=== PATIENT | male | born 1945 | race Caucasian/White ===

== ENCOUNTER 2017-11-25 07:16 | Day surgery (SDC) | payer OTHER ==
[2017-11-22 17:08] VITALS: BMI 18.8
[2017-11-25] MEDS ORDERED: MIDAZOLAM HCL 2 MG/2 ML SINGLE DOSE VIAL ONE ×2 (08:26)
[2017-11-25] MEDS ORDERED: DEXAMETHASONE SOD PHOSPHATE 4 MG/1 ML VIAL ONE (08:43)
[2017-11-25 09:17] VITALS: TEMP 97.8
--- NOTE | 2017-11-25 09:21 | OP ---
Operative Note - Note: Operative Date: 11/25/17 Pre-Operative Diagnosis: Right kidney stone Operation: Right ESWL Findings: 7 mm mid pole kidney stone Post-Operative Diagnosis: Same as Pre-op Surgeon: Lucio Diaz Anesthesia: Fractional Estimated Blood Loss (mls): 0
[2017-11-25 11:07] VITALS: BP 120/72; PULSE 65
--- NOTE | 2017-11-26 07:56 | OP ---
DATE OF OPERATION: 11/25/2017 PREOPERATIVE DIAGNOSIS: Right renal stone. POSTOPERATIVE DIAGNOSIS: Right renal stone. PROCEDURE: Right extracorporeal shock wave lithotripsy. ATTENDING: Ashwin Roper MD ANESTHESIA: Fractional. DESCRIPTION OF OPERATION: The patient was brought in the operating room and placed in supine position on the operating room table. Ultrasonography and fluoroscopy were performed. A 7-mm right mid-pole stone was identified. Anesthesia and preoperative antibiotics were then administered; 3000 impulses at 17 joules of power were administered to the stone. Excellent fragmentation of the stone was noted. No complications were noted. The patient tolerated the procedure very well. ASHWIN ROPER M.D. /[id number]
== END 2017-11-25 11:07 | disposition home or self-care (01) ==
LOC: JASU-SURG 07:16
PROVIDERS: ATTEND Urology
PROC: 0TF3XZZ Fragmentation in Right Kidney Pelvis, External Approach (ICD-10-PCS; principal; 2017-11-25 10:15)
DX: N20.0 Calculus of kidney (principal)

== ENCOUNTER 2019-04-27 06:14 | Day surgery (SDC) | payer OTHER ==
[2019-04-23 14:45] VITALS: BMI 19.4
[2019-04-27] MEDS ORDERED: MIDAZOLAM HCL 2 MG/2 ML SINGLE DOSE VIAL ONE (07:48)
[2019-04-27] MEDS ORDERED: SUCCINYLCHOLINE CHLORIDE 200 MG/10 ML SYRINGE ONE (07:50)
[2019-04-27] MEDS ORDERED: PROPOFOL 20 ML ONE (08:28)
[2019-04-27 09:09] VITALS: TEMP 97.8
--- NOTE | 2019-04-27 09:09 | OP ---
Operative Note - Note: Operative Date: 04/27/19 Pre-Operative Diagnosis: Right renal stone Operation: Right ESWL Findings: 6 mm lower pole Right renal stone Post-Operative Diagnosis: Same as Pre-op Surgeon: Lucio Diaz Anesthesia: Fractional Estimated Blood Loss (mls): 0 Operative Report Dictated: Yes
[2019-04-27 09:59] VITALS: BP 107/67; PULSE 75
--- NOTE | 2019-04-28 09:05 | OP ---
DATE OF OPERATION: 04/27/2019 PREOPERATIVE DIAGNOSIS: Right renal stone. POSTOPERATIVE DIAGNOSIS: Right renal stone. PROCEDURE PERFORMED: Right extracorporeal shock wave lithotripsy. SURGEON: Ashwin Roper MD ANESTHESIA: Fractional. DESCRIPTION OF PROCEDURE: The patient was brought to the operating room and placed in the supine position on the operating room table. Ultrasonography and fluoroscopy were performed. A 6-mm right lower pole renal stone was identified. At this point, anesthesia and preoperative antibiotics were administered. Shock wave lithotripsy was then started. Excellent fragmentation of the 6-mm right lower pole stone was noted. There were no complications were noted. DISPOSITION: The patient was sent to the recovery room. ASHWIN ROPER M.D. [id number]
== END 2019-04-27 09:50 | disposition home or self-care (01) ==
LOC: JASU-SURG 06:14
PROVIDERS: ATTEND Urology
PROC: 0TF3XZZ Fragmentation in Right Kidney Pelvis, External Approach (ICD-10-PCS; principal; 2019-04-27 08:00)
DX: N20.0 Calculus of kidney (principal)

== ENCOUNTER 2021-01-28 19:32 | Inpatient (IN) | payer OTHER ==
[2021-01-28 21:12] LABS: EPI CELLS 36 /uL (0-25.1); HYALINE CASTS 2 /uL (0-3.1); PH,URINE 5.5 (5.0-8.0); URINE APPEARANCE CLOUDY; URINE BACTERIA 14 /uL (0-1359); URINE BILIRUBIN NEGATIVE (NEGATIVE); URINE COLOR YELLOW; URINE GLUCOSE (UA) NEGATIVE (NEGATIVE); URINE KETONE NEGATIVE (NEGATIVE); URINE LEUK ESTERASE 2+ (NEGATIVE); URINE NITRITE NEGATIVE (NEGATIVE); URINE PROTEIN 3+ (NEGATIVE); URINE RBC 182 /uL (0-23.9); URINE WBC 331 /uL (0-25.8)
[2021-01-28 21:16] LABS: BASO % 0.4 % (0-2.0); EOS % 0.6 % (0-4.5); HEMATOCRIT 39.4 % (35.4-49); HEMOGLOBIN 13.2 GM/dL (11.7-16.9); LYMPH % 5.3 % (8-40); MCHC 33.4 g/dl (32.0-35.9); MEAN CELL VOLUME 95.6 fl (80-96); MONO % 7.5 % (3.8-10.2); NEUT % 86.2 % (42.8-82.8); PLATELET COUNT 213 10^3/uL (134-434); RBC 4.12 M/mm3 (4.00-5.60); RDW 15.1 % (11.9-15.9); WHITE BLOOD COUNT 21.1 K/mm3 (4.0-10.0)
[2021-01-28 21:30] LABS: CHLORIDE 104 mmol/L (98-107); SODIUM 137 mmol/L (136-145)
[2021-01-28 21:32] LABS: CALCIUM 8.7 mg/dL (8.5-10.1)
[2021-01-28 21:33] LABS: ALBUMIN 2.6 g/dl (3.4-5.0); ANION GAP 11 MMOL/L (8-16); BLOOD UREA NITROGEN 42.1 mg/dL (7-18); CO2 21 mmol/L (21-32)
[2021-01-28 21:34] LABS: GLUCOSE,RANDOM 88 mg/dL (74-106)
[2021-01-28 21:36] LABS: CREATININE 2.9 mg/dL (0.55-1.3); SGOT/AST 17 U/L (15-37); SGPT/ALT 12 U/L (13-61)
[2021-01-28 21:37] LABS: BILIRUBIN,TOTAL 0.3 mg/dL (0.2-1); TOT PROT 7.5 g/dl (6.4-8.2)
[2021-01-28 21:39] LABS: ALK PHOS 106 U/L (45-117)
[2021-01-28] MEDS ORDERED: PIPERACILLIN/TAZOB 3.375 GM 3.375 GM in DEXTROSE 5%-WATER - 50 ML IVPB ONE (21:49)
[2021-01-28 21:56] LABS: ANISOCYTOSIS 1+; MACROCYTOSIS 0; PLATELET ESTIMATE NORMAL; TARGET CELLS 1+
[2021-01-28] MEDS ORDERED: LACTATED RINGERS SOLUTION 1000 ML INFUS.BAG IV ONE (23:12)
[2021-01-28 23:50] LABS: LACTIC ACID 3.7 mmol/L (0.4-2.0)
[2021-01-29] MEDS ORDERED: LORazepam 1 MG TABLET PO PRN ×2 (01:06→20:01)
[2021-01-29] MEDS ORDERED: ALBUTEROL SO4 HFA INHALER IH PRN (01:15)
[2021-01-29] MEDS ORDERED: THIAMINE HCL 200 MG/2 ML VIAL IVPB ONE (01:47)
[2021-01-29] MEDS: SODIUM CHLORIDE 1,000 ML IV SCH (02:36)
[2021-01-29] MEDS ORDERED: HEPARIN NA (PORCINE) 5,000 UNITS/ML 1ML VIAL ONE ×2 (06:39→14:24)
[2021-01-29] MEDS: HEPARIN NA (PORCINE) 5,000 UNITS/ML 1ML VIAL SQ SCH ×3 (06:45→21:07)
[2021-01-29] MEDS: VANCOMYCIN 250 MG/5 ML ORAL SOLUTION PO SCH ×3 (07:11→21:06)
[2021-01-29 07:31] LABS: HEMATOCRIT 36.9 % (35.4-49); HEMOGLOBIN 12.2 GM/dL (11.7-16.9); MCH 31.7 pg (25.7-33.7); MCHC 32.9 g/dl (32.0-35.9); MEAN CELL VOLUME 96.2 fl (80-96); MEAN PLT VOLUME 8.4 fl (7.5-11.1); PLATELET COUNT 202 10^3/uL (134-434); RBC 3.84 M/mm3 (4.00-5.60); RDW 15.2 % (11.9-15.9); WHITE BLOOD COUNT 18.7 K/mm3 (4.0-10.0)
[2021-01-29 07:50] LABS: MAGNESIUM 1.7 mg/dL (1.8-2.4)
[2021-01-29 07:52] LABS: CREATININE 2.6 mg/dL (0.55-1.3)
[2021-01-29] MEDS ORDERED: TAMSULOSIN HCL 0.4 MG CAP ONE (08:03)
[2021-01-29] MEDS: TAMSULOSIN HCL 0.4 MG CAP PO SCH (08:35)
[2021-01-29] MEDS ORDERED: FOLIC ACID 1 MG TABLET (FP) ONE (09:57)
[2021-01-29] MEDS ORDERED: CEFTRIAXONE 1 GM/50 ML BAG ONE (09:58)
[2021-01-29] MEDS ORDERED: MULTIVITAMINS (DAILY MVI) TABLET (FP) ONE (09:59)
[2021-01-29] MEDS ORDERED: BUDESONIDE/FORMETEROL FUMARATE 160/4.5 mcg INHALER IH SCH (10:00)
[2021-01-29] MEDS ORDERED: THIAMINE HCL 100 MG TABLET (FP) ONE (10:01)
[2021-01-29] MEDS: FOLIC ACID 1 MG TABLET (FP) PO SCH (10:12)
[2021-01-29] MEDS: CEFTRIAXONE 1 GM in DEXTROSE 5%-WATER - 50 ML IVPB SCH (10:12)
[2021-01-29] MEDS: THIAMINE HCL 100 MG TABLET (FP) PO SCH (10:12)
[2021-01-29] MEDS: MULTIVITAMINS (DAILY MVI) TABLET (FP) PO SCH (10:12)
[2021-01-29] MEDS: TIOTROPIUM BROMIDE 2.5 MCG (SPIRIVA) RESPIMAT INHALER IH SCH (10:35)
[2021-01-29] MEDS: HYDROCORTISONE 2.5% TOPICAL CREAM 30 GM TUBE PR SCH (10:35)
[2021-01-29] MEDS: BUDESONIDE/FORMETEROL FUMARATE 160/4.5 mcg INHALER IH SCH ×2 (10:35→21:07)
[2021-01-29] MEDS: BACITRACIN 15 GM TUBE TOPICAL OINTMENT TP SCH (21:06)
[2021-01-29] MEDS: MONTELUKAST NA 10 MG TABLET PO SCH (21:06)
[2021-01-29] MEDS: LORazepam 1 MG TABLET PO SCH (22:44)
[2021-01-30] MEDS: VANCOMYCIN 250 MG/5 ML ORAL SOLUTION PO SCH ×2 (01:00→06:00)
[2021-01-30] MEDS: HEPARIN NA (PORCINE) 5,000 UNITS/ML 1ML VIAL SQ SCH ×3 (06:00→21:37)
[2021-01-30] MEDS: LORazepam 1 MG TABLET PO SCH ×4 (06:01→23:05)
[2021-01-30 09:26] LABS: BASO % 0.8 % (0-2.0); EOS % 0.7 % (0-4.5); HEMOGLOBIN 11.7 GM/dL (11.7-16.9); LYMPH % 5.7 % (8-40); MCH 31.8 pg (25.7-33.7); MCHC 33.3 g/dl (32.0-35.9); MEAN CELL VOLUME 95.5 fl (80-96); MEAN PLT VOLUME 8.5 fl (7.5-11.1); MONO % 7.4 % (3.8-10.2); NEUT % 85.4 % (42.8-82.8); PLATELET COUNT 204 10^3/uL (134-434); RBC 3.66 M/mm3 (4.00-5.60); WHITE BLOOD COUNT 10.3 K/mm3 (4.0-10.0)
[2021-01-30] MEDS ORDERED: cefTRIAXone SODIUM 1 GM VIAL ONE (09:42)
[2021-01-30] MEDS ORDERED: PT OWN MED DRAWER 7, Y5N ONE (09:42)
[2021-01-30] MEDS ORDERED: DEXTROSE 5%-WATER - 50 ML IVPB ONE (09:43)
[2021-01-30] MEDS: CEFTRIAXONE 1 GM in DEXTROSE 5%-WATER - 50 ML IVPB SCH (09:56)
[2021-01-30] MEDS: MULTIVITAMINS (DAILY MVI) TABLET (FP) PO SCH (09:56)
[2021-01-30] MEDS: THIAMINE HCL 100 MG TABLET (FP) PO SCH (09:56)
[2021-01-30] MEDS: TAMSULOSIN HCL 0.4 MG CAP PO SCH (09:57)
[2021-01-30] MEDS: FOLIC ACID 1 MG TABLET (FP) PO SCH (09:57)
[2021-01-30] MEDS: HYDROCORTISONE 2.5% TOPICAL CREAM 30 GM TUBE PR SCH (09:57)
[2021-01-30] MEDS: BACITRACIN 15 GM TUBE TOPICAL OINTMENT TP SCH ×2 (09:57→21:36)
[2021-01-30] MEDS: SODIUM CHLORIDE 1,000 ML IV SCH (09:59)
[2021-01-30] MEDS: BUDESONIDE/FORMETEROL FUMARATE 160/4.5 mcg INHALER IH SCH ×2 (10:05→21:37)
[2021-01-30] MEDS: TIOTROPIUM BROMIDE 2.5 MCG (SPIRIVA) RESPIMAT INHALER IH SCH (10:05)
[2021-01-30 10:06] LABS: BLOOD UREA NITROGEN 31.7 mg/dL (7-18); CALCIUM 8.7 mg/dL (8.5-10.1)
[2021-01-30 10:10] LABS: CREATININE 2.3 mg/dL (0.55-1.3); PHOSPHOROUS 3.1 mg/dL (2.5-4.9)
[2021-01-30 10:11] LABS: BILIRUBIN,TOTAL 0.3 mg/dL (0.2-1)
[2021-01-30 10:13] LABS: ALBUMIN 1.9 g/dl (3.4-5.0)
[2021-01-30 12:01] LABS: MAGNESIUM 1.9 mg/dL (1.8-2.4)
[2021-01-30] MEDS: LACTATED RINGERS SOLUTION 1,000 ML/1,000 ML INFUS.BAG IV SCH (14:46)
[2021-01-30] MEDS: LACTOBACILLUS ACIDOPHILUS 1 TABLET PO SCH (14:46)
[2021-01-30] MEDS: MONTELUKAST NA 10 MG TABLET PO SCH (21:37)
[2021-01-31] MEDS: HEPARIN NA (PORCINE) 5,000 UNITS/ML 1ML VIAL SQ SCH ×3 (06:15→21:24)
[2021-01-31] MEDS: LORazepam 1 MG TABLET PO SCH ×4 (06:16→23:12)
[2021-01-31 09:11] LABS: INR 0.84 (0.83-1.09); PROTHROMBIN TIME (PATIENT) 9.4 SEC (9.7-13.0)
[2021-01-31] MEDS ORDERED: cefTRIAXone SODIUM 1 GM VIAL ONE (10:45)
[2021-01-31] MEDS ORDERED: DEXTROSE 5%-WATER - 50 ML IVPB ONE (10:46)
[2021-01-31] MEDS: TAMSULOSIN HCL 0.4 MG CAP PO SCH (10:57)
[2021-01-31] MEDS: THIAMINE HCL 100 MG TABLET (FP) PO SCH (10:57)
[2021-01-31] MEDS: LACTOBACILLUS ACIDOPHILUS 1 TABLET PO SCH (10:58)
[2021-01-31] MEDS: MULTIVITAMINS (DAILY MVI) TABLET (FP) PO SCH (10:58)
[2021-01-31] MEDS: HYDROCORTISONE 2.5% TOPICAL CREAM 30 GM TUBE PR SCH (10:58)
[2021-01-31] MEDS: FOLIC ACID 1 MG TABLET (FP) PO SCH (10:58)
[2021-01-31] MEDS: CEFTRIAXONE 1 GM in DEXTROSE 5%-WATER - 50 ML IVPB SCH (10:59)
[2021-01-31] MEDS: BACITRACIN 15 GM TUBE TOPICAL OINTMENT TP SCH ×2 (10:59→21:20)
[2021-01-31] MEDS: TIOTROPIUM BROMIDE 2.5 MCG (SPIRIVA) RESPIMAT INHALER IH SCH (11:07)
[2021-01-31] MEDS: BUDESONIDE/FORMETEROL FUMARATE 160/4.5 mcg INHALER IH SCH ×2 (11:07→21:24)
[2021-01-31 11:48] LABS: ALBUMIN 2.1 g/dl (3.4-5.0); BLOOD UREA NITROGEN 21.8 mg/dL (7-18)
[2021-01-31 11:51] LABS: CREATININE 2.2 mg/dL (0.55-1.3)
[2021-01-31 11:52] LABS: HEMATOCRIT 36.7 % (35.4-49); HEMOGLOBIN 12.6 GM/dL (11.7-16.9); MCHC 34.2 g/dl (32.0-35.9); MEAN CELL VOLUME 93.6 fl (80-96); PLATELET COUNT 223 10^3/uL (134-434); RBC 3.92 M/mm3 (4.00-5.60); RDW 14.7 % (11.9-15.9)
[2021-01-31 11:53] LABS: BILIRUBIN,TOTAL 0.2 mg/dL (0.2-1); TOT PROT 6.5 g/dl (6.4-8.2)
[2021-01-31 12:21] LABS: ANISOCYTOSIS 0; HELMET CELLS 0; HOWELL-JOLLY BODIES 0; MACROCYTOSIS 0; OVALOCYTE 0; PLATELET ESTIMATE NORMAL; ROULEAU 0; SICKELED CELLS 0; TARGET CELLS 0; TEAR DROP CELLS 0; TOXIC GRANULATION 0
[2021-01-31] MEDS: LACTATED RINGERS SOLUTION 1,000 ML/1,000 ML INFUS.BAG IV SCH ×2 (18:03→21:18)
[2021-01-31] MEDS: MONTELUKAST NA 10 MG TABLET PO SCH (21:19)
[2021-02-01] MEDS ORDERED: LORazepam 0.5 MG TABLET PO PRN
[2021-02-01] MEDS: LORazepam 0.5 MG TABLET PO SCH ×3 (05:11→18:07)
[2021-02-01] MEDS: HEPARIN NA (PORCINE) 5,000 UNITS/ML 1ML VIAL SQ SCH ×2 (05:12→13:40)
[2021-02-01] MEDS: LACTATED RINGERS SOLUTION 1,000 ML/1,000 ML INFUS.BAG IV SCH ×2 (06:49→13:40)
[2021-02-01 08:01] LABS: BASO % 0.7 % (0-2.0); EOS % 3.3 % (0-4.5); HEMOGLOBIN 11.3 GM/dL (11.7-16.9); LYMPH % 16.1 % (8-40); MCH 31.9 pg (25.7-33.7); MCHC 34.1 g/dl (32.0-35.9); MEAN CELL VOLUME 93.6 fl (80-96); MEAN PLT VOLUME 7.6 fl (7.5-11.1); MONO % 18.8 % (3.8-10.2); NEUT % 61.1 % (42.8-82.8); PLATELET COUNT 238 10^3/uL (134-434); RBC 3.53 M/mm3 (4.00-5.60); RDW 14.5 % (11.9-15.9); WHITE BLOOD COUNT 6.4 K/mm3 (4.0-10.0)
[2021-02-01 08:22] LABS: CALCIUM 8.5 mg/dL (8.5-10.1)
[2021-02-01 08:23] LABS: BLOOD UREA NITROGEN 24.7 mg/dL (7-18)
[2021-02-01 08:26] LABS: CREATININE 2.3 mg/dL (0.55-1.3); PHOSPHOROUS 2.8 mg/dL (2.5-4.9)
[2021-02-01 08:27] LABS: BILIRUBIN,TOTAL 0.3 mg/dL (0.2-1); TOT PROT 5.4 g/dl (6.4-8.2)
[2021-02-01 08:30] LABS: MAGNESIUM 1.8 mg/dL (1.8-2.4)
[2021-02-01 08:32] LABS: ALBUMIN 1.7 g/dl (3.4-5.0)
[2021-02-01] MEDS ORDERED: cefTRIAXone SODIUM 1 GM VIAL ONE (10:07)
[2021-02-01] MEDS ORDERED: DEXTROSE 5%-WATER - 50 ML IVPB ONE (10:08)
[2021-02-01] MEDS: CEFTRIAXONE 1 GM in DEXTROSE 5%-WATER - 50 ML IVPB SCH (10:53)
[2021-02-01] MEDS: BUDESONIDE/FORMETEROL FUMARATE 160/4.5 mcg INHALER IH SCH (10:55)
[2021-02-01] MEDS: TIOTROPIUM BROMIDE 2.5 MCG (SPIRIVA) RESPIMAT INHALER IH SCH (10:57)
[2021-02-01] MEDS: HYDROCORTISONE 2.5% TOPICAL CREAM 30 GM TUBE PR SCH (10:58)
[2021-02-01] MEDS: THIAMINE HCL 100 MG TABLET (FP) PO SCH (10:59)
[2021-02-01] MEDS: TAMSULOSIN HCL 0.4 MG CAP PO SCH (10:59)
[2021-02-01] MEDS: LACTOBACILLUS ACIDOPHILUS 1 TABLET PO SCH (10:59)
[2021-02-01] MEDS: MULTIVITAMINS (DAILY MVI) TABLET (FP) PO SCH (10:59)
[2021-02-01] MEDS ORDERED: ERTAPENEM SODIUM 0.5 GM in SODIUM CHLORIDE 50 ML IVPB SCH (11:00)
[2021-02-01] MEDS: FOLIC ACID 1 MG TABLET (FP) PO SCH (11:02)
[2021-02-01] MEDS: BACITRACIN 15 GM TUBE TOPICAL OINTMENT TP SCH (11:03)
[2021-02-01] MEDS ORDERED: PIPERACILLIN/TAZOB 2.25 GM 2.25 GM in DEXTROSE 5%-WATER - 50 ML IVPB SCH ×2 (13:24→18:00)
[2021-02-01 16:09] VITALS: BP 136/78; PULSE 78; TEMP 98.2
[2021-02-01] MEDS ORDERED: PT OWN MED DRAWER 7, Y5N ONE (16:51)
[2021-02-02] MEDS ORDERED: LORazepam 0.5 MG TABLET PO ONE (05:00)
[2021-02-02] MEDS ORDERED: PIPERACILLIN/TAZOB 3.375 GM 3.375 GM in DEXTROSE 5%-WATER - 50 ML IVPB SCH (10:00)
== END 2021-02-01 19:03 | disposition home or self-care (01) | DRG 862 ==
LOC: JER 19:32 → JERBED 01-29 00:24 → J8W 01-29 19:12
PROVIDERS: ATTEND Internal Medicine
DX: T81.44XA Sepsis following a procedure, initial encounter (principal); A41.9 Sepsis, unspecified organism; N39.0 Urinary tract infection, site not specified; A04.72 Enterocolitis due to Clostridium difficile, not specified as recurrent; N17.9 Acute kidney failure, unspecified; E87.2 Acidosis; F10.230 Alcohol dependence with withdrawal, uncomplicated; N18.4 Chronic kidney disease, stage 4 (severe); Y83.3 Surgical operation with formation of external stoma as the cause of abnormal reaction of the patient, or of later complication, without mention of misadventure at the time of the procedure; I12.9 Hypertensive chronic kidney disease with stage 1 through stage 4 chronic kidney disease, or unspecified chronic kidney disease; N40.0 Benign prostatic hyperplasia without lower urinary tract symptoms; N28.1 Cyst of kidney, acquired; J44.9 Chronic obstructive pulmonary disease, unspecified; R19.7 Diarrhea, unspecified; K64.4 Residual hemorrhoidal skin tags; N41.9 Inflammatory disease of prostate, unspecified; B96.1 Klebsiella pneumoniae [K. pneumoniae] as the cause of diseases classified elsewhere; Z72.0 Tobacco use
CPT/HCPCS: 36415; 71046-TC-FY; 74176-TC; 80048; 80053; 80307; 81003; 83605; 83735; 84100; 84484; 85025; 85027; 85610; 85730; 86850; 86900; 86901; 87040; 87086; 87186; 87324; 87449; 93005; 93010; 97116-GP; 97161-GP; 99285-25; C9803; J1644; U0003; U0005

== ENCOUNTER 2021-03-03 12:17 | Inpatient (IN) | payer OTHER ==
[2021-03-03 12:54] VITALS: BMI 19.9
[2021-03-03] MEDS ORDERED: ALBUTEROL SO4 2.5/IPRATROPIUM 0.5 INH SOL 3 ML VIAL.NEB. NEB ONE ×2 (14:28→15:11)
[2021-03-03] MEDS ORDERED: methylPREDNISolone NA SUCC 125 MG/2 ML VIAL IVPB ONE (14:28)
[2021-03-03] MEDS ORDERED: CEFTRIAXONE 1 GM in DEXTROSE 5%-WATER - 50 ML IVPB ONE (14:30)
[2021-03-03] MEDS ORDERED: AZITHROMYCIN IVPB 500 MG in DEXTROSE 5%-WATER - 250 ML IVPB ONE (14:31)
[2021-03-03] MEDS ORDERED: methylPREDNISolone NA SUCC 125 MG/2 ML VIAL ONE (15:11)
[2021-03-03] MEDS ORDERED: CEFTRIAXONE 1 GM/50 ML BAG ONE (15:12)
[2021-03-03 16:18] LABS: BASO % 0.3 % (0-2.0); EOS % 4.2 % (0-4.5); HEMOGLOBIN 12.9 GM/dL (11.7-16.9); LYMPH % 9.1 % (8-40); MCH 29.6 pg (25.7-33.7); MCHC 33.1 g/dl (32.0-35.9); MEAN CELL VOLUME 89.4 fl (80-96); MEAN PLT VOLUME 7.2 fl (7.5-11.1); MONO % 8.7 % (3.8-10.2); NEUT % 77.7 % (42.8-82.8); PLATELET COUNT 323 10^3/uL (134-434); RBC 4.37 M/mm3 (4.00-5.60); RDW 15.8 % (11.9-15.9); WHITE BLOOD COUNT 11.9 K/mm3 (4.0-10.0)
[2021-03-03 16:43] LABS: CHLORIDE 110 mmol/L (98-107)
[2021-03-03 16:45] LABS: CALCIUM 9.3 mg/dL (8.5-10.1)
[2021-03-03 16:46] LABS: ALBUMIN 3.3 g/dl (3.4-5.0); CO2 19 mmol/L (21-32); GLUCOSE,RANDOM 78 mg/dL (74-106)
[2021-03-03 16:49] LABS: CREATININE 3.8 mg/dL (0.55-1.3); SGOT/AST 33 U/L (15-37); SGPT/ALT 18 U/L (13-61)
[2021-03-03 16:50] LABS: BILIRUBIN,TOTAL 0.5 mg/dL (0.2-1); LDH 485 U/L (87-246)
[2021-03-03 16:51] LABS: TOT PROT 9.2 g/dl (6.4-8.2)
[2021-03-03 16:52] LABS: ALK PHOS 121 U/L (45-117)
[2021-03-03 16:54] LABS: N-TERMINAL BNP 1256.2 pg/ml (5-450)
[2021-03-03] MEDS ORDERED: SODIUM CHLORIDE 0.9% 500 ML INFUS.BAG IV ONE (17:04)
[2021-03-03] MEDS ORDERED: ENOXAPARIN NA (PORCINE) 60 MG/0.6 ML DISP.SYRIN SQ ONE (18:15)
[2021-03-03] MEDS ORDERED: AZITHROMYCIN IVPB 500 MG/250 ML BAG IVPB ONE (18:53)
[2021-03-03 18:59] LABS: ERYTHROCYTE SEDIMENTATION RATE 60 mm/hr (0-20)
[2021-03-03 23:07] LABS: SODIUM 140 mmol/L (136-145)
[2021-03-03 23:18] LABS: ANION GAP 9 MMOL/L (8-16)
[2021-03-03] MEDS ORDERED: HEPARIN NA (PORCINE) 5,000 UNITS/ML 1ML VIAL ONE (23:45)
[2021-03-03] MEDS ORDERED: MONTELUKAST NA 10 MG TABLET ONE (23:45)
[2021-03-03] MEDS: HEPARIN NA (PORCINE) 5,000 UNITS/ML 1ML VIAL SQ SCH (23:57)
[2021-03-03] MEDS: MONTELUKAST NA 10 MG TABLET PO SCH (23:57)
[2021-03-04 02:03] LABS: BLOOD UREA NITROGEN 52.9 mg/dL (7-18); CALCIUM 8.7 mg/dL (8.5-10.1)
[2021-03-04 02:07] LABS: CREATININE 3.7 mg/dL (0.55-1.3)
[2021-03-04 02:08] LABS: EPI CELLS 2 /uL (0-25.1); HYALINE CASTS 0 /uL (0-3.1); URINE APPEARANCE CLEAR; URINE BACTERIA 0 /uL (0-1359); URINE BILIRUBIN NEGATIVE (NEGATIVE); URINE COLOR YELLOW; URINE GLUCOSE (UA) TRACE (NEGATIVE); URINE KETONE NEGATIVE (NEGATIVE); URINE LEUK ESTERASE NEGATIVE (NEGATIVE); URINE NITRITE NEGATIVE (NEGATIVE); URINE PROTEIN 3+ (NEGATIVE); URINE RBC 30 /uL (0-23.9); URINE UROBILINOGEN 0.2 mg/dL (0.2-1.0); URINE WBC 2 /uL (0-25.8)
[2021-03-04] MEDS ORDERED: methylPREDNISolone NA SUCC 40 MG/1 ML VIAL ONE ×3 (04:37→19:36)
[2021-03-04] MEDS: BUDESONIDE/FORMETEROL FUMARATE 160/4.5 mcg INHALER IH SCH ×3 (05:00→22:41)
[2021-03-04] MEDS: methylPREDNISolone NA SUCC 40 MG/1 ML VIAL IVPUSH SCH ×3 (05:00→19:46)
[2021-03-04 09:41] LABS: HEMATOCRIT 34.4 % (35.4-49); HEMOGLOBIN 11.6 GM/dL (11.7-16.9); MCH 30.7 pg (25.7-33.7); MCHC 33.7 g/dl (32.0-35.9); MEAN CELL VOLUME 91.3 fl (80-96); MEAN PLT VOLUME 7.1 fl (7.5-11.1); PLATELET COUNT 308 10^3/uL (134-434); RBC 3.77 M/mm3 (4.00-5.60); RDW 15.8 % (11.9-15.9); WHITE BLOOD COUNT 9.1 K/mm3 (4.0-10.0)
[2021-03-04] MEDS ORDERED: HEPARIN NA (PORCINE) 5,000 UNITS/ML 1ML VIAL ONE ×2 (10:00→22:22)
[2021-03-04] MEDS ORDERED: AZITHROMYCIN IVPB 500 MG/250 ML BAG IVPB ONE (10:01)
[2021-03-04] MEDS: AZITHROMYCIN IVPB 500 MG/250 ML BAG IVPB SCH (10:13)
[2021-03-04] MEDS: HEPARIN NA (PORCINE) 5,000 UNITS/ML 1ML VIAL SQ SCH ×2 (10:13→22:41)
[2021-03-04] MEDS: TIOTROPIUM BROMIDE 2.5 MCG (SPIRIVA) RESPIMAT INHALER IH SCH (10:14)
[2021-03-04 10:23] LABS: ALBUMIN 2.8 g/dl (3.4-5.0); BLOOD UREA NITROGEN 53.8 mg/dL (7-18); MAGNESIUM 2.3 mg/dL (1.8-2.4)
[2021-03-04 10:25] LABS: PHOSPHOROUS 3.2 mg/dL (2.5-4.9)
[2021-03-04 10:26] LABS: BILIRUBIN,TOTAL 0.2 mg/dL (0.2-1); CREATININE 3.7 mg/dL (0.55-1.3)
[2021-03-04 10:27] LABS: TOT PROT 7.6 g/dl (6.4-8.2)
[2021-03-04 10:41] LABS: ANISOCYTOSIS 0; MACROCYTOSIS 0; PLATELET ESTIMATE NORMAL
[2021-03-04] MEDS ORDERED: SODIUM ZIRCONIUM CYCLOSILICATE (LOKELMA) 5 GM PACKET ONE (14:12)
[2021-03-04] MEDS ORDERED: ALBUTEROL SO4 2.5/IPRATROPIUM 0.5 INH SOL 3 ML VIAL.NEB. NEB ONE ×3 (14:12→21:05)
[2021-03-04] MEDS: ALBUTEROL SO4 2.5/IPRATROPIUM 0.5 INH SOL 3 ML VIAL.NEB. NEB SCH ×2 (14:30→19:46)
[2021-03-04] MEDS: SODIUM ZIRCONIUM CYCLOSILICATE (LOKELMA) 5 GM PACKET PO SCH (14:30)
[2021-03-04] MEDS: SODIUM CHLORIDE 1,000 ML IV SCH (16:32)
[2021-03-04] MEDS ORDERED: ALBUTEROL SO4 0.5 % INH SOLN 2.5 MG/0.5 ML VIAL.NEB. NEB ONE (21:04)
[2021-03-04] MEDS ORDERED: amLODIPine BESYLATE 5 MG TABLET (FP) PO ONE (22:16)
[2021-03-04] MEDS ORDERED: MONTELUKAST NA 10 MG TABLET ONE (22:22)
[2021-03-04] MEDS ORDERED: amLODIPine BESYLATE 5 MG TABLET (FP) ONE (22:22)
[2021-03-04] MEDS: MONTELUKAST NA 10 MG TABLET PO SCH (22:41)
[2021-03-05] MEDS ORDERED: methylPREDNISolone NA SUCC 40 MG/1 ML VIAL ONE ×3 (02:45→17:04)
[2021-03-05] MEDS: methylPREDNISolone NA SUCC 40 MG/1 ML VIAL IVPUSH SCH ×3 (03:00→17:26)
[2021-03-05] MEDS ORDERED: SODIUM ZIRCONIUM CYCLOSILICATE (LOKELMA) 5 GM PACKET ONE (07:48)
[2021-03-05] MEDS ORDERED: ALBUTEROL SO4 2.5/IPRATROPIUM 0.5 INH SOL 3 ML VIAL.NEB. NEB ONE ×2 (07:48→17:03)
[2021-03-05] MEDS ORDERED: HEPARIN NA (PORCINE) 5,000 UNITS/ML 1ML VIAL ONE ×2 (07:49→21:01)
[2021-03-05] MEDS ORDERED: AZITHROMYCIN IVPB 500 MG/250 ML BAG IVPB ONE (07:49)
[2021-03-05] MEDS: ALBUTEROL SO4 2.5/IPRATROPIUM 0.5 INH SOL 3 ML VIAL.NEB. NEB SCH ×3 (09:00→21:17)
[2021-03-05] MEDS: HEPARIN NA (PORCINE) 5,000 UNITS/ML 1ML VIAL SQ SCH ×2 (09:04→21:17)
[2021-03-05 09:21] LABS: HEMATOCRIT 33.2 % (35.4-49); HEMOGLOBIN 10.9 GM/dL (11.7-16.9); MCH 29.8 pg (25.7-33.7); MCHC 32.9 g/dl (32.0-35.9); MEAN CELL VOLUME 90.8 fl (80-96); MEAN PLT VOLUME 7.3 fl (7.5-11.1); PLATELET COUNT 318 10^3/uL (134-434); RBC 3.66 M/mm3 (4.00-5.60); RDW 15.7 % (11.9-15.9); WHITE BLOOD COUNT 19.2 K/mm3 (4.0-10.0)
[2021-03-05] MEDS: BUDESONIDE/FORMETEROL FUMARATE 160/4.5 mcg INHALER IH SCH ×2 (09:30→21:17)
[2021-03-05] MEDS: SODIUM ZIRCONIUM CYCLOSILICATE (LOKELMA) 5 GM PACKET PO SCH (09:30)
[2021-03-05 09:55] LABS: BLOOD UREA NITROGEN 57.9 mg/dL (7-18); MAGNESIUM 2.2 mg/dL (1.8-2.4)
[2021-03-05 09:57] LABS: ALBUMIN 2.7 g/dl (3.4-5.0)
[2021-03-05 09:58] LABS: CREATININE 3.8 mg/dL (0.55-1.3)
[2021-03-05 10:00] LABS: BILIRUBIN,TOTAL 0.2 mg/dL (0.2-1); TOT PROT 7.3 g/dl (6.4-8.2)
[2021-03-05] MEDS: AZITHROMYCIN IVPB 500 MG/250 ML BAG IVPB SCH (10:00)
[2021-03-05 10:28] LABS: ANISOCYTOSIS 1+; MACROCYTOSIS 0; PLATELET ESTIMATE NORMAL
[2021-03-05] MEDS ORDERED: CEFTRIAXONE 1 GM in DEXTROSE 5%-WATER - 50 ML IVPB SCH (10:45)
[2021-03-05] MEDS ORDERED: POLYETHYLENE GLYCOL (HEALTHYLAX) 3350 17 GM PACKET PO ONE (14:16)
[2021-03-05] MEDS ORDERED: amLODIPine BESYLATE 10 MG TABLET (FP) PO SCH (14:45)
[2021-03-05] MEDS ORDERED: POLYETHYLENE GLYCOL (HEALTHYLAX) 3350 17 GM PACKET ONE ×2 (17:03→21:00)
[2021-03-05] MEDS ORDERED: TAMSULOSIN HCL 0.4 MG CAP ONE (17:03)
[2021-03-05] MEDS ORDERED: METOPROLOL TARTRATE 50 MG TABLET (FP) ONE (17:03)
[2021-03-05] MEDS ORDERED: amLODIPine BESYLATE 5 MG TABLET (FP) ONE ×2 (17:05→17:14)
[2021-03-05] MEDS: TIOTROPIUM BROMIDE 2.5 MCG (SPIRIVA) RESPIMAT INHALER IH SCH (17:24)
[2021-03-05] MEDS: SODIUM CHLORIDE 1,000 ML IV SCH (17:24)
[2021-03-05] MEDS: INSULIN SLIDING SCALE (NOVOLOG) 1 VIAL SQ SCH ×3 (17:24→21:17)
[2021-03-05] MEDS: TAMSULOSIN HCL 0.4 MG CAP PO SCH (17:25)
[2021-03-05] MEDS: METOPROLOL TARTRATE 50 MG TABLET (FP) PO SCH (17:25)
[2021-03-05] MEDS ORDERED: DOCUSATE SODIUM 100 MG CAPSULE (FP) PO ONE (21:00)
[2021-03-05] MEDS ORDERED: MONTELUKAST NA 10 MG TABLET ONE (21:00)
[2021-03-05] MEDS: DOCUSATE SODIUM 100 MG CAPSULE (FP) PO SCH (21:17)
[2021-03-05] MEDS: POLYETHYLENE GLYCOL (HEALTHYLAX) 3350 17 GM PACKET PO SCH (21:17)
[2021-03-05] MEDS: MONTELUKAST NA 10 MG TABLET PO SCH (21:17)
[2021-03-06] MEDS ORDERED: methylPREDNISolone NA SUCC 40 MG/1 ML VIAL ONE ×2 (06:23→09:42)
[2021-03-06] MEDS: methylPREDNISolone NA SUCC 40 MG/1 ML VIAL IVPUSH SCH ×4 (06:27→23:25)
[2021-03-06] MEDS: INSULIN SLIDING SCALE (NOVOLOG) 1 VIAL SQ SCH ×4 (07:15→21:26)
[2021-03-06 08:01] LABS: BASO % 0.1 % (0-2.0); HEMATOCRIT 30.7 % (35.4-49); HEMOGLOBIN 10.1 GM/dL (11.7-16.9); LYMPH % 4.1 % (8-40); MEAN CELL VOLUME 90.9 fl (80-96); MEAN PLT VOLUME 6.9 fl (7.5-11.1); NEUT % 88.8 % (42.8-82.8); PLATELET COUNT 300 10^3/uL (134-434); RBC 3.38 M/mm3 (4.00-5.60)
[2021-03-06 08:31] LABS: ALBUMIN 2.6 g/dl (3.4-5.0); BLOOD UREA NITROGEN 63.2 mg/dL (7-18); CALCIUM 8.8 mg/dL (8.5-10.1)
[2021-03-06 08:32] LABS: MAGNESIUM 2.3 mg/dL (1.8-2.4)
[2021-03-06 08:34] LABS: BILIRUBIN,TOTAL 0.3 mg/dL (0.2-1); CREATININE 3.6 mg/dL (0.55-1.3); TOT PROT 6.6 g/dl (6.4-8.2)
[2021-03-06] MEDS: ALBUTEROL SO4 2.5/IPRATROPIUM 0.5 INH SOL 3 ML VIAL.NEB. NEB SCH ×2 (09:00→14:45)
[2021-03-06] MEDS: TAMSULOSIN HCL 0.4 MG CAP PO SCH (09:00)
[2021-03-06] MEDS ORDERED: SODIUM ZIRCONIUM CYCLOSILICATE (LOKELMA) 5 GM PACKET ONE (09:40)
[2021-03-06] MEDS ORDERED: MULTIVITAMINS (DAILY MVI) TABLET (FP) ONE (09:40)
[2021-03-06] MEDS ORDERED: ALBUTEROL SO4 2.5/IPRATROPIUM 0.5 INH SOL 3 ML VIAL.NEB. NEB ONE ×4 (09:40→20:31)
[2021-03-06] MEDS ORDERED: POLYETHYLENE GLYCOL (HEALTHYLAX) 3350 17 GM PACKET ONE (09:40)
[2021-03-06] MEDS ORDERED: METOPROLOL TARTRATE 50 MG TABLET (FP) ONE (09:41)
[2021-03-06] MEDS ORDERED: TAMSULOSIN HCL 0.4 MG CAP ONE (09:41)
[2021-03-06] MEDS ORDERED: HEPARIN NA (PORCINE) 5,000 UNITS/ML 1ML VIAL ONE (09:42)
[2021-03-06] MEDS ORDERED: AZITHROMYCIN IVPB 500 MG/250 ML BAG IVPB ONE (09:42)
[2021-03-06] MEDS: amLODIPine BESYLATE 5 MG TABLET (FP) PO SCH (10:00)
[2021-03-06] MEDS: MULTIVITAMINS (DAILY MVI) TABLET (FP) PO SCH (10:00)
[2021-03-06] MEDS: AZITHROMYCIN IVPB 500 MG/250 ML BAG IVPB SCH (10:00)
[2021-03-06] MEDS: BUDESONIDE/FORMETEROL FUMARATE 160/4.5 mcg INHALER IH SCH ×2 (10:00→23:25)
[2021-03-06] MEDS: TIOTROPIUM BROMIDE 2.5 MCG (SPIRIVA) RESPIMAT INHALER IH SCH (10:00)
[2021-03-06] MEDS: SODIUM ZIRCONIUM CYCLOSILICATE (LOKELMA) 5 GM PACKET PO SCH (10:20)
[2021-03-06] MEDS: HEPARIN NA (PORCINE) 5,000 UNITS/ML 1ML VIAL SQ SCH ×2 (10:20→23:25)
[2021-03-06] MEDS: METOPROLOL TARTRATE 50 MG TABLET (FP) PO SCH (10:30)
[2021-03-06] MEDS: POLYETHYLENE GLYCOL (HEALTHYLAX) 3350 17 GM PACKET PO SCH ×2 (11:28→21:24)
[2021-03-06] MEDS ORDERED: SODIUM CHLORIDE 0.45% 1,000 ML IV SCH (13:30)
[2021-03-06] MEDS: SODIUM CHLORIDE 1,000 ML IV SCH (16:33)
[2021-03-06] MEDS: DOCUSATE SODIUM 100 MG CAPSULE (FP) PO SCH (21:24)
[2021-03-06 22:05] LABS: EPI CELLS 1 /uL (0-25.1); HYALINE CASTS 0 /uL (0-3.1); PH,URINE 5.5 (5.0-8.0); URINE APPEARANCE CLEAR; URINE BACTERIA 0 /uL (0-1359); URINE BILIRUBIN NEGATIVE (NEGATIVE); URINE COLOR YELLOW; URINE GLUCOSE (UA) NEGATIVE (NEGATIVE); URINE KETONE NEGATIVE (NEGATIVE); URINE LEUK ESTERASE NEGATIVE (NEGATIVE); URINE NITRITE NEGATIVE (NEGATIVE); URINE PROTEIN 3+ (NEGATIVE); URINE RBC 13 /uL (0-23.9); URINE UROBILINOGEN 0.2 mg/dL (0.2-1.0); URINE WBC 2 /uL (0-25.8)
[2021-03-06] MEDS: MONTELUKAST NA 10 MG TABLET PO SCH (23:25)
[2021-03-07] MEDS: ALBUTEROL SO4 2.5/IPRATROPIUM 0.5 INH SOL 3 ML VIAL.NEB. NEB SCH ×3 (06:30→14:01)
[2021-03-07] MEDS: INSULIN SLIDING SCALE (NOVOLOG) 1 VIAL SQ SCH ×3 (06:32→17:42)
[2021-03-07 06:47] LABS: HEMATOCRIT 30.2 % (35.4-49); MCH 30.1 pg (25.7-33.7); MEAN CELL VOLUME 91.4 fl (80-96); MEAN PLT VOLUME 7.5 fl (7.5-11.1); PLATELET COUNT 306 10^3/uL (134-434); RDW 15.4 % (11.9-15.9); WHITE BLOOD COUNT 11.1 K/mm3 (4.0-10.0)
[2021-03-07 07:05] LABS: ALBUMIN 2.2 g/dl (3.4-5.0); BLOOD UREA NITROGEN 59.6 mg/dL (7-18); CALCIUM 8.4 mg/dL (8.5-10.1)
[2021-03-07 07:08] LABS: CREATININE 3.5 mg/dL (0.55-1.3)
[2021-03-07 07:10] LABS: BILIRUBIN,TOTAL 0.2 mg/dL (0.2-1); TOT PROT 5.9 g/dl (6.4-8.2)
[2021-03-07] MEDS: TAMSULOSIN HCL 0.4 MG CAP PO SCH (09:30)
[2021-03-07] MEDS: HEPARIN NA (PORCINE) 5,000 UNITS/ML 1ML VIAL SQ SCH (09:43)
[2021-03-07] MEDS: methylPREDNISolone NA SUCC 40 MG/1 ML VIAL IVPUSH SCH (09:44)
[2021-03-07] MEDS: MULTIVITAMINS (DAILY MVI) TABLET (FP) PO SCH (09:44)
[2021-03-07] MEDS: AZITHROMYCIN IVPB 500 MG/250 ML BAG IVPB SCH (09:44)
[2021-03-07] MEDS: POLYETHYLENE GLYCOL (HEALTHYLAX) 3350 17 GM PACKET PO SCH (09:45)
[2021-03-07] MEDS: amLODIPine BESYLATE 5 MG TABLET (FP) PO SCH (09:45)
[2021-03-07] MEDS: METOPROLOL TARTRATE 50 MG TABLET (FP) PO SCH (09:45)
[2021-03-07] MEDS: BUDESONIDE/FORMETEROL FUMARATE 160/4.5 mcg INHALER IH SCH (09:48)
[2021-03-07 10:31] LABS: ANISOCYTOSIS 0; HELMET CELLS 1+; MACROCYTOSIS 0; PLATELET ESTIMATE NORMAL; ROULEAU 1+; TARGET CELLS 1+
[2021-03-07] MEDS ORDERED: SODIUM ZIRCONIUM CYCLOSILICATE (LOKELMA) 5 GM PACKET PO SCH (12:00)
[2021-03-07] MEDS ORDERED: PT OWN MED DRAWER 7, Y5N ONE (12:33)
[2021-03-07] MEDS: TIOTROPIUM BROMIDE 2.5 MCG (SPIRIVA) RESPIMAT INHALER IH SCH (13:27)
[2021-03-07 15:31] VITALS: BP 128/75; PULSE 73; TEMP 98.7
== END 2021-03-07 16:33 | disposition home or self-care (01) | DRG 191 ==
LOC: JER 12:17 → JERBED 18:15 → J4W 03-06 20:28
PROVIDERS: ADMIT Pediatrics; ATTEND Nurse Practitioner Family
DX: J44.1 Chronic obstructive pulmonary disease with (acute) exacerbation (principal); N17.9 Acute kidney failure, unspecified; N40.0 Benign prostatic hyperplasia without lower urinary tract symptoms; F17.210 Nicotine dependence, cigarettes, uncomplicated; E87.5 Hyperkalemia; I12.9 Hypertensive chronic kidney disease with stage 1 through stage 4 chronic kidney disease, or unspecified chronic kidney disease; N18.9 Chronic kidney disease, unspecified
CPT/HCPCS: 36415; 71046-TC-FY; 76775-TC; 80048; 80053; 81003; 82436; 82550; 82570; 82728; 82962; 83615; 83735; 83880; 84100; 84133; 84300; 84484; 85025; 85379; 85651; 86140; 87086; 87804; 87899; 93005; 93010; 93306-TC; 94640; 94761; 97116-GP; 97161-GP; 99285-25; C9803; J1644; U0003; U0005

== ENCOUNTER 2021-06-08 04:15 | Day surgery (SDC) | payer OTHER ==
[2021-06-07 12:24] VITALS: BMI 20.3
[~2021-06-08 04:15] MED LIST: LIDOCAINE HCL 1%, 10 MG/ML (50 mL VIAL) INF ONE
[2021-06-08] MEDS ORDERED: ROPIVACAINE HCL 0.5% 30ML VIAL ONE (13:22)
[2021-06-08] MEDS ORDERED: LIDOCAINE HCL 2% (20ML MULTI-DOSE VIAL) ONE (13:36)
[2021-06-08] MEDS ORDERED: MIDAZOLAM HCL 2 MG/2 ML SINGLE DOSE VIAL ONE ×3 (13:38→14:49)
[2021-06-08] MEDS ORDERED: POVIDONE-IODINE OINTMENT 10% - 28.4 GM TUBE ONE (13:49)
[2021-06-08] MEDS ORDERED: PROPOFOL 20 ML ONE ×3 (14:55→16:24)
[2021-06-08] MEDS ORDERED: ceFAZolin SODIUM 1 GM VIAL IVPB ONE (15:00)
[2021-06-08] MEDS ORDERED: LIDOCAINE HCL/PF 2% SDV 5ML VIAL ONE (15:04)
[2021-06-08] MEDS ORDERED: LIDOCAINE HCL 1%, 10 MG/ML (20ML VIAL) NR ONE (15:10)
[2021-06-08] MEDS ORDERED: ceFAZolin SODIUM 1 GM VIAL ONE (15:11)
[2021-06-08] MEDS ORDERED: GLYCOPYRROLATE 0.2 MG/1 ML VIAL ONE (15:11)
[2021-06-08] MEDS ORDERED: ONDANSETRON 4 MG/2 ML VIAL ONE (15:11)
[2021-06-08] MEDS ORDERED: oxyCODONE HCL 5 MG TABLET PO PRN (15:16)
[2021-06-08] MEDS ORDERED: ONDANSETRON 4 MG/2 ML VIAL IVPUSH PRN (15:16)
[2021-06-08] MEDS ORDERED: SODIUM CHLORIDE 1,000 ML IV SCH (15:30)
[2021-06-08 18:35] VITALS: TEMP 97.8
[2021-06-08 19:03] VITALS: BP 152/69; PULSE 58
== END 2021-06-08 19:00 | disposition home or self-care (01) ==
LOC: JASU-SURG 04:15
PROVIDERS: ATTEND Surgery Vascular Surgery
PROC: 031C3ZF Bypass Left Radial Artery to Lower Arm Vein, Percutaneous Approach (ICD-10-PCS; principal; 2021-06-08 13:30)
DX: I12.0 Hypertensive chronic kidney disease with stage 5 chronic kidney disease or end stage renal disease (principal); N18.6 End stage renal disease; Z99.2 Dependence on renal dialysis
CPT/HCPCS: 94760

== ENCOUNTER 2021-06-09 22:54 | Inpatient (IN) | payer OTHER ==
[2021-06-09] MEDS ORDERED: ALBUTEROL SO4 2.5/IPRATROPIUM 0.5 INH SOL 3 ML VIAL.NEB. NEB ONE ×3 (22:55→23:13)
[2021-06-09] MEDS ORDERED: DEXAMETHASONE SOD PHOSPHATE 10 MG/1 ML VIAL IVPUSH ONE (23:09)
[2021-06-09] MEDS ORDERED: methylPREDNISolone NA SUCC 125 MG/2 ML VIAL IVPUSH ONE (23:12)
[2021-06-09] MEDS ORDERED: methylPREDNISolone NA SUCC 125 MG/2 ML VIAL ONE (23:52)
[2021-06-09 23:55] LABS: BASO % 0.4 % (0-2.0); EOS % 3.9 % (0-4.5); HEMATOCRIT 37.6 % (35.4-49); HEMOGLOBIN 12.1 GM/dL (11.7-16.9); LYMPH % 17.8 % (8-40); MCH 28.1 pg (25.7-33.7); MCHC 32.3 g/dl (32.0-35.9); MEAN CELL VOLUME 86.9 fl (80-96); MEAN PLT VOLUME 6.6 fl (7.5-11.1); NEUT % 67.9 % (42.8-82.8); PLATELET COUNT 294 10^3/uL (134-434); RBC 4.33 M/mm3 (4.00-5.60); RDW 15.9 % (11.9-15.9); WHITE BLOOD COUNT 11.1 K/mm3 (4.0-10.0)
[2021-06-10 00:06] LABS: INR 0.87 (0.83-1.09)
[2021-06-10 00:20] LABS: CHLORIDE 114 mmol/L (98-107); SODIUM 136 mmol/L (136-145)
[2021-06-10 00:22] LABS: CALCIUM 8.6 mg/dL (8.5-10.1)
[2021-06-10 00:23] LABS: BLOOD UREA NITROGEN 50.7 mg/dL (7-18); CO2 17 mmol/L (21-32); GLUCOSE,RANDOM 117 mg/dL (74-106); MAGNESIUM 2.4 mg/dL (1.8-2.4)
[2021-06-10] MEDS ORDERED: ALBUTEROL SO4 0.083% IH SOL 2.5 MG/3 ML VIAL.NEB. NEB ONE ×2 (00:23→00:32)
[2021-06-10 00:26] LABS: SGOT/AST 57 U/L (15-37)
[2021-06-10 00:28] LABS: BILIRUBIN,TOTAL 0.2 mg/dL (0.2-1); TOT PROT 7.9 g/dl (6.4-8.2)
[2021-06-10 00:29] LABS: ALK PHOS 92 U/L (45-117)
[2021-06-10 00:31] LABS: N-TERMINAL BNP 1379.4 pg/ml (5-450)
[2021-06-10 00:41] LABS: ANION GAP 4 MMOL/L (8-16); SGPT/ALT 16 U/L (13-61)
[2021-06-10 01:17] LABS: VENOUS BASE EXCESS -9.6 mmol/L (-2-2); VENOUS O2 SATURATION 57.8 % (70-80); VENOUS PCO2 42.8 mmHg (38-52); VENOUS PH 7.23 (7.310-7.410)
[2021-06-10 02:06] LABS: CALCIUM 8.7 mg/dL (8.5-10.1)
[2021-06-10 02:07] LABS: BLOOD UREA NITROGEN 50.4 mg/dL (7-18)
[2021-06-10] MEDS ORDERED: CHOLECALCIFEROL (VIT D3) 400 UNIT (10 MCG) TABLET PO SCH (03:30)
[2021-06-10] MEDS ORDERED: PATIENT'S OWN MEDICATION (NON-FORMULARY) (Beclomethasone Dipropionate [Qvar] 8.7 GM Aer.W. IH SCH (03:30)
[2021-06-10] MEDS ORDERED: MAGNESIUM SULF 50% (8.12 MEQ/2 ML-1 GM VIAL) IVPB ONE (04:12)
[2021-06-10] MEDS ORDERED: FUROSEMIDE 40 MG/4 ML INJECTABLE VIAL IVPUSH ONE (04:15)
[2021-06-10] MEDS ORDERED: ALBUTEROL SO4 2.5/IPRATROPIUM 0.5 INH SOL 3 ML VIAL.NEB. NEB SCH (06:00)
[2021-06-10] MEDS: ALBUTEROL SO4 HFA INHALER IH SCH ×2 (06:17→09:49)
[2021-06-10] MEDS: BUDESONIDE/FORMETEROL FUMARATE 80/4.5 mcg INHALER IH ONE ×2 (06:18→09:48)
[2021-06-10] MEDS: HEPARIN NA (PORCINE) 5,000 UNITS/ML 1ML VIAL SQ SCH ×3 (06:18→21:26)
[2021-06-10] MEDS: methylPREDNISolone NA SUCC 40 MG/1 ML VIAL IVPUSH SCH ×3 (06:18→21:26)
[2021-06-10 06:34] LABS: CALCIUM 8.5 mg/dL (8.5-10.1)
[2021-06-10 06:35] LABS: ALBUMIN 2.8 g/dl (3.4-5.0); BLOOD UREA NITROGEN 51.8 mg/dL (7-18); MAGNESIUM 2.1 mg/dL (1.8-2.4)
[2021-06-10 06:38] LABS: PHOSPHOROUS 3.7 mg/dL (2.5-4.9)
[2021-06-10 06:39] LABS: BILIRUBIN,TOTAL 0.2 mg/dL (0.2-1); TOT PROT 6.7 g/dl (6.4-8.2)
[2021-06-10 06:54] LABS: HEMATOCRIT 34.9 % (35.4-49); HEMOGLOBIN 11.2 GM/dL (11.7-16.9); MCH 27.8 pg (25.7-33.7); MCHC 32.1 g/dl (32.0-35.9); MEAN CELL VOLUME 86.5 fl (80-96); MEAN PLT VOLUME 6.9 fl (7.5-11.1); PLATELET COUNT 306 10^3/uL (134-434); RBC 4.04 M/mm3 (4.00-5.60); RDW 15.9 % (11.9-15.9); WHITE BLOOD COUNT 9.6 K/mm3 (4.0-10.0)
[2021-06-10] MEDS: METOPROLOL TARTRATE 50 MG TABLET (FP) PO SCH (09:48)
[2021-06-10] MEDS: amLODIPine BESYLATE 10 MG TABLET (FP) PO SCH (09:48)
[2021-06-10] MEDS: NICOTINE 21 MG/24 HOURS TOPICAL PATCH TD SCH (09:48)
[2021-06-10] MEDS: MULTIVITAMINS (DAILY MVI) TABLET (FP) PO SCH (09:49)
[2021-06-10] MEDS: TAMSULOSIN HCL 0.4 MG CAP PO SCH ×2 (09:54→21:26)
[2021-06-10] MEDS: SODIUM ZIRCONIUM CYCLOSILICATE (LOKELMA) 5 GM PACKET PO SCH (09:54)
[2021-06-10] MEDS: AZITHROMYCIN IVPB 500 MG/250 ML BAG IVPB SCH (09:54)
[2021-06-10] MEDS ORDERED: predniSONE 10 MG TABLET (UD) PO SCH (10:00)
[2021-06-10] MEDS ORDERED: HEPARIN NA (PORCINE) 5,000 UNITS/ML 1ML VIAL SQ SCH (10:00)
[2021-06-10] MEDS ORDERED: OXYBUTYNIN CHLORIDE 5 MG TABLET PO SCH (10:00)
[2021-06-10] MEDS ORDERED: ALBUTEROL SO4 HFA INHALER IH PRN (10:41)
[2021-06-10 11:05] LABS: EPI CELLS 2 /uL (0-25.1); HYALINE CASTS 0 /uL (0-3.1); URINE APPEARANCE CLEAR; URINE BACTERIA 3 /uL (0-1359); URINE BILIRUBIN NEGATIVE (NEGATIVE); URINE COLOR YELLOW; URINE GLUCOSE (UA) 1+ (NEGATIVE); URINE KETONE NEGATIVE (NEGATIVE); URINE LEUK ESTERASE NEGATIVE (NEGATIVE); URINE NITRITE NEGATIVE (NEGATIVE); URINE PROTEIN 2+ (NEGATIVE); URINE RBC 13 /uL (0-23.9); URINE UROBILINOGEN 0.2 mg/dL (0.2-1.0); URINE WBC 2 /uL (0-25.8)
[2021-06-10] MEDS: ALBUTEROL SO4 2.5/IPRATROPIUM 0.5 INH SOL 3 ML VIAL.NEB. NEB SCH ×3 (18:25→19:34)
[2021-06-10] MEDS: MONTELUKAST NA 10 MG TABLET PO SCH (21:26)
[2021-06-11] MEDS: methylPREDNISolone NA SUCC 40 MG/1 ML VIAL IVPUSH SCH ×3 (05:41→21:10)
[2021-06-11] MEDS: HEPARIN NA (PORCINE) 5,000 UNITS/ML 1ML VIAL SQ SCH ×3 (05:41→21:08)
[2021-06-11] MEDS: ALBUTEROL SO4 2.5/IPRATROPIUM 0.5 INH SOL 3 ML VIAL.NEB. NEB SCH ×4 (07:28→20:10)
[2021-06-11] MEDS: amLODIPine BESYLATE 10 MG TABLET (FP) PO SCH (09:29)
[2021-06-11] MEDS: MULTIVITAMINS (DAILY MVI) TABLET (FP) PO SCH (09:29)
[2021-06-11] MEDS: TAMSULOSIN HCL 0.4 MG CAP PO SCH ×2 (09:29→21:09)
[2021-06-11] MEDS: NICOTINE 21 MG/24 HOURS TOPICAL PATCH TD SCH (09:29)
[2021-06-11] MEDS: METOPROLOL TARTRATE 50 MG TABLET (FP) PO SCH (09:29)
[2021-06-11] MEDS: AZITHROMYCIN IVPB 500 MG/250 ML BAG IVPB SCH (09:30)
[2021-06-11] MEDS: SODIUM ZIRCONIUM CYCLOSILICATE (LOKELMA) 5 GM PACKET PO SCH (09:34)
[2021-06-11 10:09] LABS: SARS-CoV-2 NAA Not Detected (Not Detected)
[2021-06-11] MEDS ORDERED: DOCUSATE SODIUM 100 MG CAPSULE (FP) PO ONE (11:06)
[2021-06-11] MEDS ORDERED: GLYCERIN 1 RECTAL SUPPOSITORY, ADULT RC ONE (12:00)
[2021-06-11 12:10] LABS: HEMATOCRIT 31.2 % (35.4-49); HEMOGLOBIN 10.3 GM/dL (11.7-16.9); MCH 28.2 pg (25.7-33.7); MCHC 33.1 g/dl (32.0-35.9); MEAN CELL VOLUME 85.3 fl (80-96); MEAN PLT VOLUME 6.7 fl (7.5-11.1); PLATELET COUNT 302 10^3/uL (134-434); RBC 3.65 M/mm3 (4.00-5.60); RDW 16.1 % (11.9-15.9); WHITE BLOOD COUNT 15.7 K/mm3 (4.0-10.0)
[2021-06-11 12:31] LABS: CALCIUM 9.2 mg/dL (8.5-10.1)
[2021-06-11 12:32] LABS: BLOOD UREA NITROGEN 64.2 mg/dL (7-18); MAGNESIUM 2.5 mg/dL (1.8-2.4)
[2021-06-11 12:35] LABS: CREATININE 4.7 mg/dL (0.55-1.3); PHOSPHOROUS 4.4 mg/dL (2.5-4.9)
[2021-06-11 12:36] LABS: BILIRUBIN,TOTAL 0.2 mg/dL (0.2-1)
[2021-06-11 12:37] LABS: TOT PROT 6.8 g/dl (6.4-8.2)
[2021-06-11 13:26] LABS: ANISOCYTOSIS 1+; MACROCYTOSIS 0; PLATELET ESTIMATE NORMAL
[2021-06-11] MEDS: INSULIN (NOVOLOG) ASPART 100 UNITS/ML 10ML VIAL SQ SCH ×2 (16:22→21:20)
[2021-06-11] MEDS ORDERED: INSULIN (NOVOLOG) ASPART 100 UNITS/ML 10ML VIAL SQ SCH (16:30)
[2021-06-11] MEDS: MONTELUKAST NA 10 MG TABLET PO SCH (21:10)
[2021-06-12] MEDS: HEPARIN NA (PORCINE) 5,000 UNITS/ML 1ML VIAL SQ SCH ×2 (05:52→13:49)
[2021-06-12] MEDS: methylPREDNISolone NA SUCC 40 MG/1 ML VIAL IVPUSH SCH (05:54)
[2021-06-12] MEDS: INSULIN (NOVOLOG) ASPART 100 UNITS/ML 10ML VIAL SQ SCH ×2 (06:03→11:56)
[2021-06-12] MEDS: ALBUTEROL SO4 2.5/IPRATROPIUM 0.5 INH SOL 3 ML VIAL.NEB. NEB SCH ×3 (08:50→16:38)
[2021-06-12] MEDS: TAMSULOSIN HCL 0.4 MG CAP PO SCH (10:07)
[2021-06-12] MEDS: amLODIPine BESYLATE 10 MG TABLET (FP) PO SCH (10:07)
[2021-06-12] MEDS: METOPROLOL TARTRATE 50 MG TABLET (FP) PO SCH (10:07)
[2021-06-12] MEDS: NICOTINE 21 MG/24 HOURS TOPICAL PATCH TD SCH (10:07)
[2021-06-12] MEDS: MULTIVITAMINS (DAILY MVI) TABLET (FP) PO SCH (10:07)
[2021-06-12] MEDS: SODIUM ZIRCONIUM CYCLOSILICATE (LOKELMA) 5 GM PACKET PO SCH (10:07)
[2021-06-12] MEDS: AZITHROMYCIN IVPB 500 MG/250 ML BAG IVPB SCH (10:08)
[2021-06-12] MEDS ORDERED: BUDESONIDE/FORMETEROL FUMARATE 80/4.5 mcg INHALER IH SCH (11:45)
[2021-06-12 12:41] VITALS: BMI 20.7
[2021-06-12] MEDS ORDERED: predniSONE 20 MG TABLET (UD) PO SCH (13:00)
[2021-06-12 14:28] VITALS: BP 129/69; PULSE 81; TEMP 98.4
[2021-06-12] MEDS ORDERED: SODIUM BICARBONATE 650 MG TABLET PO ONE (16:36)
== END 2021-06-12 18:08 | disposition home or self-care (01) | DRG 191 ==
LOC: JER 22:54 → JERBED 06-10 03:24 → J6S 06-10 08:04
PROVIDERS: ADMIT Internal Medicine; ATTEND Internal Medicine
DX: J44.1 Chronic obstructive pulmonary disease with (acute) exacerbation (principal); N18.5 Chronic kidney disease, stage 5; J98.11 Atelectasis; I12.9 Hypertensive chronic kidney disease with stage 1 through stage 4 chronic kidney disease, or unspecified chronic kidney disease; D72.829 Elevated white blood cell count, unspecified; N40.0 Benign prostatic hyperplasia without lower urinary tract symptoms; F17.210 Nicotine dependence, cigarettes, uncomplicated
CPT/HCPCS: 36415; 71045-TC-FY; 71250-TC; 80048; 80053; 81003; 82803; 82962; 83036; 83735; 83880; 84100; 84484; 85025; 85027; 85379; 85610; 85730; 93005; 93010; 94010; 94640; 94761; 99285-25; C9803; J1644; U0003; U0005

== ENCOUNTER 2022-08-08 04:16 | Day surgery (SDC) | payer OTHER ==
[2022-08-06 17:02] VITALS: BMI 18.8
[~2022-08-08 04:16] MED LIST changes: +HEPARIN NA (PORCINE) 5,000 UNITS/ML 1ML VIAL SQ ONE; +LIDOCAINE HCL 1%, 10 MG/ML (20ML VIAL) NR ONE; -LIDOCAINE HCL 1%, 10 MG/ML (50 mL VIAL) INF ONE
[2022-08-08] MEDS ORDERED: HEPARIN NA (PORCINE) 5,000 UNITS/ML 1ML VIAL ONE ×2 (12:53→13:50)
[2022-08-08] MEDS ORDERED: PROPOFOL 20 ML ONE (13:09)
[2022-08-08] MEDS ORDERED: MIDAZOLAM HCL 2 MG/2 ML SINGLE DOSE VIAL ONE (13:09)
[2022-08-08] MEDS ORDERED: oxyCODONE HCL 5 MG TABLET PO PRN (13:11)
[2022-08-08] MEDS ORDERED: ONDANSETRON 4 MG/2 ML VIAL IVPUSH PRN (13:11)
[2022-08-08] MEDS ORDERED: SODIUM CHLORIDE 1,000 ML IV SCH (13:15)
[2022-08-08] MEDS ORDERED: ceFAZolin SODIUM 1 GM VIAL IVPB ONE (13:42)
[2022-08-08] MEDS ORDERED: ceFAZolin SODIUM 1 GM VIAL ONE (13:42)
[2022-08-08] MEDS ORDERED: LIDOCAINE HCL 1%, 10 MG/ML (20ML VIAL) NR ONE (13:48)
[2022-08-08] MEDS ORDERED: HEPARIN NA (PORCINE) 5,000 UNITS/ML 1ML VIAL SQ ONE (13:51)
[2022-08-08] MEDS ORDERED: PROTAMINE SULFATE 50 MG/5 ML VIAL ONE (14:12)
[2022-08-08 19:45] VITALS: RESP 20; TEMP 97.8
[2022-08-08 19:48] VITALS: BP 132/72; PULSE 65
== END 2022-08-08 17:14 | disposition home or self-care (01) ==
LOC: JASU-SURG 04:16
PROVIDERS: ATTEND Surgery Vascular Surgery
PROC: 057C3ZZ Dilation of Left Basilic Vein, Percutaneous Approach (ICD-10-PCS; principal; 2022-08-08 13:30)
DX: I12.0 Hypertensive chronic kidney disease with stage 5 chronic kidney disease or end stage renal disease (principal); N18.6 End stage renal disease
CPT/HCPCS: 76000-TC-FY; 94760; J1644

== ENCOUNTER 2022-09-16 21:46 | Emergency (ER) | payer OTHER ==
[2022-09-16 21:57] VITALS: BP 116/82; PULSE 54; RESP 18; TEMP 97.1; BMI 25.8
[2022-09-16] MEDS ORDERED: DIPHTH,PERTUSS(ACELL),TET 0.5 ML DISP.SYRIN IM ONE ×2 (22:17→22:22)
[2022-09-16] MEDS ORDERED: KETOROLAC TROMETHAMINE 15 MG/ML VIAL IVPUSH ONE (23:48)
[2022-09-16] MEDS ORDERED: KETOROLAC TROMETHAMINE 15 MG/ML VIAL ONE (23:50)
[2022-09-16] MEDS ORDERED: KETOROLAC TROMETHAMINE 30 MG/1 ML VIAL IM ONE (23:53)
[2022-09-16] MEDS ORDERED: BACITRACIN ZINC 15 GM TUBE TOPICAL OINTMENT TP ONE (23:58)
[2022-09-16] MEDS ORDERED: BACITRACIN 0.9 GM PACKET ONE (23:58)
[2022-09-17] MEDS ORDERED: BACITRACIN 0.9 GM PACKET ONE (00:03)
== END 2022-09-17 00:08 | disposition home or self-care (01) ==
LOC: JER 21:46
PROC: 3E0233Z Introduction of Anti-inflammatory into Muscle, Percutaneous Approach (ICD-10-PCS; principal; 2022-09-16)
PROC: 3E0234Z Introduction of Serum, Toxoid and Vaccine into Muscle, Percutaneous Approach (ICD-10-PCS; 2022-09-16)
DX: S00.81XA Abrasion of other part of head, initial encounter (principal); R51.9 Headache, unspecified; M54.2 Cervicalgia; M54.6 Pain in thoracic spine; S80.211A Abrasion, right knee, initial encounter; S80.212A Abrasion, left knee, initial encounter; W18.30XA Fall on same level, unspecified, initial encounter; Y93.01 Activity, walking, marching and hiking; Y92.007 Garden or yard of unspecified non-institutional (private) residence as the place of occurrence of the external cause
CPT/HCPCS: 70450-TC; 70486-TC; 72125-TC; 90471; 90715; 96372; 99284-25

== ENCOUNTER 2022-11-20 19:10 | Emergency (ER) | payer OTHER ==
[2022-11-20 19:16] VITALS: BP 108/65; PULSE 74; RESP 18; TEMP 98.2; BMI 19.3
[2022-11-20] MEDS ORDERED: LIDOCAINE 5% TOPICAL PATCH TP ONE ×2 (21:01→23:46)
[2022-11-20] MEDS ORDERED: METHOCARBAMOL 500 MG TABLET PO ONE (21:01)
[2022-11-20] MEDS ORDERED: METHOCARBAMOL 500 MG TABLET ONE (21:06)
[2022-11-20] MEDS ORDERED: LIDOCAINE 5% TOPICAL PATCH ONE ×2 (21:06→23:58)
[2022-11-20] MEDS ORDERED: ACETAMINOPHEN 500 MG TABLET (FP) PO ONE (21:23)
[2022-11-20] MEDS ORDERED: ACETAMINOPHEN 325 MG TABLET (FP) ONE (21:31)
[2022-11-20] MEDS ORDERED: LIDOCAINE PATCH REMOVAL MC ONE (22:00)
[2022-11-20] MEDS ORDERED: diazePAM 5 MG TABLET PO ONE (23:46)
[2022-11-20] MEDS ORDERED: diazePAM 5 MG TABLET ONE (23:57)
[2022-11-21] MEDS ORDERED: LIDOCAINE PATCH REMOVAL MC ONE ×2 (09:00→11:00)
== END 2022-11-21 00:12 | disposition home or self-care (01) ==
LOC: JER 19:10
DX: M54.50 Low back pain, unspecified (principal); M54.2 Cervicalgia
CPT/HCPCS: 99283-25

== ENCOUNTER 2023-06-22 14:32 | Inpatient (IN) | payer OTHER ==
[2023-06-22] MEDS: ALBUTEROL SO4 2.5/IPRATROPIUM 0.5 INH SOL 3 ML VIAL.NEB. NEB SCH ×3 (15:22→20:40)
[2023-06-22] MEDS ORDERED: methylPREDNISolone NA SUCC 125 MG/2 ML VIAL ONE (15:23)
[2023-06-22] MEDS: methylPREDNISolone NA SUCC 125 MG/2 ML VIAL IVPUSH ONE (15:27)
[2023-06-22 15:30] LABS: VENOUS BASE EXCESS -6.4 mmol/L (-2-2); VENOUS O2 SATURATION 46.4 % (70-80); VENOUS PCO2 54.4 mmHg (38-52); VENOUS PH 7.222 (7.310-7.410)
[2023-06-22 15:31] LABS: BASO % 0.3 % (0-2.0); EOS % 6.4 % (0-4.5); HEMATOCRIT 38.2 % (35.4-49); HEMOGLOBIN 12.4 GM/dL (11.7-16.9); LYMPH % 9.8 % (8-40); MCH 29.6 pg (25.7-33.7); MCHC 32.5 g/dl (32.0-35.9); MEAN CELL VOLUME 90.9 fl (80-96); MEAN PLT VOLUME 6.7 fl (7.5-11.1); MONO % 10.4 % (3.8-10.2); NEUT % 73.1 % (42.8-82.8); PLATELET COUNT 346 10^3/uL (134-434); RBC 4.21 M/mm3 (4.00-5.60); RDW 17.3 % (11.9-15.9); WHITE BLOOD COUNT 11.9 K/mm3 (4.0-10.0)
[2023-06-22 15:53] LABS: CHLORIDE 108 mmol/L (98-107); POTASSIUM 4.9 mmol/L (3.5-5.1); SODIUM 142 mmol/L (136-145)
[2023-06-22 15:56] LABS: ALBUMIN 3.2 g/dl (3.4-5.0); ANION GAP 7 mmol/L (4-13); CO2 27 mmol/L (21-32); GLUCOSE,RANDOM 146 mg/dL (74-106); MAGNESIUM 2.3 mg/dL (1.8-2.4)
[2023-06-22] MEDS ORDERED: CEFTRIAXONE 1 GM/50 ML BAG ONE (15:56)
[2023-06-22 15:57] LABS: BLOOD UREA NITROGEN 56.2 mg/dL (7-18)
[2023-06-22 15:59] LABS: SGOT/AST 10 U/L (15-37); SGPT/ALT 16 U/L (13-61)
[2023-06-22 16:01] LABS: BILIRUBIN,TOTAL 0.3 mg/dL (0.2-1); TOT PROT 7.7 g/dl (6.4-8.2)
[2023-06-22 16:02] LABS: ALK PHOS 113 U/L (45-117)
[2023-06-22] MEDS: CEFTRIAXONE 1,000 MG in DEXTROSE 5%-WATER - 50 ML IVPB ONE (16:07)
[2023-06-22] MEDS ORDERED: methylPREDNISolone NA SUCC 40 MG/1 ML VIAL ONE (18:09)
[2023-06-22] MEDS: methylPREDNISolone NA SUCC 40 MG/1 ML VIAL IVPUSH SCH (18:11)
[2023-06-22] MEDS ORDERED: ALBUTEROL SO4 2.5/IPRATROPIUM 0.5 INH SOL 3 ML VIAL.NEB. NEB ONE (20:38)
[2023-06-22] MEDS ORDERED: MONTELUKAST NA 10 MG TABLET ONE (22:19)
[2023-06-22] MEDS ORDERED: TAMSULOSIN HCL 0.4 MG CAP ONE (22:19)
[2023-06-22] MEDS: TAMSULOSIN HCL 0.4 MG CAP PO SCH (22:26)
[2023-06-22] MEDS: MONTELUKAST NA 10 MG TABLET PO SCH (22:26)
[2023-06-23] MEDS ORDERED: methylPREDNISolone NA SUCC 40 MG/1 ML VIAL ONE (02:08)
[2023-06-23 04:34] VITALS: BMI 19.3
[2023-06-23] MEDS: amLODIPine BESYLATE 5 MG TABLET (FP) PO SCH (09:15)
[2023-06-23] MEDS: FUROSEMIDE 20 MG TABLET (FP) PO SCH (09:15)
[2023-06-23] MEDS: CEFTRIAXONE 1 GM in DEXTROSE 5%-WATER - 50 ML IVPB SCH (09:15)
[2023-06-23] MEDS: HEPARIN NA (PORCINE) 5,000 UNITS/ML 1ML VIAL SQ SCH (09:15)
[2023-06-23] MEDS ORDERED: SODIUM CHLORIDE 250 ML IV PRN (12:51)
[2023-06-24] MEDS: AZITHROMYCIN 250 MG TABLET PO SCH (14:38)
[2023-06-24] MEDS: NICOTINE 14 MG/24 HOURS TOPICAL PATCH TD SCH (17:27)
[2023-06-25] MEDS: AMINO ACIDS/PROTEIN HYDROLYS 30 ML LIQUID.PKT PO SCH (07:57)
[2023-06-25 08:47] LABS: HEMATOCRIT 35.2 % (35.4-49); HEMOGLOBIN 11.3 GM/dL (11.7-16.9); MCH 29.4 pg (25.7-33.7); MCHC 32.1 g/dl (32.0-35.9); MEAN CELL VOLUME 91.5 fl (80-96); MEAN PLT VOLUME 7.3 fl (7.5-11.1); PLATELET COUNT 292 10^3/uL (134-434); RBC 3.85 M/mm3 (4.00-5.60); RDW 16.7 % (11.9-15.9)
[2023-06-25 09:15] LABS: CALCIUM 9.1 mg/dL (8.5-10.1)
[2023-06-25 09:16] LABS: BLOOD UREA NITROGEN 55.2 mg/dL (7-18); MAGNESIUM 1.9 mg/dL (1.8-2.4)
[2023-06-25 09:18] LABS: PHOSPHOROUS 4.6 mg/dL (2.5-4.9)
[2023-06-25 09:19] LABS: CREATININE 5.7 mg/dL (0.55-1.3)
[2023-06-25 09:20] LABS: BILIRUBIN,TOTAL 0.3 mg/dL (0.2-1)
[2023-06-25 09:23] LABS: TOT PROT 6.5 g/dl (6.4-8.2)
[2023-06-26 07:54] LABS: BASO % 0.1 % (0-2.0); HEMOGLOBIN 10.6 GM/dL (11.7-16.9); LYMPH % 5.2 % (8-40); MCH 29.5 pg (25.7-33.7); MCHC 32.1 g/dl (32.0-35.9); MEAN CELL VOLUME 91.9 fl (80-96); MEAN PLT VOLUME 7.4 fl (7.5-11.1); NEUT % 89.7 % (42.8-82.8); PLATELET COUNT 272 10^3/uL (134-434); RBC 3.59 M/mm3 (4.00-5.60); RDW 15.8 % (11.9-15.9); WHITE BLOOD COUNT 13.3 K/mm3 (4.0-10.0)
[2023-06-26 08:00] LABS: POTASSIUM 4.3 mmol/L (3.5-5.1)
[2023-06-26 08:09] LABS: CALCIUM 9.1 mg/dL (8.5-10.1)
[2023-06-26 08:11] LABS: ALBUMIN 2.6 g/dl (3.4-5.0)
[2023-06-26 08:13] LABS: CREATININE 6.8 mg/dL (0.55-1.3)
[2023-06-26 08:14] LABS: BILIRUBIN,TOTAL 0.3 mg/dL (0.2-1)
[2023-06-26 08:19] LABS: BLOOD UREA NITROGEN 91.3 mg/dL (7-18)
[2023-06-26] MEDS: FUROSEMIDE 20 MG TABLET (FP) PO SCH (09:03)
[2023-06-26] MEDS ORDERED: SODIUM CHLORIDE 250 ML IV PRN (12:50)
[2023-06-27] MEDS: EPOETIN ALFA-EPBX 4,000 UNIT/ML VIAL IVPUSH ONE (10:25)
[2023-06-27 10:46] LABS: HEMATOCRIT 32.6 % (35.4-49); HEMOGLOBIN 10.8 GM/dL (11.7-16.9); MCH 30.1 pg (25.7-33.7); MCHC 33.2 g/dl (32.0-35.9); MEAN CELL VOLUME 90.6 fl (80-96); MEAN PLT VOLUME 7.3 fl (7.5-11.1); PLATELET COUNT 283 10^3/uL (134-434); RDW 16.1 % (11.9-15.9); WHITE BLOOD COUNT 11.3 K/mm3 (4.0-10.0)
[2023-06-27 11:07] LABS: CHLORIDE 96 mmol/L (98-107); SODIUM 133 mmol/L (136-145)
[2023-06-27 11:12] LABS: GLUCOSE,RANDOM 280 mg/dL (74-106)
[2023-06-27 11:13] LABS: CALCIUM 8.3 mg/dL (8.5-10.1)
[2023-06-27 11:13] LABS: MAGNESIUM 1.8 mg/dL (1.8-2.4)
[2023-06-27 11:14] LABS: ALBUMIN 2.7 g/dl (3.4-5.0); ANION GAP 13 mmol/L (4-13); CO2 24 mmol/L (21-32)
[2023-06-27 11:16] LABS: SGPT/ALT 61 U/L (13-61)
[2023-06-27 11:17] LABS: BILIRUBIN,TOTAL 0.3 mg/dL (0.2-1); SGOT/AST 31 U/L (15-37); TOT PROT 6.1 g/dl (6.4-8.2)
[2023-06-27 11:17] LABS: PHOSPHOROUS 2.9 mg/dL (2.5-4.9)
[2023-06-27 11:18] LABS: ALK PHOS 90 U/L (45-117); BLOOD UREA NITROGEN 117.6 mg/dL (7-18); CREATININE 7.8 mg/dL (0.55-1.3)
[2023-06-27] MEDS: ALBUTEROL SO4 2.5/IPRATROPIUM 0.5 INH SOL 3 ML VIAL.NEB. NEB PRN (19:56)
[2023-06-28 08:46] LABS: HEMATOCRIT 35.3 % (35.4-49); HEMOGLOBIN 11.5 GM/dL (11.7-16.9); LYMPH % 6.4 % (8-40); MCH 29.6 pg (25.7-33.7); MCHC 32.6 g/dl (32.0-35.9); MEAN CELL VOLUME 90.7 fl (80-96); MEAN PLT VOLUME 7.6 fl (7.5-11.1); MONO % 7.3 % (3.8-10.2); NEUT % 86.3 % (42.8-82.8); PLATELET COUNT 303 10^3/uL (134-434); RBC 3.89 M/mm3 (4.00-5.60); RDW 16.1 % (11.9-15.9); WHITE BLOOD COUNT 12.3 K/mm3 (4.0-10.0)
[2023-06-28 08:49] LABS: POTASSIUM 3.8 mmol/L (3.5-5.1)
[2023-06-28 09:04] LABS: CALCIUM 8.7 mg/dL (8.5-10.1)
[2023-06-28 09:05] LABS: ALBUMIN 2.9 g/dl (3.4-5.0)
[2023-06-28 09:08] LABS: CREATININE 4.9 mg/dL (0.55-1.3)
[2023-06-28 09:09] LABS: BILIRUBIN,TOTAL 0.4 mg/dL (0.2-1)
[2023-06-28 09:10] LABS: TOT PROT 6.4 g/dl (6.4-8.2)
[2023-06-28] MEDS ORDERED: BENZOCAINE/MENTH/CETYLPYRD CL 1 EACH LOZENGE MM PRN (09:11)
[2023-06-28 09:15] LABS: BLOOD UREA NITROGEN 69.5 mg/dL (7-18)
[2023-06-28] MEDS: LIDOCAINE 5% TOPICAL PATCH TP SCH (10:21)
[2023-06-28] MEDS: methylPREDNISolone NA SUCC 40 MG/1 ML VIAL IVPUSH SCH (10:21)
[2023-06-28] MEDS: LIDOCAINE PATCH REMOVAL MC SCH (21:42)
[2023-06-29 06:04] VITALS: RESP 18
[2023-06-29] MEDS ORDERED: SODIUM CHLORIDE 250 ML IV PRN (09:22)
[2023-06-29 09:29] LABS: HEMATOCRIT 32.3 % (35.4-49); HEMOGLOBIN 10.5 GM/dL (11.7-16.9); MCH 29.7 pg (25.7-33.7); MCHC 32.7 g/dl (32.0-35.9); MEAN CELL VOLUME 90.9 fl (80-96); MEAN PLT VOLUME 7.5 fl (7.5-11.1); PLATELET COUNT 287 10^3/uL (134-434); RBC 3.55 M/mm3 (4.00-5.60); RDW 16.2 % (11.9-15.9); WHITE BLOOD COUNT 10.9 K/mm3 (4.0-10.0)
[2023-06-29 09:51] LABS: CHLORIDE 99 mmol/L (98-107); POTASSIUM 3.1 mmol/L (3.5-5.1); SODIUM 136 mmol/L (136-145)
[2023-06-29 09:52] LABS: CALCIUM 8.3 mg/dL (8.5-10.1)
[2023-06-29 09:53] LABS: ALBUMIN 2.3 g/dl (3.4-5.0); ANION GAP 11 mmol/L (4-13); CO2 27 mmol/L (21-32); GLUCOSE,RANDOM 177 mg/dL (74-106)
[2023-06-29 09:56] LABS: CREATININE 6.1 mg/dL (0.55-1.3); SGOT/AST 19 U/L (15-37); SGPT/ALT 57 U/L (13-61)
[2023-06-29 09:58] LABS: BILIRUBIN,TOTAL 0.3 mg/dL (0.2-1); TOT PROT 5.2 g/dl (6.4-8.2)
[2023-06-29 09:59] LABS: ALK PHOS 72 U/L (45-117)
[2023-06-29 10:00] LABS: BLOOD UREA NITROGEN 105.2 mg/dL (7-18)
[2023-06-29 12:56] VITALS: BP 120/59; PULSE 66; TEMP 97.9
[2023-06-29] MEDS: predniSONE 20 MG TABLET (UD) PO SCH (12:56)
[2023-06-29] MEDS: methylPREDNISolone NA SUCC 40 MG/1 ML VIAL IVPUSH SCH (13:03)
[2023-06-29] MEDS: LIDOCAINE 4% PATCH TP SCH (13:22)
== END 2023-06-29 16:19 | disposition home or self-care (01) | DRG 190 ==
LOC: JER 14:32 → JERBED 15:41 → J6S 06-23 03:22
PROVIDERS: ADMIT Internal Medicine; ATTEND Internal Medicine
PROC: 5A1D70Z Performance of Urinary Filtration, Intermittent, Less than 6 Hours Per Day (ICD-10-PCS; principal; 2023-06-29)
DX: J43.9 Emphysema, unspecified (principal); N18.6 End stage renal disease; I12.0 Hypertensive chronic kidney disease with stage 5 chronic kidney disease or end stage renal disease; E44.0 Moderate protein-calorie malnutrition; Z68.1 Body mass index [BMI] 19.9 or less, adult; F17.210 Nicotine dependence, cigarettes, uncomplicated; Z99.2 Dependence on renal dialysis; N40.0 Benign prostatic hyperplasia without lower urinary tract symptoms
CPT/HCPCS: 0241U-QW; 36415; 71045-TC-FY; 80053; 82803; 83735; 84100; 85025; 85027; 86704; 86803; 87340; 87517; 93005; 93010; 94010; 94640; 94761; 99285-25; J1644; Q5106

== ENCOUNTER 2023-07-12 09:33 | Inpatient (IN) | payer OTHER ==
[2023-07-12] MEDS ORDERED: ALBUTEROL SO4 2.5/IPRATROPIUM 0.5 INH SOL 3 ML VIAL.NEB. NEB ONE ×2 (10:52→14:14)
[2023-07-12] MEDS: ALBUTEROL SO4 2.5/IPRATROPIUM 0.5 INH SOL 3 ML VIAL.NEB. NEB SCH ×2 (10:59→16:13)
[2023-07-12 12:19] LABS: BASO % 0.2 % (0-2.0); EOS % 4.7 % (0-4.5); HEMATOCRIT 32.3 % (35.4-49); HEMOGLOBIN 10.7 GM/dL (11.7-16.9); LYMPH % 14.5 % (8-40); MCH 30.4 pg (25.7-33.7); MEAN CELL VOLUME 92.2 fl (80-96); MEAN PLT VOLUME 6.8 fl (7.5-11.1); MONO % 11.9 % (3.8-10.2); NEUT % 68.7 % (42.8-82.8); PLATELET COUNT 226 10^3/uL (134-434); RDW 15.9 % (11.9-15.9); WHITE BLOOD COUNT 8.9 K/mm3 (4.0-10.0)
[2023-07-12] MEDS ORDERED: methylPREDNISolone NA SUCC 125 MG/2 ML VIAL ONE (12:29)
[2023-07-12] MEDS ORDERED: AZITHROMYCIN IVPB 500 MG/250 ML BAG IVPB ONE (12:29)
[2023-07-12] MEDS: methylPREDNISolone NA SUCC 125 MG/2 ML VIAL IVPB ONE (12:36)
[2023-07-12 12:39] LABS: POTASSIUM 4.6 mmol/L (3.5-5.1)
[2023-07-12 12:42] LABS: CALCIUM 9.3 mg/dL (8.5-10.1)
[2023-07-12] MEDS: AZITHROMYCIN IVPB 500 MG in DEXTROSE 5%-WATER - 250 ML IVPB ONE (12:42)
[2023-07-12] MEDS ORDERED: guaiFENesin/CODEINE 10 ML UNIT-DOSE CUPS ONE (12:42)
[2023-07-12] MEDS: guaiFENesin 200 MG/10 ML 10 ML UNIT-DOSE CUPS PO ONE (12:42)
[2023-07-12 12:46] LABS: CREATININE 3.8 mg/dL (0.55-1.3); TOT PROT 6.8 g/dl (6.4-8.2)
[2023-07-12 12:47] LABS: BILIRUBIN,TOTAL 0.4 mg/dL (0.2-1)
[2023-07-12 12:53] LABS: BLOOD UREA NITROGEN 25.1 mg/dL (7-18)
[2023-07-12] MEDS: ALBUTEROL SULFATE 0.021% (0.63 MG/3 ML) VIAL.NEB NEB ONE (14:21)
[2023-07-12] MEDS ORDERED: ALBUTEROL SO4 0.083% IH SOL 2.5 MG/3 ML VIAL.NEB. NEB ONE (15:21)
[2023-07-12] MEDS: ALBUTEROL SO4 0.083% IH SOL 2.5 MG/3 ML VIAL.NEB. NEB PRN (15:26)
[2023-07-12 16:29] LABS: ARTERIAL BLD GAS O2 SATURATION 95.3 % (95-98); ARTERIAL BLOOD GAS PO2 78.6 mmHg (80-100); ARTERIAL BLOOD GAS pH 7.363 (7.350-7.450)
[2023-07-12 16:33] LABS: ALLENS TEST POSITIVE; VENT RATE 16
[2023-07-12] MEDS: LORazepam 2 MG/ML SDV VIAL IVPUSH ONE (16:33)
[2023-07-12 16:36] LABS: VENT MODE IPAP 12
[2023-07-12] MEDS: methylPREDNISolone NA SUCC 40 MG/1 ML VIAL IVPUSH SCH (21:07)
[2023-07-12 21:18] VITALS: BMI 21.4
[2023-07-12] MEDS: MONTELUKAST NA 10 MG TABLET PO SCH (21:30)
[2023-07-12] MEDS: TAMSULOSIN HCL 0.4 MG CAP PO SCH (21:30)
[2023-07-13] MEDS: HEPARIN NA (PORCINE) 5,000 UNITS/ML 1ML VIAL SQ SCH (06:24)
[2023-07-13 06:54] LABS: HEMATOCRIT 31.7 % (35.4-49); HEMOGLOBIN 10.3 GM/dL (11.7-16.9); MCHC 32.3 g/dl (32.0-35.9); MEAN CELL VOLUME 92.8 fl (80-96); MEAN PLT VOLUME 7.1 fl (7.5-11.1); PLATELET COUNT 235 10^3/uL (134-434); RBC 3.42 M/mm3 (4.00-5.60); RDW 15.8 % (11.9-15.9); WHITE BLOOD COUNT 7.7 K/mm3 (4.0-10.0)
[2023-07-13 07:42] LABS: CALCIUM 8.9 mg/dL (8.5-10.1)
[2023-07-13 07:43] LABS: ALBUMIN 2.9 g/dl (3.4-5.0); BLOOD UREA NITROGEN 32.3 mg/dL (7-18); MAGNESIUM 1.8 mg/dL (1.8-2.4)
[2023-07-13 07:46] LABS: CREATININE 4.9 mg/dL (0.55-1.3); PHOSPHOROUS 3.8 mg/dL (2.5-4.9)
[2023-07-13 07:48] LABS: BILIRUBIN,TOTAL 0.3 mg/dL (0.2-1); TOT PROT 6.6 g/dl (6.4-8.2)
[2023-07-13] MEDS ORDERED: SODIUM CHLORIDE 250 ML IV PRN (08:48)
[2023-07-13] MEDS: EPOETIN ALFA-EPBX 4,000 UNIT/ML VIAL SQ ONE (09:39)
[2023-07-13] MEDS: ALBUTEROL SO4 0.083% IH SOL 2.5 MG/3 ML VIAL.NEB. NEB PRN (12:06)
[2023-07-13] MEDS: amLODIPine BESYLATE 5 MG TABLET (FP) PO SCH (12:09)
[2023-07-13] MEDS: AZITHROMYCIN IVPB 500 MG/250 ML BAG IVPB SCH (12:09)
[2023-07-13] MEDS: BUDESONIDE/FORMETEROL FUMARATE 160/4.5 mcg INHALER IH SCH (12:10)
[2023-07-13] MEDS: FUROSEMIDE 20 MG TABLET (FP) PO SCH (12:13)
[2023-07-13] MEDS: TIOTROPIUM BROMIDE 2.5 MCG (SPIRIVA) RESPIMAT INHALER IH SCH (13:18)
[2023-07-13] MEDS: guaiFENesin 600 MG TABLET.ER (FP) PO SCH (22:28)
[2023-07-14] MEDS: methylPREDNISolone NA SUCC 40 MG/1 ML VIAL IVPUSH SCH (10:15)
[2023-07-15 03:59] VITALS: RESP 18
[2023-07-15] MEDS: predniSONE 20 MG TABLET (UD) PO SCH (10:21)
[2023-07-15] MEDS: AZITHROMYCIN 250 MG TABLET PO SCH (15:24)
[2023-07-16] MEDS ORDERED: ALBUTEROL SO4 0.083% IH SOL 2.5 MG/3 ML VIAL.NEB. NEB PRN (00:22)
[2023-07-16] MEDS: HEPARIN NA (PORCINE) 5,000 UNITS/ML 1ML VIAL SQ SCH (06:32)
[2023-07-16 08:58] LABS: BASO % 0.2 % (0-2.0); EOS % 0.3 % (0-4.5); HEMATOCRIT 29.3 % (35.4-49); HEMOGLOBIN 9.4 GM/dL (11.7-16.9); LYMPH % 12.6 % (8-40); MCH 29.6 pg (25.7-33.7); MEAN CELL VOLUME 92.5 fl (80-96); MEAN PLT VOLUME 7.5 fl (7.5-11.1); MONO % 10.1 % (3.8-10.2); NEUT % 76.8 % (42.8-82.8); PLATELET COUNT 287 10^3/uL (134-434); RBC 3.17 M/mm3 (4.00-5.60); RDW 16.4 % (11.9-15.9)
[2023-07-16] MEDS: TAMSULOSIN HCL 0.4 MG CAP PO SCH (09:27)
[2023-07-16 09:43] LABS: POTASSIUM 4.4 mmol/L (3.5-5.1)
[2023-07-16 09:46] LABS: ALBUMIN 2.7 g/dl (3.4-5.0)
[2023-07-16 09:47] LABS: CALCIUM 8.5 mg/dL (8.5-10.1)
[2023-07-16 09:49] LABS: CREATININE 6.8 mg/dL (0.55-1.3)
[2023-07-16 09:51] LABS: BILIRUBIN,TOTAL 0.4 mg/dL (0.2-1); TOT PROT 5.5 g/dl (6.4-8.2)
[2023-07-16 09:53] LABS: BLOOD UREA NITROGEN 77.4 mg/dL (7-18)
[2023-07-16] MEDS ORDERED: SODIUM CHLORIDE 250 ML IV PRN (10:17)
[2023-07-16] MEDS: EPOETIN ALFA-EPBX 10,000 UNIT/ML VIAL SQ ONE (10:55)
[2023-07-16] MEDS: ALBUTEROL SO4 0.083% IH SOL 2.5 MG/3 ML VIAL.NEB. NEB SCH (13:05)
[2023-07-16] MEDS: FUROSEMIDE 20 MG TABLET (FP) PO SCH (14:24)
[2023-07-16] MEDS: predniSONE 20 MG TABLET (UD) PO SCH (14:24)
[2023-07-16] MEDS: amLODIPine BESYLATE 5 MG TABLET (FP) PO SCH (14:27)
[2023-07-16] MEDS: guaiFENesin 600 MG TABLET.ER (FP) PO SCH (14:27)
[2023-07-16] MEDS: BUDESONIDE/FORMETEROL FUMARATE 160/4.5 mcg INHALER IH SCH (14:28)
[2023-07-16] MEDS: TIOTROPIUM BROMIDE 2.5 MCG (SPIRIVA) RESPIMAT INHALER IH SCH (14:28)
[2023-07-16] MEDS: MONTELUKAST NA 10 MG TABLET PO SCH (21:45)
[2023-07-17 09:03] LABS: HEMATOCRIT 29.6 % (35.4-49); HEMOGLOBIN 9.6 GM/dL (11.7-16.9); MCH 30.1 pg (25.7-33.7); MCHC 32.4 g/dl (32.0-35.9); MEAN CELL VOLUME 92.8 fl (80-96); MEAN PLT VOLUME 7.4 fl (7.5-11.1); PLATELET COUNT 294 10^3/uL (134-434); RBC 3.19 M/mm3 (4.00-5.60); RDW 16.5 % (11.9-15.9); WHITE BLOOD COUNT 9.5 K/mm3 (4.0-10.0)
[2023-07-17] MEDS: guaiFENesin 600 MG TABLET.ER (FP) PO SCH (09:19)
[2023-07-17 14:54] VITALS: BP 147/71; PULSE 79; TEMP 98
== END 2023-07-17 14:56 | DRG 190 ==
LOC: JER 09:33 → JERBED 14:21 → J4W 17:29 → J6S 07-15 18:00
PROVIDERS: ADMIT Internal Medicine; ATTEND Internal Medicine
PROC: 5A1D70Z Performance of Urinary Filtration, Intermittent, Less than 6 Hours Per Day (ICD-10-PCS; principal; 2023-07-16)
DX: J44.1 Chronic obstructive pulmonary disease with (acute) exacerbation (principal); J96.21 Acute and chronic respiratory failure with hypoxia; N18.6 End stage renal disease; I12.0 Hypertensive chronic kidney disease with stage 5 chronic kidney disease or end stage renal disease; N40.0 Benign prostatic hyperplasia without lower urinary tract symptoms; D64.9 Anemia, unspecified; F17.210 Nicotine dependence, cigarettes, uncomplicated; Z99.2 Dependence on renal dialysis
CPT/HCPCS: 0241U-QW; 36415; 36600; 71045-TC-FY; 71250-TC; 80053; 82803; 83735; 84100; 84484; 85025; 85027; 93005; 93010; 94640; 94660; 94761; 97116-GP; 97162-GP; 99285-25; J1644; Q5106

== ENCOUNTER 2023-08-13 16:53 | Observation (INO) | payer OTHER ==
[2023-08-13] MEDS ORDERED: ASPIRIN 325 MG TABLET PO ONE (17:49)
[2023-08-13] MEDS ORDERED: dilTIAZem HCL 125 MG/25 ML - 25 ML VIAL ONE ×2 (17:56→18:31)
[2023-08-13] MEDS ORDERED: dilTIAZem HCL 30 MG TABLET ONE (17:56)
[2023-08-13 18:03] LABS: BASO % 0.4 % (0-2.0); HEMATOCRIT 38.1 % (35.4-49); HEMOGLOBIN 12.6 GM/dL (11.7-16.9); LYMPH % 9.8 % (8-40); MCH 30.9 pg (25.7-33.7); MCHC 33.1 g/dl (32.0-35.9); MEAN CELL VOLUME 93.4 fl (80-96); MEAN PLT VOLUME 6.6 fl (7.5-11.1); MONO % 2.9 % (3.8-10.2); NEUT % 86.9 % (42.8-82.8); PLATELET COUNT 415 10^3/uL (134-434); RBC 4.08 M/mm3 (4.00-5.60); RDW 17.6 % (11.9-15.9); WHITE BLOOD COUNT 7.9 K/mm3 (4.0-10.0)
[2023-08-13] MEDS: dilTIAZem HCL 50 MG/10 ML - 10 ML VIAL IVPUSH ONE ×3 (18:04→18:37)
[2023-08-13] MEDS: dilTIAZem HCL 30 MG TABLET PO ONE (18:04)
[2023-08-13 18:16] LABS: INR 0.91 (0.83-1.09); PROTHROMBIN TIME (PATIENT) 10.3 SEC (9.7-13.0)
[2023-08-13 18:19] LABS: ACTIVATED PTT 31.4 SECONDS (25.2-36.5)
[2023-08-13 18:25] LABS: CHLORIDE 106 mmol/L (98-107); POTASSIUM 5.3 mmol/L (3.5-5.1); SODIUM 138 mmol/L (136-145)
[2023-08-13 18:27] LABS: CALCIUM 9.7 mg/dL (8.5-10.1)
[2023-08-13 18:28] LABS: ALBUMIN 3.7 g/dl (3.4-5.0); ANION GAP 6 mmol/L (4-13); BLOOD UREA NITROGEN 56.4 mg/dL (7-18); CO2 25 mmol/L (21-32); GLUCOSE,RANDOM 188 mg/dL (74-106); MAGNESIUM 2.2 mg/dL (1.8-2.4)
[2023-08-13 18:31] LABS: CREATININE 5.7 mg/dL (0.55-1.3); SGOT/AST 9 U/L (15-37); SGPT/ALT 14 U/L (13-61)
[2023-08-13 18:33] LABS: TOT PROT 7.4 g/dl (6.4-8.2)
[2023-08-13 18:34] LABS: ALK PHOS 137 U/L (45-117)
[2023-08-13 18:36] LABS: BILIRUBIN,TOTAL 0.3 mg/dL (0.2-1)
[2023-08-13] MEDS: ASPIRIN 325 MG ENTERIC COATED TABLET (FP) PO ONE (19:01)
[2023-08-13] MEDS ORDERED: APIXABAN 5 MG TABLET ONE (19:39)
[2023-08-13] MEDS ORDERED: SODIUM ZIRCONIUM CYCLOSILICATE (LOKELMA) 5 GM PACKET ONE (19:40)
[2023-08-13] MEDS ORDERED: DEXTROSE 50%-WATER 25 GM/50 ML DISP.SYRIN ONE (19:40)
[2023-08-13] MEDS: INSULIN REGULAR HUMAN 100 UNITS/ML *VIAL IVPUSH ONE (19:48)
[2023-08-13] MEDS: SODIUM ZIRCONIUM CYCLOSILICATE (LOKELMA) 5 GM PACKET PO ONE (19:48)
[2023-08-13] MEDS: APIXABAN 5 MG TABLET PO ONE (19:48)
[2023-08-13] MEDS: DEXTROSE 50%-WATER - 25 GM/50 ML VIAL IVPUSH ONE (19:48)
[2023-08-13] MEDS ORDERED: METOPROLOL TARTRATE 5 MG/5 ML VIAL IVPUSH PRN (21:53)
[2023-08-13] MEDS ORDERED: MONTELUKAST NA 10 MG TABLET ONE (22:43)
[2023-08-13] MEDS ORDERED: TAMSULOSIN HCL 0.4 MG CAP ONE (22:43)
[2023-08-13] MEDS: TAMSULOSIN HCL 0.4 MG CAP PO SCH (22:45)
[2023-08-13] MEDS: MONTELUKAST NA 10 MG TABLET PO SCH (22:45)
[2023-08-13] MEDS: APIXABAN 5 MG TABLET PO SCH (22:46)
[2023-08-13] MEDS: BUDESONIDE/FORMETEROL FUMARATE 160/4.5 mcg INHALER IH SCH (23:26)
[2023-08-14 01:41] VITALS: BMI 21.5
[2023-08-14 07:11] LABS: BASO % 0.4 % (0-2.0); EOS % 0.4 % (0-4.5); HEMATOCRIT 37.1 % (35.4-49); HEMOGLOBIN 12.1 GM/dL (11.7-16.9); LYMPH % 21.9 % (8-40); MCH 30.3 pg (25.7-33.7); MCHC 32.7 g/dl (32.0-35.9); MEAN CELL VOLUME 92.8 fl (80-96); MONO % 14.7 % (3.8-10.2); NEUT % 62.6 % (42.8-82.8); PLATELET COUNT 423 10^3/uL (134-434); WHITE BLOOD COUNT 8.1 K/mm3 (4.0-10.0)
[2023-08-14 09:01] LABS: PHOSPHOROUS 4.1 mg/dL (2.5-4.9)
[2023-08-14] MEDS: SODIUM CHLORIDE 1,000 ML IV STA (10:44)
[2023-08-14] MEDS: SODIUM ZIRCONIUM CYCLOSILICATE (LOKELMA) 5 GM PACKET PO ONE ×2 (10:45→10:48)
[2023-08-14] MEDS: FUROSEMIDE 20 MG TABLET (FP) PO SCH (10:47)
[2023-08-14] MEDS: metoPROLOL SUCCINATE 25 MG TAB.SR.24H (FP) PO ONE (11:32)
[2023-08-14 12:18] LABS: EPI CELLS 3 /uL (0-25.1); HYALINE CASTS 0 /uL (0-3.1); URINE APPEARANCE CLEAR; URINE BACTERIA 0 /uL (0-1359); URINE BILIRUBIN NEGATIVE (NEGATIVE); URINE COLOR YELLOW; URINE GLUCOSE (UA) NEGATIVE (NEGATIVE); URINE KETONE NEGATIVE (NEGATIVE); URINE LEUK ESTERASE NEGATIVE (NEGATIVE); URINE NITRITE NEGATIVE (NEGATIVE); URINE PROTEIN 2+ (NEGATIVE); URINE RBC 13 /uL (0-23.9); URINE UROBILINOGEN 0.2 mg/dL (0.2-1.0); URINE WBC 6 /uL (0-25.8)
[2023-08-14] MEDS ORDERED: SODIUM CHLORIDE 250 ML IV PRN (12:35)
[2023-08-14] MEDS: TIOTROPIUM BROMIDE 2.5 MCG (SPIRIVA) RESPIMAT INHALER IH SCH (17:25)
[2023-08-14 19:59] VITALS: RESP 18
[2023-08-15 08:08] LABS: HEMATOCRIT 34.6 % (35.4-49); HEMOGLOBIN 11.2 GM/dL (11.7-16.9); MCHC 32.3 g/dl (32.0-35.9); MEAN CELL VOLUME 92.8 fl (80-96); MEAN PLT VOLUME 6.8 fl (7.5-11.1); PLATELET COUNT 360 10^3/uL (134-434); RBC 3.72 M/mm3 (4.00-5.60); RDW 17.1 % (11.9-15.9); WHITE BLOOD COUNT 6.9 K/mm3 (4.0-10.0)
[2023-08-15 08:48] LABS: CALCIUM 8.3 mg/dL (8.5-10.1)
[2023-08-15 08:49] LABS: BLOOD UREA NITROGEN 41.7 mg/dL (7-18); MAGNESIUM 1.9 mg/dL (1.8-2.4)
[2023-08-15 08:50] LABS: ALBUMIN 2.7 g/dl (3.4-5.0)
[2023-08-15 08:51] LABS: PHOSPHOROUS 4.4 mg/dL (2.5-4.9)
[2023-08-15 08:52] LABS: BILIRUBIN,TOTAL 0.3 mg/dL (0.2-1); CREATININE 4.5 mg/dL (0.55-1.3)
[2023-08-15 08:57] LABS: POTASSIUM 3.6 mmol/L (3.5-5.1)
[2023-08-15 08:58] LABS: TOT PROT 5.2 g/dl (6.4-8.2)
[2023-08-15] MEDS ORDERED: PATIENT'S OWN MEDICATION (NON-FORMULARY) (Umeclidinium Bromide [Incruse Ellipta] 62.5 MCG IH SCH (10:00)
[2023-08-15] MEDS ORDERED: SODIUM CHLORIDE 250 ML IV PRN (14:40)
[2023-08-15] MEDS: METOPROLOL SUCCINATE 100 MG, METOPROLOL SUCCINATE 25 MG PO SCH (18:17)
[2023-08-15 18:20] VITALS: BP 137/68; PULSE 88; TEMP 98
== END 2023-08-15 18:57 | disposition home or self-care (01) ==
LOC: JER 16:53 → JERBED 17:50 → J4W 08-14 00:16
PROVIDERS: ADMIT Student in an Organized Health Care Education/Training Program; ATTEND Internal Medicine
PROC: 3E033GC Introduction of Other Therapeutic Substance into Peripheral Vein, Percutaneous Approach (ICD-10-PCS; principal; 2023-08-13)
PROC: 3E0337Z Introduction of Electrolytic and Water Balance Substance into Peripheral Vein, Percutaneous Approach (ICD-10-PCS; 2023-08-13)
PROC: 3E033VG Introduction of Insulin into Peripheral Vein, Percutaneous Approach (ICD-10-PCS; 2023-08-13)
DX: I48.91 Unspecified atrial fibrillation (principal); I10 Essential (primary) hypertension; J44.9 Chronic obstructive pulmonary disease, unspecified; N18.6 End stage renal disease; Z99.2 Dependence on renal dialysis; Z87.891 Personal history of nicotine dependence; Z99.81 Dependence on supplemental oxygen; N40.0 Benign prostatic hyperplasia without lower urinary tract symptoms
CPT/HCPCS: 0241U-QW; 36415; 71045-TC-FY; 80053; 80307; 81003; 83036; 83735; 84100; 84439; 84443; 85025; 85027; 85610; 85730; 87086; 87340; 93005; 93010; 93306-TC; 96374; 96375; 96376; 97116-GP; 97161-GP; 99291; G0378

== ENCOUNTER 2023-09-24 19:09 | Observation (INO) | payer OTHER ==
[2023-09-24 19:18] VITALS: BMI 22.1
[2023-09-24 22:30] LABS: BASO % 0.8 % (0-2.0); EOS % 4.6 % (0-4.5); HEMATOCRIT 40.8 % (35.4-49); HEMOGLOBIN 13.4 GM/dL (11.7-16.9); LYMPH % 22.2 % (8-40); MCH 29.8 pg (25.7-33.7); MEAN CELL VOLUME 90.4 fl (80-96); MEAN PLT VOLUME 7.1 fl (7.5-11.1); MONO % 13.1 % (3.8-10.2); NEUT % 59.3 % (42.8-82.8); PLATELET COUNT 256 10^3/uL (134-434); RBC 4.51 M/mm3 (4.00-5.60); RDW 17.7 % (11.9-15.9); WHITE BLOOD COUNT 6.3 K/mm3 (4.0-10.0)
[2023-09-24 22:56] LABS: POTASSIUM 4.2 mmol/L (3.5-5.1)
[2023-09-24 22:58] LABS: ALBUMIN 3.3 g/dl (3.4-5.0); CALCIUM 8.9 mg/dL (8.5-10.1); MAGNESIUM 2.1 mg/dL (1.8-2.4)
[2023-09-24 23:01] LABS: CREATININE 4.7 mg/dL (0.55-1.3)
[2023-09-24 23:03] LABS: BILIRUBIN,TOTAL 0.3 mg/dL (0.2-1); TOT PROT 6.6 g/dl (6.4-8.2)
[2023-09-25 07:48] LABS: HEMATOCRIT 37.6 % (35.4-49); HEMOGLOBIN 12.3 GM/dL (11.7-16.9); MCH 29.9 pg (25.7-33.7); MCHC 32.6 g/dl (32.0-35.9); MEAN CELL VOLUME 91.5 fl (80-96); MEAN PLT VOLUME 7.2 fl (7.5-11.1); PLATELET COUNT 230 10^3/uL (134-434); RBC 4.11 M/mm3 (4.00-5.60); RDW 17.2 % (11.9-15.9); WHITE BLOOD COUNT 6.1 K/mm3 (4.0-10.0)
[2023-09-25 08:06] LABS: POTASSIUM 4.5 mmol/L (3.5-5.1)
[2023-09-25] MEDS: TAMSULOSIN HCL 0.4 MG CAP PO SCH (08:13)
[2023-09-25] MEDS: FUROSEMIDE 20 MG TABLET (FP) PO SCH (08:13)
[2023-09-25] MEDS: APIXABAN 5 MG TABLET PO SCH (08:13)
[2023-09-25 08:17] LABS: BLOOD UREA NITROGEN 46.7 mg/dL (7-18); CALCIUM 8.6 mg/dL (8.5-10.1)
[2023-09-25 08:20] LABS: CREATININE 5.4 mg/dL (0.55-1.3); PHOSPHOROUS 5.1 mg/dL (2.5-4.9)
[2023-09-25 08:22] LABS: BILIRUBIN,TOTAL 0.6 mg/dL (0.2-1); TOT PROT 5.8 g/dl (6.4-8.2)
[2023-09-25] MEDS ORDERED: ALBUTEROL SO4 0.083% IH SOL 2.5 MG/3 ML VIAL.NEB. NEB PRN (10:00)
[2023-09-25] MEDS ORDERED: METOPROLOL SUCCINATE 100 MG, METOPROLOL SUCCINATE 25 MG PO SCH (10:00)
[2023-09-25] MEDS ORDERED: metoPROLOL SUCCINATE 25 MG TAB.SR.24H (FP) PO SCH (10:00)
[2023-09-25] MEDS ORDERED: SODIUM CHLORIDE 250 ML IV PRN (10:54)
[2023-09-25] MEDS: BUDESONIDE/FORMETEROL FUMARATE 160/4.5 mcg INHALER IH SCH (10:56)
[2023-09-25] MEDS: TIOTROPIUM BROMIDE 2.5 MCG (SPIRIVA) RESPIMAT INHALER IH SCH (10:56)
[2023-09-25] MEDS ORDERED: AMOXICILLIN 500 MG CAPSULE (FP) ONE (11:36)
[2023-09-25] MEDS: AMOXICILLIN 500 MG CAPSULE (FP) PO SCH (12:50)
[2023-09-25] MEDS: MONTELUKAST NA 10 MG TABLET PO SCH (22:29)
[2023-09-26 06:45] LABS: BASO % 0.6 % (0-2.0); EOS % 3.6 % (0-4.5); HEMATOCRIT 38.3 % (35.4-49); HEMOGLOBIN 12.4 GM/dL (11.7-16.9); LYMPH % 27.5 % (8-40); MCH 29.7 pg (25.7-33.7); MCHC 32.4 g/dl (32.0-35.9); MEAN CELL VOLUME 91.7 fl (80-96); MEAN PLT VOLUME 7.4 fl (7.5-11.1); MONO % 13.9 % (3.8-10.2); NEUT % 54.4 % (42.8-82.8); PLATELET COUNT 241 10^3/uL (134-434); RBC 4.18 M/mm3 (4.00-5.60); RDW 17.1 % (11.9-15.9); WHITE BLOOD COUNT 6.7 K/mm3 (4.0-10.0)
[2023-09-26 06:56] LABS: POTASSIUM 4.6 mmol/L (3.5-5.1)
[2023-09-26 07:00] LABS: CALCIUM 8.2 mg/dL (8.5-10.1)
[2023-09-26 07:01] LABS: BLOOD UREA NITROGEN 60.2 mg/dL (7-18); MAGNESIUM 1.9 mg/dL (1.8-2.4)
[2023-09-26 07:04] LABS: CREATININE 6.3 mg/dL (0.55-1.3); PHOSPHOROUS 5.6 mg/dL (2.5-4.9)
[2023-09-26 11:28] LABS: EPI CELLS 5 /uL (0-25.1); HYALINE CASTS 0 /uL (0-3.1); PH,URINE 7.5 (5.0-8.0); URINE APPEARANCE CLEAR; URINE BACTERIA 5 /uL (0-1359); URINE BILIRUBIN NEGATIVE (NEGATIVE); URINE COLOR YELLOW; URINE GLUCOSE (UA) NEGATIVE (NEGATIVE); URINE KETONE NEGATIVE (NEGATIVE); URINE LEUK ESTERASE TRACE (NEGATIVE); URINE NITRITE NEGATIVE (NEGATIVE); URINE PROTEIN 3+ (NEGATIVE); URINE RBC 64 /uL (0-23.9); URINE UROBILINOGEN 0.2 mg/dL (0.2-1.0); URINE WBC 23 /uL (0-25.8)
[2023-09-26 16:57] VITALS: RESP 18
[2023-09-27 08:47] VITALS: BP 148/74; PULSE 81; TEMP 98.6
[2023-09-27] MEDS: MAGNESIUM 1GM/D5W - 1 GM/100 ML IVPB IVPB ONE (09:38)
== END 2023-09-27 16:02 | disposition home or self-care (01) ==
LOC: JER 19:09 → JERBED 09-25 01:43 → J4S 09-25 21:45
PROVIDERS: ADMIT Internal Medicine; ATTEND Nurse Practitioner
PROC: 3E033GC Introduction of Other Therapeutic Substance into Peripheral Vein, Percutaneous Approach (ICD-10-PCS; principal; 2023-09-25)
DX: N18.6 End stage renal disease (principal); J44.9 Chronic obstructive pulmonary disease, unspecified; R00.1 Bradycardia, unspecified; D64.9 Anemia, unspecified; I12.0 Hypertensive chronic kidney disease with stage 5 chronic kidney disease or end stage renal disease; Z99.2 Dependence on renal dialysis; I48.91 Unspecified atrial fibrillation; F17.210 Nicotine dependence, cigarettes, uncomplicated; E87.5 Hyperkalemia; I48.0 Paroxysmal atrial fibrillation; N40.0 Benign prostatic hyperplasia without lower urinary tract symptoms; Z79.01 Long term (current) use of anticoagulants; Z88.8 Allergy status to other drugs, medicaments and biological substances
CPT/HCPCS: 36415; 71045-TC-FY; 80048; 80053; 81003; 83735; 84100; 84484; 85025; 85027; 86705; 86803; 86850; 86900; 86901; 87040; 87340; 93005; 93010; 96365; 99285-25; G0378

== ENCOUNTER 2023-11-21 22:41 | Emergency (ER) | payer OTHER ==
[2023-11-21 22:58] VITALS: BMI 22.1
[2023-11-21] MEDS: ALBUTEROL SO4 2.5/IPRATROPIUM 0.5 INH SOL 3 ML VIAL.NEB. NEB SCH (23:10)
[2023-11-22 00:04] LABS: BASO % 0.3 % (0-2.0); EOS % 3.2 % (0-4.5); HEMOGLOBIN 12.6 GM/dL (11.7-16.9); LYMPH % 19.1 % (8-40); MCH 28.9 pg (25.7-33.7); MCHC 33.2 g/dl (32.0-35.9); MEAN CELL VOLUME 86.9 fl (80-96); MEAN PLT VOLUME 7.2 fl (7.5-11.1); MONO % 10.4 % (3.8-10.2); PLATELET COUNT 274 10^3/uL (134-434); RBC 4.37 M/mm3 (4.00-5.60); RDW 15.5 % (11.9-15.9); WHITE BLOOD COUNT 10.8 K/mm3 (4.0-10.0)
[2023-11-22 00:16] LABS: VENOUS BASE EXCESS 0.7 mmol/L (-2-2); VENOUS O2 SATURATION 38.8 % (70-80); VENOUS PCO2 51.2 mmHg (38-52); VENOUS PH 7.343 (7.310-7.410)
[2023-11-22 00:35] VITALS: TEMP 98.4
[2023-11-22 00:53] LABS: POTASSIUM 4.4 mmol/L (3.5-5.1)
[2023-11-22 00:56] LABS: ALBUMIN 3.3 g/dl (3.4-5.0)
[2023-11-22 00:57] LABS: CALCIUM 8.8 mg/dL (8.5-10.1)
[2023-11-22 01:00] LABS: CREATININE 4.9 mg/dL (0.55-1.3)
[2023-11-22 01:01] LABS: BILIRUBIN,TOTAL 0.3 mg/dL (0.2-1)
[2023-11-22 01:02] LABS: N-TERMINAL BNP 3854.7 pg/ml (5-450)
[2023-11-22] MEDS ORDERED: CEFTRIAXONE 1 GM/50 ML BAG ONE (01:12)
[2023-11-22] MEDS ORDERED: AZITHROMYCIN IVPB 500 MG/250 ML BAG IVPB ONE (01:12)
[2023-11-22] MEDS: CEFTRIAXONE 1,000 MG in DEXTROSE 5%-WATER - 50 ML IVPB ONE (01:16)
[2023-11-22] MEDS: AZITHROMYCIN IVPB 500 MG in DEXTROSE 5%-WATER - 250 ML IVPB ONE (01:56)
[2023-11-22 04:16] VITALS: BP 141/77; PULSE 78; RESP 16
[2023-11-23] MEDS ORDERED: SODIUM CHLORIDE 250 ML IV PRN (15:17)
== END 2023-11-22 06:52 | disposition home or self-care (01) ==
LOC: JER 22:41
PROC: 3E03329 Introduction of Other Anti-infective into Peripheral Vein, Percutaneous Approach (ICD-10-PCS; principal; 2023-11-22)
PROC: 3E03329 Introduction of Other Anti-infective into Peripheral Vein, Percutaneous Approach (ICD-10-PCS; 2023-11-22)
PROC: 3E0F7GC Introduction of Other Therapeutic Substance into Respiratory Tract, Via Natural or Artificial Opening (ICD-10-PCS; 2023-11-22)
DX: R06.02 Shortness of breath (principal); J44.1 Chronic obstructive pulmonary disease with (acute) exacerbation; J18.9 Pneumonia, unspecified organism; R05.9 Cough, unspecified; F17.210 Nicotine dependence, cigarettes, uncomplicated; Z20.822 Contact with and (suspected) exposure to COVID-19
CPT/HCPCS: 0241U-QW; 36415; 71045-TC-FY; 80053; 82803; 83880; 84484; 85025; 93005; 93010; 94640; 96365; 96367; 99285-25

== ENCOUNTER 2023-11-23 10:16 | Observation (INO) | payer OTHER ==
[2023-11-23] MEDS: ALBUTEROL SO4 2.5/IPRATROPIUM 0.5 INH SOL 3 ML VIAL.NEB. NEB SCH (11:30)
[2023-11-23] MEDS ORDERED: ALBUTEROL SO4 2.5/IPRATROPIUM 0.5 INH SOL 3 ML VIAL.NEB. NEB ONE (11:55)
[2023-11-23 11:58] LABS: BASO % 0.4 % (0-2.0); EOS % 0.2 % (0-4.5); HEMATOCRIT 38.6 % (35.4-49); HEMOGLOBIN 12.8 GM/dL (11.7-16.9); LYMPH % 6.6 % (8-40); MCH 28.9 pg (25.7-33.7); MCHC 33.1 g/dl (32.0-35.9); MEAN CELL VOLUME 87.3 fl (80-96); MEAN PLT VOLUME 7.7 fl (7.5-11.1); MONO % 6.5 % (3.8-10.2); NEUT % 86.3 % (42.8-82.8); PLATELET COUNT 364 10^3/uL (134-434); RBC 4.42 M/mm3 (4.00-5.60); RDW 15.5 % (11.9-15.9); WHITE BLOOD COUNT 11.7 K/mm3 (4.0-10.0)
[2023-11-23 12:07] LABS: VENOUS BASE EXCESS -3.8 mmol/L (-2-2); VENOUS O2 SATURATION 32.9 % (70-80); VENOUS PCO2 43.5 mmHg (38-52); VENOUS PH 7.325 (7.310-7.410)
[2023-11-23 12:25] LABS: CHLORIDE 100 mmol/L (98-107); POTASSIUM 5.2 mmol/L (3.5-5.1); SODIUM 136 mmol/L (136-145)
[2023-11-23 12:27] LABS: CALCIUM 9.5 mg/dL (8.5-10.1)
[2023-11-23 12:28] LABS: ALBUMIN 3.6 g/dl (3.4-5.0); ANION GAP 13 mmol/L (4-13); CO2 24 mmol/L (21-32); GLUCOSE,RANDOM 113 mg/dL (74-106)
[2023-11-23 12:30] LABS: BLOOD UREA NITROGEN 78.7 mg/dL (7-18)
[2023-11-23 12:31] LABS: SGOT/AST 16 U/L (15-37); SGPT/ALT 18 U/L (13-61)
[2023-11-23 12:32] LABS: BILIRUBIN,TOTAL 0.4 mg/dL (0.2-1); TOT PROT 7.9 g/dl (6.4-8.2)
[2023-11-23 12:34] LABS: ALK PHOS 107 U/L (45-117)
[2023-11-23 12:36] LABS: N-TERMINAL BNP 5275.3 pg/ml (5-450)
[2023-11-23 12:43] LABS: CREATININE 7.8 mg/dL (0.55-1.3)
[2023-11-23 13:31] LABS: INR 1.47 (0.83-1.09); PROTHROMBIN TIME (PATIENT) 16.4 SEC (9.7-13.0)
[2023-11-23 13:34] LABS: ACTIVATED PTT 35.7 SECONDS (25.2-36.5)
[2023-11-23] MEDS ORDERED: AZITHROMYCIN IVPB 500 MG/250 ML BAG IVPB SCH (16:00)
[2023-11-23] MEDS: AZITHROMYCIN IVPB 500 MG/250 ML BAG IVPB SCH (21:23)
[2023-11-23] MEDS: TAMSULOSIN HCL 0.4 MG CAP PO SCH (21:23)
[2023-11-23] MEDS: APIXABAN 5 MG TABLET PO SCH (21:23)
[2023-11-23] MEDS: MONTELUKAST NA 10 MG TABLET PO SCH (21:23)
[2023-11-23] MEDS: methylPREDNISolone NA SUCC 125 MG/2 ML VIAL IVPUSH SCH (21:26)
[2023-11-23] MEDS: guaiFENesin 600 MG TABLET.ER (FP) PO PRN (21:26)
[2023-11-23] MEDS: ALBUTEROL SO4 2.5/IPRATROPIUM 0.5 INH SOL 3 ML VIAL.NEB. NEB PRN (21:32)
[2023-11-23 22:42] VITALS: BMI 21.6
[2023-11-23] MEDS: ACETAMINOPHEN 325 MG TABLET (FP) PO ONE (23:01)
[2023-11-24] MEDS: FUROSEMIDE 20 MG TABLET (FP) PO SCH (09:11)
[2023-11-24 09:17] VITALS: RESP 18
[2023-11-24] MEDS: BUDESONIDE/FORMETEROL FUMARATE 80/4.5 mcg INHALER IH SCH (11:13)
[2023-11-24] MEDS ORDERED: ACETAMINOPHEN 325 MG TABLET (FP) PO PRN (16:31)
[2023-11-24] MEDS: NICOTINE 14 MG/24 HOURS TOPICAL PATCH TD SCH (16:56)
[2023-11-24] MEDS: SEVELAMER CARBONATE 800 MG TAB (FP) PO SCH (16:56)
[2023-11-24] MEDS: methylPREDNISolone NA SUCC 40 MG/1 ML VIAL IVPUSH SCH (21:10)
[2023-11-25] MEDS: TAMSULOSIN HCL 0.4 MG CAP PO SCH (07:53)
[2023-11-25] MEDS: SOLIFENACIN SUCCINATE 5 MG TAB PO SCH (09:14)
[2023-11-25] MEDS: ALBUTEROL SO4 2.5/IPRATROPIUM 0.5 INH SOL 3 ML VIAL.NEB. NEB SCH (12:18)
[2023-11-25] MEDS: BUDESONIDE/FORMETEROL FUMARATE 160/4.5 mcg INHALER IH SCH (13:08)
[2023-11-25] MEDS ORDERED: SODIUM CHLORIDE 250 ML IV PRN (14:17)
[2023-11-25 17:37] LABS: HEMATOCRIT 36.1 % (35.4-49); HEMOGLOBIN 11.7 GM/dL (11.7-16.9); MCH 28.3 pg (25.7-33.7); MCHC 32.3 g/dl (32.0-35.9); MEAN CELL VOLUME 87.6 fl (80-96); PLATELET COUNT 305 10^3/uL (134-434); RBC 4.12 M/mm3 (4.00-5.60); RDW 15.6 % (11.9-15.9); WHITE BLOOD COUNT 13.9 K/mm3 (4.0-10.0)
[2023-11-25] MEDS: THIAMINE 100 MG TABLET PO SCH (17:56)
[2023-11-25 18:02] LABS: CHLORIDE 98 mmol/L (98-107); POTASSIUM 4.8 mmol/L (3.5-5.1); SODIUM 137 mmol/L (136-145)
[2023-11-25 18:04] LABS: ANION GAP 14 mmol/L (4-13); BLOOD UREA NITROGEN 91.8 mg/dL (7-18); CO2 25 mmol/L (21-32); GLUCOSE,RANDOM 137 mg/dL (74-106)
[2023-11-25 18:09] LABS: CREATININE 8.2 mg/dL (0.55-1.3)
[2023-11-25 18:51] LABS: ANISOCYTOSIS 0; MACROCYTOSIS 0; SICKELED CELLS 0
[2023-11-25 18:52] LABS: PLATELET ESTIMATE ADEQUATE
[2023-11-26 04:41] VITALS: TEMP 97.7
[2023-11-26] MEDS: FOLIC ACID 1 MG TABLET (FP) PO SCH (09:11)
[2023-11-26 10:19] LABS: CHLORIDE 96 mmol/L (98-107); POTASSIUM 4.6 mmol/L (3.5-5.1); SODIUM 133 mmol/L (136-145)
[2023-11-26 10:28] LABS: GLUCOSE,RANDOM 116 mg/dL (74-106)
[2023-11-26 10:29] LABS: ANION GAP 15 mmol/L (4-13); CO2 23 mmol/L (21-32)
[2023-11-26 10:31] LABS: CALCIUM 9.1 mg/dL (8.5-10.1); PHOSPHOROUS 5.6 mg/dL (2.5-4.9)
[2023-11-26 10:32] LABS: BLOOD UREA NITROGEN 104.6 mg/dL (7-18); CREATININE 8.6 mg/dL (0.55-1.3); MAGNESIUM 2.2 mg/dL (1.8-2.4)
[2023-11-26 13:14] LABS: HEMATOCRIT 34.5 % (35.4-49); HEMOGLOBIN 11.4 GM/dL (11.7-16.9); MCH 29.4 pg (25.7-33.7); MEAN CELL VOLUME 88.9 fl (80-96); PLATELET COUNT 286 10^3/uL (134-434); RBC 3.88 M/mm3 (4.00-5.60); WHITE BLOOD COUNT 10.8 K/mm3 (4.0-10.0)
[2023-11-26 16:44] VITALS: BP 164/89; PULSE 69
== END 2023-11-26 18:35 | disposition home or self-care (01) ==
LOC: JER 10:16 → INTOOBSV 14:03 → UNDOADMOB 14:03 → JERBED 14:03 → J6S 19:53 → JERBED 19:53 → J6S 11-24 14:13 → JERBED 11-24 14:13
PROVIDERS: ADMIT Internal Medicine; ATTEND Internal Medicine
PROC: 3E0F7GC Introduction of Other Therapeutic Substance into Respiratory Tract, Via Natural or Artificial Opening (ICD-10-PCS; principal; 2023-11-24)
PROC: 3E03329 Introduction of Other Anti-infective into Peripheral Vein, Percutaneous Approach (ICD-10-PCS; 2023-11-24)
PROC: 3E033GC Introduction of Other Therapeutic Substance into Peripheral Vein, Percutaneous Approach (ICD-10-PCS; 2023-11-24)
DX: J44.1 Chronic obstructive pulmonary disease with (acute) exacerbation (principal); I48.0 Paroxysmal atrial fibrillation; N18.6 End stage renal disease; Z99.2 Dependence on renal dialysis; J45.909 Unspecified asthma, uncomplicated; F17.210 Nicotine dependence, cigarettes, uncomplicated; Z79.01 Long term (current) use of anticoagulants
CPT/HCPCS: 36415; 71045-TC-FY; 71250-TC; 80048; 80053; 82803; 83735; 83880; 84100; 84484; 85025; 85027; 85610; 85730; 86803; 87340; 93005; 93010; 94640; 94761; 96365; 96375; 96376; 97116-GP; 97161-GP; 99285-25; G0378

== ENCOUNTER 2023-12-16 13:44 | Inpatient (IN) | payer OTHER ==
[2023-12-16] MEDS ORDERED: methylPREDNISolone NA SUCC 125 MG/2 ML VIAL ONE (15:49)
[2023-12-16] MEDS ORDERED: ALBUTEROL SO4 2.5/IPRATROPIUM 0.5 INH SOL 3 ML VIAL.NEB. NEB ONE ×2 (15:49→20:07)
[2023-12-16 15:51] LABS: VENOUS O2 SATURATION 38.4 % (70-80); VENOUS PCO2 51.7 mmHg (38-52); VENOUS PH 7.286 (7.310-7.410)
[2023-12-16 15:54] LABS: BASO % 0.6 % (0-2.0); EOS % 8.2 % (0-4.5); HEMATOCRIT 35.2 % (35.4-49); HEMOGLOBIN 11.5 GM/dL (11.7-16.9); LYMPH % 11.2 % (8-40); MCH 29.6 pg (25.7-33.7); MCHC 32.8 g/dl (32.0-35.9); MEAN CELL VOLUME 90.4 fl (80-96); MEAN PLT VOLUME 7.2 fl (7.5-11.1); MONO % 13.6 % (3.8-10.2); NEUT % 66.4 % (42.8-82.8); PLATELET COUNT 212 10^3/uL (134-434); RBC 3.89 M/mm3 (4.00-5.60); RDW 16.4 % (11.9-15.9); WHITE BLOOD COUNT 8.9 K/mm3 (4.0-10.0)
[2023-12-16] MEDS: methylPREDNISolone NA SUCC 125 MG/2 ML VIAL IVPUSH ONE (15:54)
[2023-12-16] MEDS: ALBUTEROL SO4 2.5/IPRATROPIUM 0.5 INH SOL 3 ML VIAL.NEB. NEB SCH ×2 (15:54→20:13)
[2023-12-16 16:13] LABS: CHLORIDE 106 mmol/L (98-107); POTASSIUM 5.5 mmol/L (3.5-5.1); SODIUM 139 mmol/L (136-145)
[2023-12-16 16:15] LABS: ALBUMIN 3.1 g/dl (3.4-5.0); ANION GAP 6 mmol/L (4-13); BLOOD UREA NITROGEN 46.1 mg/dL (7-18); CO2 26 mmol/L (21-32); MAGNESIUM 2.3 mg/dL (1.8-2.4)
[2023-12-16 16:16] LABS: GLUCOSE,RANDOM 81 mg/dL (74-106)
[2023-12-16 16:18] LABS: SGOT/AST 7 U/L (15-37)
[2023-12-16 16:19] LABS: SGPT/ALT 17 U/L (13-61)
[2023-12-16 16:20] LABS: TOT PROT 6.5 g/dl (6.4-8.2)
[2023-12-16 16:22] LABS: ALK PHOS 88 U/L (45-117); BILIRUBIN,TOTAL 0.6 mg/dL (0.2-1)
[2023-12-16 16:29] LABS: CALCIUM 9.5 mg/dL (8.5-10.1); CREATININE 8.6 mg/dL (0.55-1.3)
[2023-12-16] MEDS ORDERED: FUROSEMIDE 20 MG TABLET (FP) ONE (17:37)
[2023-12-16] MEDS ORDERED: AZITHROMYCIN 500 MG TABLET ONE (17:37)
[2023-12-16] MEDS ORDERED: NIFEdipine E.R. 30 MG TABLET PO ONE (17:37)
[2023-12-16] MEDS ORDERED: SEVELAMER CARBONATE 800 MG TAB (FP) ONE (17:38)
[2023-12-16] MEDS: NIFEdipine E.R. 30 MG TABLET PO SCH (17:53)
[2023-12-16] MEDS: FUROSEMIDE 20 MG TABLET (FP) PO SCH (17:53)
[2023-12-16] MEDS: SEVELAMER CARBONATE 800 MG TAB (FP) PO SCH (17:53)
[2023-12-16] MEDS: AZITHROMYCIN 250 MG TABLET PO SCH (17:53)
[2023-12-16] MEDS ORDERED: APIXABAN 5 MG TABLET ONE (21:25)
[2023-12-16] MEDS ORDERED: MONTELUKAST NA 10 MG TABLET ONE (21:25)
[2023-12-16] MEDS ORDERED: LABETALOL HCL 20 MG/4 ML VIAL ONE (21:26)
[2023-12-16] MEDS: APIXABAN 5 MG TABLET PO SCH (21:32)
[2023-12-16] MEDS: MONTELUKAST NA 10 MG TABLET PO SCH (21:32)
[2023-12-16] MEDS: LABETALOL HCL 5 MG/1 ML (100MG/20 ML VIAL) IVPUSH ONE (21:32)
[2023-12-16] MEDS: BUDESONIDE/FORMETEROL FUMARATE 160/4.5 mcg INHALER IH SCH (23:02)
[2023-12-17] MEDS: guaiFENesin 200 MG/10 ML 10 ML UNIT-DOSE CUPS PO ONE (02:04)
[2023-12-17] MEDS: ALBUTEROL SO4 2.5/IPRATROPIUM 0.5 INH SOL 3 ML VIAL.NEB. NEB ONE (02:17)
[2023-12-17] MEDS: ALBUTEROL SO4 0.083% IH SOL 2.5 MG/3 ML VIAL.NEB. NEB PRN (02:17)
[2023-12-17 03:46] VITALS: BMI 24.5
[2023-12-17] MEDS: TAMSULOSIN HCL 0.4 MG CAP PO SCH (08:00)
[2023-12-17] MEDS: methylPREDNISolone NA SUCC 40 MG/1 ML VIAL IVPUSH SCH (08:00)
[2023-12-17] MEDS ORDERED: SODIUM CHLORIDE 250 ML IV PRN (09:03)
[2023-12-17] MEDS: SOLIFENACIN SUCCINATE 5 MG TAB PO SCH (09:38)
[2023-12-17] MEDS: SODIUM ZIRCONIUM CYCLOSILICATE (LOKELMA) 5 GM PACKET PO SCH (09:52)
[2023-12-17] MEDS ORDERED: FUROSEMIDE 20 MG TABLET (FP) PO SCH (10:00)
[2023-12-17 10:32] LABS: BASO % 0.3 % (0-2.0); HEMATOCRIT 32.1 % (35.4-49); HEMOGLOBIN 10.8 GM/dL (11.7-16.9); LYMPH % 6.7 % (8-40); MCHC 33.5 g/dl (32.0-35.9); MEAN CELL VOLUME 89.5 fl (80-96); MEAN PLT VOLUME 7.4 fl (7.5-11.1); MONO % 5.1 % (3.8-10.2); NEUT % 87.9 % (42.8-82.8); PLATELET COUNT 223 10^3/uL (134-434); RBC 3.59 M/mm3 (4.00-5.60); RDW 15.9 % (11.9-15.9); WHITE BLOOD COUNT 8.1 K/mm3 (4.0-10.0)
[2023-12-17 10:54] LABS: CHLORIDE 103 mmol/L (98-107); POTASSIUM 5.4 mmol/L (3.5-5.1); SODIUM 135 mmol/L (136-145)
[2023-12-17 11:17] LABS: ANION GAP 11 mmol/L (4-13); CO2 21 mmol/L (21-32); GLUCOSE,RANDOM 251 mg/dL (74-106)
[2023-12-17 11:21] LABS: CREATININE 9.4 mg/dL (0.55-1.3)
[2023-12-17] MEDS: guaiFENesin 200 MG/10 ML 10 ML UNIT-DOSE CUPS PO PRN (17:49)
[2023-12-18 10:11] LABS: BASO % 0.1 % (0-2.0); HEMATOCRIT 36.1 % (35.4-49); HEMOGLOBIN 11.6 GM/dL (11.7-16.9); LYMPH % 5.3 % (8-40); MCHC 32.1 g/dl (32.0-35.9); MEAN CELL VOLUME 90.3 fl (80-96); MEAN PLT VOLUME 7.6 fl (7.5-11.1); MONO % 5.9 % (3.8-10.2); NEUT % 88.7 % (42.8-82.8); PLATELET COUNT 274 10^3/uL (134-434); RDW 16.2 % (11.9-15.9); WHITE BLOOD COUNT 11.7 K/mm3 (4.0-10.0)
[2023-12-18 10:37] LABS: POTASSIUM 4.4 mmol/L (3.5-5.1)
[2023-12-18 10:53] LABS: ALBUMIN 3.1 g/dl (3.4-5.0); MAGNESIUM 2.3 mg/dL (1.8-2.4)
[2023-12-18 10:57] LABS: CREATININE 5.9 mg/dL (0.55-1.3)
[2023-12-18 10:58] LABS: BILIRUBIN,TOTAL 0.4 mg/dL (0.2-1); TOT PROT 6.5 g/dl (6.4-8.2)
[2023-12-18 11:43] LABS: BLOOD UREA NITROGEN 43.4 mg/dL (7-18)
[2023-12-18] MEDS ORDERED: SODIUM CHLORIDE 250 ML IV PRN (12:20)
[2023-12-18] MEDS: methylPREDNISolone NA SUCC 40 MG/1 ML VIAL IVPUSH SCH (21:58)
[2023-12-19 09:08] LABS: BASO % 0.1 % (0-2.0); HEMATOCRIT 33.4 % (35.4-49); HEMOGLOBIN 10.9 GM/dL (11.7-16.9); LYMPH % 9.6 % (8-40); MCH 29.5 pg (25.7-33.7); MCHC 32.6 g/dl (32.0-35.9); MEAN CELL VOLUME 90.5 fl (80-96); MEAN PLT VOLUME 7.5 fl (7.5-11.1); MONO % 9.2 % (3.8-10.2); NEUT % 81.1 % (42.8-82.8); PLATELET COUNT 281 10^3/uL (134-434); RBC 3.69 M/mm3 (4.00-5.60); RDW 15.8 % (11.9-15.9); WHITE BLOOD COUNT 10.1 K/mm3 (4.0-10.0)
[2023-12-19] MEDS: methylPREDNISolone NA SUCC 40 MG/1 ML VIAL IVPUSH SCH (09:12)
[2023-12-19 09:30] LABS: CHLORIDE 100 mmol/L (98-107); POTASSIUM 5.3 mmol/L (3.5-5.1); SODIUM 138 mmol/L (136-145)
[2023-12-19 09:38] LABS: ANION GAP 11 mmol/L (4-13); CO2 26 mmol/L (21-32); GLUCOSE,RANDOM 130 mg/dL (74-106); SGPT/ALT 15 U/L (13-61)
[2023-12-19 09:39] LABS: CALCIUM 8.6 mg/dL (8.5-10.1); MAGNESIUM 2.2 mg/dL (1.8-2.4)
[2023-12-19 09:40] LABS: BILIRUBIN,TOTAL 0.4 mg/dL (0.2-1); SGOT/AST 7 U/L (15-37); TOT PROT 5.9 g/dl (6.4-8.2)
[2023-12-19 09:41] LABS: ALK PHOS 78 U/L (45-117)
[2023-12-19 09:45] LABS: BLOOD UREA NITROGEN 69.7 mg/dL (7-18); CREATININE 7.5 mg/dL (0.55-1.3)
[2023-12-19] MEDS ORDERED: HEPARIN NA (PORCINE) 5,000 UNITS/ML 1ML VIAL IVPUSH ONE (12:20)
[2023-12-19 17:19] VITALS: RESP 20
[2023-12-20 04:17] VITALS: TEMP 97.9
[2023-12-20] MEDS: predniSONE 20 MG TABLET (UD) PO SCH (09:13)
[2023-12-20 09:43] LABS: HEMATOCRIT 34.8 % (35.4-49); HEMOGLOBIN 11.4 GM/dL (11.7-16.9); MCH 29.5 pg (25.7-33.7); MCHC 32.8 g/dl (32.0-35.9); MEAN CELL VOLUME 89.7 fl (80-96); MEAN PLT VOLUME 7.1 fl (7.5-11.1); PLATELET COUNT 304 10^3/uL (134-434); RBC 3.88 M/mm3 (4.00-5.60); RDW 15.8 % (11.9-15.9); WHITE BLOOD COUNT 8.6 K/mm3 (4.0-10.0)
[2023-12-20 10:01] LABS: CALCIUM 8.6 mg/dL (8.5-10.1)
[2023-12-20 10:02] LABS: ALBUMIN 2.9 g/dl (3.4-5.0)
[2023-12-20 10:05] LABS: CREATININE 4.5 mg/dL (0.55-1.3)
[2023-12-20 10:07] LABS: TOT PROT 5.8 g/dl (6.4-8.2)
[2023-12-20 10:19] LABS: BLOOD UREA NITROGEN 35.6 mg/dL (7-18)
[2023-12-20 10:58] LABS: BILIRUBIN,TOTAL 0.9 mg/dL (0.2-1)
[2023-12-20 11:13] LABS: ANISOCYTOSIS 1+; MACROCYTOSIS 0
[2023-12-20] MEDS ORDERED: SODIUM CHLORIDE 250 ML IV PRN (13:48)
[2023-12-20 18:09] VITALS: BP 120/75; PULSE 80
== END 2023-12-20 20:55 | DRG 190 ==
LOC: JER 13:44 → JERBED 16:48 → J8W 22:04 → OBSVTOIN 12-17 14:40
PROVIDERS: ADMIT Internal Medicine; ATTEND Nurse Practitioner Acute Care
PROC: 5A1D70Z Performance of Urinary Filtration, Intermittent, Less than 6 Hours Per Day (ICD-10-PCS; principal; 2023-12-19)
DX: J44.1 Chronic obstructive pulmonary disease with (acute) exacerbation (principal); N18.6 End stage renal disease; I12.0 Hypertensive chronic kidney disease with stage 5 chronic kidney disease or end stage renal disease; D64.9 Anemia, unspecified; I48.0 Paroxysmal atrial fibrillation; I16.0 Hypertensive urgency; E87.5 Hyperkalemia; Z99.2 Dependence on renal dialysis
CPT/HCPCS: 0241U-QW; 36415; 71045-TC-FY; 80048; 80053; 82803; 83735; 85025; 86803; 87340; 93005; 93010; 94640; 97116-GP; 97161-GP; 99285-25; G0378

== ENCOUNTER 2024-01-14 14:29 | Inpatient (IN) | payer OTHER ==
[2024-01-14] MEDS ORDERED: methylPREDNISolone NA SUCC 125 MG/2 ML VIAL ONE (14:36)
[2024-01-14] MEDS ORDERED: ALBUTEROL SO4 2.5/IPRATROPIUM 0.5 INH SOL 3 ML VIAL.NEB. NEB ONE (14:36)
[2024-01-14] MEDS ORDERED: MAGNESIUM SULFATE IN WATER 2 GM/50 ML IVPB IVPB ONE (14:47)
[2024-01-14] MEDS: methylPREDNISolone NA SUCC 125 MG/2 ML VIAL IVPB ONE (14:48)
[2024-01-14] MEDS: MAGNESIUM SULFATE IN WATER 2 GM/50 ML IVPB IVPB ONE (14:48)
[2024-01-14] MEDS: ALBUTEROL SO4 2.5/IPRATROPIUM 0.5 INH SOL 3 ML VIAL.NEB. NEB ONE (14:48)
[2024-01-14] MEDS ORDERED: methylPREDNISolone NA SUCC 125 MG/2 ML VIAL IM ONE (14:48)
[2024-01-14] MEDS ORDERED: TERBUTALINE SULFATE 1 MG/1 ML VIAL SQ ONE (14:50)
[2024-01-14] MEDS: TERBUTALINE SULFATE 1 MG/1 ML VIAL SQ ONE (14:53)
[2024-01-14] MEDS: DEXAMETHASONE SOD PHOSPHATE 10 MG/1 ML VIAL IM ONE (15:02)
[2024-01-14 15:04] LABS: VENOUS BASE EXCESS 1.5 mmol/L (-2-2); VENOUS O2 SATURATION 25.4 % (70-80); VENOUS PCO2 64.7 mmHg (38-52); VENOUS PH 7.282 (7.310-7.410)
[2024-01-14 15:05] LABS: BASO % 0.6 % (0-2.0); EOS % 8.1 % (0-4.5); HEMATOCRIT 37.9 % (35.4-49); HEMOGLOBIN 12.6 GM/dL (11.7-16.9); LYMPH % 14.6 % (8-40); MCH 30.1 pg (25.7-33.7); MCHC 33.2 g/dl (32.0-35.9); MEAN CELL VOLUME 90.9 fl (80-96); MEAN PLT VOLUME 7.2 fl (7.5-11.1); NEUT % 65.7 % (42.8-82.8); PLATELET COUNT 280 10^3/uL (134-434); RBC 4.17 M/mm3 (4.00-5.60); RDW 16.7 % (11.9-15.9); WHITE BLOOD COUNT 10.5 K/mm3 (4.0-10.0)
[2024-01-14 15:12] LABS: INR 0.96 (0.83-1.09); PROTHROMBIN TIME (PATIENT) 11.1 SEC (9.7-13.0)
[2024-01-14 15:21] LABS: POTASSIUM 4.5 mmol/L (3.5-5.1)
[2024-01-14 15:25] LABS: ALBUMIN 3.7 g/dl (3.4-5.0)
[2024-01-14 15:26] LABS: BLOOD UREA NITROGEN 27.4 mg/dL (7-18); CALCIUM 9.4 mg/dL (8.5-10.1); MAGNESIUM 2.2 mg/dL (1.8-2.4)
[2024-01-14 15:28] LABS: BILIRUBIN,TOTAL 0.4 mg/dL (0.2-1)
[2024-01-14 15:30] LABS: CREATININE 4.4 mg/dL (0.55-1.3); PHOSPHOROUS 4.2 mg/dL (2.5-4.9)
[2024-01-14 15:31] LABS: TOT PROT 7.3 g/dl (6.4-8.2)
[2024-01-14 15:53] LABS: VENOUS BASE EXCESS 1.1 mmol/L (-2-2); VENOUS O2 SATURATION 38.6 % (70-80); VENOUS PCO2 58.5 mmHg (38-52); VENOUS PH 7.307 (7.310-7.410)
[2024-01-14] MEDS ORDERED: AZITHROMYCIN IVPB 500 MG/250 ML BAG IVPB ONE (16:52)
[2024-01-14] MEDS: AZITHROMYCIN IVPB 500 MG in DEXTROSE 5%-WATER - 250 ML IVPB SCH (17:07)
[2024-01-14] MEDS: SEVELAMER CARBONATE 800 MG TAB (FP) PO SCH (17:45)
[2024-01-14] MEDS: methylPREDNISolone NA SUCC 40 MG/1 ML VIAL IVPUSH SCH (18:52)
[2024-01-14] MEDS ORDERED: ALBUTEROL SO4 2.5/IPRATROPIUM 0.5 INH SOL 3 ML VIAL.NEB. NEB PRN (18:59)
[2024-01-14] MEDS: ALBUTEROL SO4 2.5/IPRATROPIUM 0.5 INH SOL 3 ML VIAL.NEB. NEB SCH (20:20)
[2024-01-14] MEDS: APIXABAN 5 MG TABLET PO SCH (21:44)
[2024-01-14] MEDS ORDERED: HEPARIN NA (PORCINE) 5,000 UNITS/ML 1ML VIAL SQ SCH (22:00)
[2024-01-15 08:23] LABS: HEMATOCRIT 34.2 % (35.4-49); HEMOGLOBIN 11.2 GM/dL (11.7-16.9); MCH 29.8 pg (25.7-33.7); MCHC 32.8 g/dl (32.0-35.9); MEAN CELL VOLUME 90.9 fl (80-96); MEAN PLT VOLUME 7.1 fl (7.5-11.1); PLATELET COUNT 263 10^3/uL (134-434); RBC 3.76 M/mm3 (4.00-5.60); RDW 16.3 % (11.9-15.9); WHITE BLOOD COUNT 9.7 K/mm3 (4.0-10.0)
[2024-01-15 08:40] LABS: POTASSIUM 4.8 mmol/L (3.5-5.1)
[2024-01-15 08:50] LABS: CALCIUM 9.2 mg/dL (8.5-10.1)
[2024-01-15 08:51] LABS: ALBUMIN 3.3 g/dl (3.4-5.0)
[2024-01-15 08:53] LABS: CREATININE 6.3 mg/dL (0.55-1.3)
[2024-01-15 08:55] LABS: BILIRUBIN,TOTAL 0.4 mg/dL (0.2-1); TOT PROT 6.6 g/dl (6.4-8.2)
[2024-01-15] MEDS: NIFEdipine E.R. 30 MG TABLET PO SCH (09:04)
[2024-01-15] MEDS: TAMSULOSIN HCL 0.4 MG CAP PO SCH (09:04)
[2024-01-15 09:22] LABS: ANISOCYTOSIS 2+; MACROCYTOSIS 2+; TEAR DROP CELLS 1+
[2024-01-15] MEDS: AZITHROMYCIN IVPB 500 MG/250 ML BAG IVPB SCH (10:15)
[2024-01-15 12:23] VITALS: BMI 23.5
[2024-01-16] MEDS ORDERED: SODIUM CHLORIDE 250 ML IV PRN (07:15)
[2024-01-16] MEDS: ALBUTEROL SO4 0.083% IH SOL 2.5 MG/3 ML VIAL.NEB. NEB PRN (08:05)
[2024-01-16] MEDS: HEPARIN NA (PORCINE) 5,000 UNITS/ML 1ML VIAL IVPUSH ONE (09:30)
[2024-01-16 13:40] LABS: BASO % 0.1 % (0-2.0); HEMOGLOBIN 11.1 GM/dL (11.7-16.9); LYMPH % 3.2 % (8-40); MCH 29.3 pg (25.7-33.7); MCHC 32.5 g/dl (32.0-35.9); MEAN CELL VOLUME 90.1 fl (80-96); MEAN PLT VOLUME 7.5 fl (7.5-11.1); MONO % 5.8 % (3.8-10.2); NEUT % 90.9 % (42.8-82.8); PLATELET COUNT 304 10^3/uL (134-434); RBC 3.77 M/mm3 (4.00-5.60); RDW 16.6 % (11.9-15.9); WHITE BLOOD COUNT 19.1 K/mm3 (4.0-10.0)
[2024-01-16] MEDS: FLUTICASONE/UMECLIDIN/VILANTER(200-62.5-25 TRELEGY ELLIPTA) INAHLER IH SCH (14:14)
[2024-01-16] MEDS: ALBUTEROL SO4 0.083% IH SOL 2.5 MG/3 ML VIAL.NEB. NEB SCH (15:05)
[2024-01-16] MEDS: guaiFENesin/CODEINE 10 ML UNIT-DOSE CUPS PO PRN (21:14)
[2024-01-17 09:13] LABS: HEMATOCRIT 30.8 % (35.4-49); HEMOGLOBIN 10.1 GM/dL (11.7-16.9); MCH 29.8 pg (25.7-33.7); MCHC 32.7 g/dl (32.0-35.9); MEAN CELL VOLUME 91.1 fl (80-96); MEAN PLT VOLUME 7.4 fl (7.5-11.1); PLATELET COUNT 259 10^3/uL (134-434); RBC 3.39 M/mm3 (4.00-5.60); RDW 16.3 % (11.9-15.9); WHITE BLOOD COUNT 13.7 K/mm3 (4.0-10.0)
[2024-01-17 09:46] LABS: ANISOCYTOSIS 0; MACROCYTOSIS 0
[2024-01-17 09:56] LABS: POTASSIUM 5.3 mmol/L (3.5-5.1)
[2024-01-17] MEDS: predniSONE 10 MG TABLET (UD) PO SCH (10:00)
[2024-01-17 10:16] VITALS: RESP 18
[2024-01-17 10:36] LABS: ALBUMIN 3.2 g/dl (3.4-5.0); CALCIUM 8.9 mg/dL (8.5-10.1)
[2024-01-17 10:37] LABS: BLOOD UREA NITROGEN 43.5 mg/dL (7-18)
[2024-01-17 10:40] LABS: CREATININE 5.9 mg/dL (0.55-1.3)
[2024-01-17 10:41] LABS: BILIRUBIN,TOTAL 0.3 mg/dL (0.2-1); TOT PROT 5.9 g/dl (6.4-8.2)
[2024-01-17 15:30] VITALS: PULSE 86
[2024-01-17] MEDS: SODIUM ZIRCONIUM CYCLOSILICATE (LOKELMA) 5 GM PACKET PO SCH (16:12)
[2024-01-17 16:16] VITALS: BP 138/72; TEMP 98.6
[2024-01-17] MEDS ORDERED: SODIUM CHLORIDE 250 ML IV PRN (17:51)
== END 2024-01-17 18:11 | DRG 190 ==
LOC: JER 14:29 → JERBED 15:53 → OBSVTOIN 15:53 → J4W 18:35
PROVIDERS: ADMIT Internal Medicine; ATTEND Internal Medicine
PROC: 5A1D70Z Performance of Urinary Filtration, Intermittent, Less than 6 Hours Per Day (ICD-10-PCS; principal; 2024-01-16)
DX: J44.1 Chronic obstructive pulmonary disease with (acute) exacerbation (principal); N18.6 End stage renal disease; I12.0 Hypertensive chronic kidney disease with stage 5 chronic kidney disease or end stage renal disease; I48.0 Paroxysmal atrial fibrillation; N40.0 Benign prostatic hyperplasia without lower urinary tract symptoms; D64.9 Anemia, unspecified; F17.210 Nicotine dependence, cigarettes, uncomplicated; E87.5 Hyperkalemia; Z99.2 Dependence on renal dialysis
CPT/HCPCS: 0241U-QW; 36415; 71045-TC-FY; 80053; 82550; 82803; 82962; 83036; 83605; 83735; 84100; 84484; 85025; 85610; 85730; 86803; 86850; 86900; 86901; 87340; 93005; 93010; 94640; 94660; 99291; J1644

== ENCOUNTER 2024-02-18 12:16 | Inpatient (IN) | payer OTHER ==
[2024-02-18 12:29] VITALS: BMI 24.3
[2024-02-18 13:28] LABS: HEMOGLOBIN 11.8 GM/dL (11.7-16.9); MCH 30.3 pg (25.7-33.7); MCHC 32.7 g/dl (32.0-35.9); MEAN CELL VOLUME 92.6 fl (80-96); MEAN PLT VOLUME 6.6 fl (7.5-11.1); PLATELET COUNT 212 10^3/uL (134-434); RBC 3.89 M/mm3 (4.00-5.60); RDW 16.5 % (11.9-15.9); WHITE BLOOD COUNT 12.4 K/mm3 (4.0-10.0)
[2024-02-18 13:37] LABS: INR 0.87 (0.83-1.09); PROTHROMBIN TIME (PATIENT) 9.9 SEC (9.7-13.0)
[2024-02-18 13:40] LABS: ACTIVATED PTT 26.5 SECONDS (25.2-36.5)
[2024-02-18 14:03] LABS: CHLORIDE 101 mmol/L (98-107); POTASSIUM 5.5 mmol/L (3.5-5.1); SODIUM 138 mmol/L (136-145)
[2024-02-18 14:06] LABS: ANION GAP 13 mmol/L (4-13); CO2 24 mmol/L (21-32); MAGNESIUM 2.5 mg/dL (1.8-2.4)
[2024-02-18 14:08] LABS: ALBUMIN 3.2 g/dl (3.4-5.0); BLOOD UREA NITROGEN 127.8 mg/dL (7-18); GLUCOSE,RANDOM 173 mg/dL (74-106)
[2024-02-18 14:09] LABS: SGOT/AST < 3 U/L (15-37); SGPT/ALT 19 U/L (13-61)
[2024-02-18 14:11] LABS: BILIRUBIN,TOTAL 0.3 mg/dL (0.2-1)
[2024-02-18 14:12] LABS: ALK PHOS 91 U/L (45-117)
[2024-02-18 14:27] LABS: CREATININE 9.7 mg/dL (0.55-1.3); PHOSPHOROUS 5.8 mg/dL (2.5-4.9)
[2024-02-18 14:32] LABS: ANISOCYTOSIS 0; HELMET CELLS 0; HOWELL-JOLLY BODIES 0; MACROCYTOSIS 0; OVALOCYTE 0; ROULEAU 0; SICKELED CELLS 0; TARGET CELLS 0; TEAR DROP CELLS 0; TOXIC GRANULATION 0
[2024-02-18] MEDS: SODIUM CHLORIDE 0.9% 1000 ML INFUS.BAG IV ONE (15:06)
[2024-02-18] MEDS ORDERED: SODIUM ZIRCONIUM CYCLOSILICATE (LOKELMA) 10 GM PACKET ONE (17:33)
[2024-02-18] MEDS: SODIUM ZIRCONIUM CYCLOSILICATE (LOKELMA) 5 GM PACKET PO SCH (17:37)
[2024-02-18] MEDS ORDERED: DEXTROSE 50%-WATER 25 GM/50 ML DISP.SYRIN ONE (20:30)
[2024-02-18] MEDS ORDERED: METOPROLOL TARTRATE 5 MG/5 ML VIAL ONE ×2 (20:30→21:03)
[2024-02-18] MEDS: METOPROLOL TARTRATE 5 MG/5 ML VIAL IVPUSH ONE ×2 (20:39→21:12)
[2024-02-18] MEDS ORDERED: INSULIN REGULAR HUMAN 100 UNITS/ML *VIAL ONE (21:40)
[2024-02-18] MEDS: DEXTROSE 50%-WATER - 25 GM/50 ML VIAL IVPUSH ONE (21:57)
[2024-02-18] MEDS: INSULIN REGULAR HUMAN 100 UNITS/ML *VIAL IVPUSH ONE (21:57)
[2024-02-19] MEDS: APIXABAN 5 MG TABLET PO SCH (00:26)
[2024-02-19 06:54] LABS: HEMATOCRIT 34.3 % (35.4-49); HEMOGLOBIN 11.1 GM/dL (11.7-16.9); MCH 30.4 pg (25.7-33.7); MCHC 32.4 g/dl (32.0-35.9); MEAN CELL VOLUME 93.9 fl (80-96); MEAN PLT VOLUME 6.9 fl (7.5-11.1); PLATELET COUNT 201 10^3/uL (134-434); RBC 3.65 M/mm3 (4.00-5.60); RDW 16.7 % (11.9-15.9); WHITE BLOOD COUNT 10.9 K/mm3 (4.0-10.0)
[2024-02-19 07:10] LABS: CHLORIDE 107 mmol/L (98-107); POTASSIUM 5.5 mmol/L (3.5-5.1); SODIUM 144 mmol/L (136-145)
[2024-02-19 07:21] LABS: CALCIUM 8.4 mg/dL (8.5-10.1)
[2024-02-19 07:22] LABS: ALBUMIN 2.8 g/dl (3.4-5.0); ANION GAP 16 mmol/L (4-13); CO2 21 mmol/L (21-32); GLUCOSE,RANDOM 82 mg/dL (74-106)
[2024-02-19 07:23] LABS: SGPT/ALT 17 U/L (13-61)
[2024-02-19 07:24] LABS: BILIRUBIN,TOTAL 0.4 mg/dL (0.2-1); LDL CHOLESTEROL (ONLY SJRH) 90 mg/dL (5-100); SGOT/AST 6 U/L (15-37); TOT PROT 5.1 g/dl (6.4-8.2)
[2024-02-19 07:25] LABS: ALK PHOS 75 U/L (45-117)
[2024-02-19 07:26] LABS: HDL CHOLESTEROL 87 mg/dL (40-60)
[2024-02-19 07:43] LABS: BLOOD UREA NITROGEN 136.4 mg/dL (7-18); CREATININE 9.8 mg/dL (0.55-1.3)
[2024-02-19 08:52] LABS: CHOLESTEROL 198 mg/dL (50-200)
[2024-02-19] MEDS ORDERED: SODIUM CHLORIDE 250 ML IV PRN ×2 (09:09→09:13)
[2024-02-19 09:58] LABS: ANISOCYTOSIS 0; HELMET CELLS 0; HOWELL-JOLLY BODIES 0; MACROCYTOSIS 0; OVALOCYTE 0; ROULEAU 0; SICKELED CELLS 0; TARGET CELLS 0; TEAR DROP CELLS 0; TOXIC GRANULATION 0
[2024-02-19] MEDS ORDERED: SODIUM ZIRCONIUM CYCLOSILICATE (LOKELMA) 5 GM PACKET PO SCH (10:00)
[2024-02-19] MEDS: SEVELAMER CARBONATE 800 MG TAB (FP) PO SCH (10:31)
[2024-02-19] MEDS: ACETAMINOPHEN 325 MG TABLET (FP) PO PRN (10:32)
[2024-02-19] MEDS: TAMSULOSIN HCL 0.4 MG CAP PO SCH (10:32)
[2024-02-19] MEDS: NIFEdipine E.R. 30 MG TABLET PO SCH (10:32)
[2024-02-19] MEDS: FLUTICASONE/UMECLIDIN/VILANTER(200-62.5-25 TRELEGY ELLIPTA) INAHLER IH SCH (15:45)
[2024-02-19] MEDS: METOPROLOL TARTRATE 5 MG/5 ML VIAL IVPUSH PRN (15:58)
[2024-02-19] MEDS: MONTELUKAST NA 10 MG TABLET PO SCH (21:47)
[2024-02-21 04:31] VITALS: PULSE 147
[2024-02-21 08:33] VITALS: BP 111/88
[2024-02-21] MEDS: METOPROLOL TARTRATE 5 MG/5 ML VIAL IVPUSH ONE (10:49)
[2024-02-21] MEDS: DIGOXIN 0.5 MG/2 ML AMPUL IVPUSH ONE (10:49)
[2024-02-21 11:08] VITALS: RESP 19; TEMP 99.1
== END 2024-02-21 12:12 | disposition short-term general hospital (02) | DRG 308 ==
LOC: JER 12:16 → JERBED 20:48 → J4W 23:52
PROVIDERS: ADMIT Internal Medicine; ATTEND Family Medicine
DX: I48.92 Unspecified atrial flutter (principal); N18.6 End stage renal disease; I12.0 Hypertensive chronic kidney disease with stage 5 chronic kidney disease or end stage renal disease; I24.89 Other forms of acute ischemic heart disease; J44.9 Chronic obstructive pulmonary disease, unspecified
CPT/HCPCS: 0241U-QW; 36415; 71045-TC-FY; 80053; 80061; 82962; 83735; 84100; 84439; 84443; 84484; 85025; 85610; 85730; 86803; 87340; 93005; 93010; 93306-TC; 99285-25

== ENCOUNTER 2024-03-28 07:04 | Inpatient (IN) | payer OTHER ==
[2024-03-28 08:13] LABS: VENOUS BASE EXCESS -3.3 mmol/L (-2-2); VENOUS O2 SATURATION 90.4 % (70-80); VENOUS PCO2 41.5 mmHg (38-52); VENOUS PH 7.345 (7.310-7.410)
[2024-03-28 08:28] LABS: HEMATOCRIT 31.6 % (35.4-49); HEMOGLOBIN 9.9 GM/dL (11.7-16.9); MCH 29.4 pg (25.7-33.7); MCHC 31.4 g/dl (32.0-35.9); MEAN CELL VOLUME 93.6 fl (80-96); MEAN PLT VOLUME 6.9 fl (7.5-11.1); PLATELET COUNT 276 10^3/uL (134-434); RBC 3.38 M/mm3 (4.00-5.60); RDW 15.7 % (11.9-15.9); WHITE BLOOD COUNT 9.3 K/mm3 (4.0-10.0)
[2024-03-28 08:37] LABS: CHLORIDE 98 mmol/L (98-107); SODIUM 136 mmol/L (136-145)
[2024-03-28 08:39] LABS: ALBUMIN 2.9 g/dl (3.4-5.0); ANION GAP 13 mmol/L (4-13); BLOOD UREA NITROGEN 87.7 mg/dL (7-18); CO2 25 mmol/L (21-32); GLUCOSE,RANDOM 182 mg/dL (74-106); MAGNESIUM 3.1 mg/dL (1.8-2.4)
[2024-03-28 08:42] LABS: SGOT/AST 9 U/L (15-37); SGPT/ALT 15 U/L (13-61)
[2024-03-28 08:43] LABS: CREATININE 9.2 mg/dL (0.55-1.3)
[2024-03-28 08:44] LABS: BILIRUBIN,TOTAL 0.4 mg/dL (0.2-1)
[2024-03-28 08:45] LABS: ALK PHOS 71 U/L (45-117)
[2024-03-28 08:47] LABS: N-TERMINAL BNP 2945.9 pg/ml (5-450)
[2024-03-28] MEDS ORDERED: SODIUM CHLORIDE 250 ML IV PRN (10:23)
[2024-03-28] MEDS: OSELTAMIVIR PHOSPHATE 30 MG CAPSULE PO ONE (10:50)
[2024-03-28] MEDS: EPOETIN ALFA-EPBX 10,000 UNIT/ML VIAL SQ ONE (17:52)
[2024-03-28] MEDS: ALBUTEROL SO4 2.5/IPRATROPIUM 0.5 INH SOL 3 ML VIAL.NEB. NEB SCH (19:39)
[2024-03-28] MEDS ORDERED: HEPARIN NA (PORCINE) 5,000 UNITS/ML 1ML VIAL SQ SCH (22:00)
[2024-03-28] MEDS: OSELTAMIVIR PHOSPHATE 30 MG CAPSULE PO SCH (22:48)
[2024-03-28] MEDS: APIXABAN 5 MG TABLET PO SCH (22:48)
[2024-03-28] MEDS: MONTELUKAST NA 10 MG TABLET PO SCH (22:49)
[2024-03-29 00:37] VITALS: BMI 23.3
[2024-03-29] MEDS: methylPREDNISolone NA SUCC 40 MG/1 ML VIAL IVPUSH SCH (02:24)
[2024-03-29] MEDS: METOPROLOL TARTRATE 5 MG/5 ML VIAL IVPUSH ONE (04:41)
[2024-03-29 09:36] LABS: HEMOGLOBIN 11.1 GM/dL (11.7-16.9); MCH 30.7 pg (25.7-33.7); MCHC 33.6 g/dl (32.0-35.9); MEAN CELL VOLUME 91.5 fl (80-96); MEAN PLT VOLUME 7.2 fl (7.5-11.1); PLATELET COUNT 299 10^3/uL (134-434); RBC 3.61 M/mm3 (4.00-5.60); RDW 16.3 % (11.9-15.9); WHITE BLOOD COUNT 9.8 K/mm3 (4.0-10.0)
[2024-03-29 09:52] LABS: POTASSIUM 4.8 mmol/L (3.5-5.1)
[2024-03-29] MEDS ORDERED: FUROSEMIDE 20 MG TABLET (FP) PO SCH (10:00)
[2024-03-29 10:07] LABS: CALCIUM 9.3 mg/dL (8.5-10.1)
[2024-03-29 10:10] LABS: ALBUMIN 2.9 g/dl (3.4-5.0)
[2024-03-29 10:11] LABS: BLOOD UREA NITROGEN 62.6 mg/dL (7-18); CREATININE 7.1 mg/dL (0.55-1.3)
[2024-03-29 10:12] LABS: BILIRUBIN,TOTAL 0.4 mg/dL (0.2-1); TOT PROT 6.3 g/dl (6.4-8.2)
[2024-03-29] MEDS: FUROSEMIDE 40 MG/4 ML INJECTABLE VIAL IVPUSH SCH (10:19)
[2024-03-29] MEDS: NIFEdipine E.R. 30 MG TABLET PO SCH (10:19)
[2024-03-29] MEDS: TAMSULOSIN HCL 0.4 MG CAP PO SCH (10:19)
[2024-03-29] MEDS: SEVELAMER CARBONATE 800 MG TAB (FP) PO SCH (10:19)
[2024-03-29] MEDS: FLUTICASONE/UMECLIDIN/VILANTER(200-62.5-25 TRELEGY ELLIPTA) INAHLER IH SCH (10:22)
[2024-03-30 07:41] LABS: HEMATOCRIT 30.6 % (35.4-49); HEMOGLOBIN 9.8 GM/dL (11.7-16.9); MCH 29.9 pg (25.7-33.7); MCHC 32.1 g/dl (32.0-35.9); MEAN CELL VOLUME 93.2 fl (80-96); MEAN PLT VOLUME 7.2 fl (7.5-11.1); PLATELET COUNT 304 10^3/uL (134-434); RBC 3.28 M/mm3 (4.00-5.60); RDW 15.9 % (11.9-15.9); WHITE BLOOD COUNT 10.4 K/mm3 (4.0-10.0)
[2024-03-30 07:44] LABS: CHLORIDE 100 mmol/L (98-107); POTASSIUM 5.2 mmol/L (3.5-5.1); SODIUM 138 mmol/L (136-145)
[2024-03-30 07:50] LABS: ALBUMIN 2.7 g/dl (3.4-5.0); ANION GAP 13 mmol/L (4-13); CO2 25 mmol/L (21-32)
[2024-03-30 07:51] LABS: GLUCOSE,RANDOM 244 mg/dL (74-106)
[2024-03-30 07:54] LABS: SGOT/AST 6 U/L (15-37); SGPT/ALT 13 U/L (13-61)
[2024-03-30 07:55] LABS: ALK PHOS 66 U/L (45-117); BILIRUBIN,TOTAL 0.4 mg/dL (0.2-1); TOT PROT 5.8 g/dl (6.4-8.2)
[2024-03-30 08:06] LABS: BLOOD UREA NITROGEN 98.3 mg/dL (7-18)
[2024-03-30 09:38] LABS: ANISOCYTOSIS 1+; MACROCYTOSIS 2+
[2024-03-30] MEDS: SODIUM ZIRCONIUM CYCLOSILICATE (LOKELMA) 5 GM PACKET PO SCH (15:42)
[2024-03-31] MEDS ORDERED: METOPROLOL TARTRATE 5 MG/5 ML VIAL ONE (18:25)
[2024-04-01] MEDS: METOPROLOL TARTRATE 5 MG/5 ML VIAL IVPUSH PRN ×2 (01:55→12:49)
[2024-04-01] MEDS: METOPROLOL TARTRATE 5 MG/5 ML VIAL IVPUSH SCH (06:54)
[2024-04-01] MEDS: dilTIAZem HCL 30 MG TABLET PO SCH (13:34)
[2024-04-01] MEDS: SODIUM ZIRCONIUM CYCLOSILICATE (LOKELMA) 5 GM PACKET PO SCH (13:34)
[2024-04-01] MEDS: METOPROLOL TARTRATE 5 MG/5 ML VIAL IVPUSH ONE (15:39)
[2024-04-01] MEDS: FUROSEMIDE 40 MG/4 ML INJECTABLE VIAL IVPUSH SCH (17:06)
[2024-04-02 08:16] LABS: CHLORIDE 96 mmol/L (98-107); POTASSIUM 5.2 mmol/L (3.5-5.1); SODIUM 134 mmol/L (136-145)
[2024-04-02 08:19] LABS: ANION GAP 19 mmol/L (4-13); CALCIUM 8.5 mg/dL (8.5-10.1); CO2 18 mmol/L (21-32); GLUCOSE,RANDOM 291 mg/dL (74-106); MAGNESIUM 2.6 mg/dL (1.8-2.4)
[2024-04-02 08:27] LABS: BLOOD UREA NITROGEN 186.5 mg/dL (7-18); CREATININE 12.3 mg/dL (0.55-1.3)
[2024-04-02] MEDS ORDERED: SODIUM CHLORIDE 250 ML IV PRN ×2 (11:55→11:56)
[2024-04-02 13:50] LABS: HEMOGLOBIN 10.2 GM/dL (11.7-16.9); MCH 30.2 pg (25.7-33.7); MEAN CELL VOLUME 91.6 fl (80-96); MEAN PLT VOLUME 7.3 fl (7.5-11.1); PLATELET COUNT 366 10^3/uL (134-434); RBC 3.38 M/mm3 (4.00-5.60); RDW 15.7 % (11.9-15.9); WHITE BLOOD COUNT 9.8 K/mm3 (4.0-10.0)
[2024-04-02] MEDS: ALBUMIN HUMAN 25% 12.5 GM/50 ML VIAL IV SCH (13:50)
[2024-04-02] MEDS: FUROSEMIDE 40 MG/4 ML INJECTABLE VIAL IVPUSH ONE (16:40)
[2024-04-02] MEDS: dilTIAZem HCL 50 MG/10 ML - 10 ML VIAL IVPUSH ONE ×2 (16:45→21:13)
[2024-04-02] MEDS: EPOETIN ALFA-EPBX 10,000 UNIT/ML VIAL SQ ONE (18:12)
[2024-04-02] MEDS ORDERED: AMIODARONE IN DEXTROSE,ISO-OSM 360 MG/200 ML BAG ONE (18:56)
[2024-04-02] MEDS ORDERED: AMIODARONE HCL 150 MG/3 ML VIAL ONE (18:56)
[2024-04-02] MEDS: AMIODARONE IN DEXTROSE,ISO-OSM 150 MG/100 ML BAG IVPB ONE (19:04)
[2024-04-02] MEDS: AMIODARONE IN DEXTROSE,ISO-OSM 360 MG/200 ML BAG IV ONE (19:18)
[2024-04-02 20:08] VITALS: BP 117/88; PULSE 113; RESP 22; TEMP 97.5
[2024-04-03] MEDS ORDERED: AMIODARONE IN DEXTROSE,ISO-OSM 360 MG/200 ML BAG IV SCH (00:10)
== END 2024-04-02 21:17 | disposition short-term general hospital (02) | DRG 190 ==
LOC: JER 07:04 → JERBED 07:19 → J4W 17:15
PROVIDERS: ADMIT Family Medicine; ATTEND Family Medicine
PROC: 5A1D70Z Performance of Urinary Filtration, Intermittent, Less than 6 Hours Per Day (ICD-10-PCS; principal; 2024-03-28)
DX: J44.1 Chronic obstructive pulmonary disease with (acute) exacerbation (principal); J96.01 Acute respiratory failure with hypoxia; N18.6 End stage renal disease; I12.0 Hypertensive chronic kidney disease with stage 5 chronic kidney disease or end stage renal disease; I48.92 Unspecified atrial flutter; I24.89 Other forms of acute ischemic heart disease; Z99.81 Dependence on supplemental oxygen; Z79.01 Long term (current) use of anticoagulants; Z99.2 Dependence on renal dialysis; D64.9 Anemia, unspecified; N40.0 Benign prostatic hyperplasia without lower urinary tract symptoms; J10.1 Influenza due to other identified influenza virus with other respiratory manifestations; I48.0 Paroxysmal atrial fibrillation
CPT/HCPCS: 0241U-QW; 36415; 71045-TC-FY; 80048; 80053; 82550; 82803; 83735; 83880; 84484; 85025; 85027; 86803; 87340; 93005; 93010; 94640; 94660; 99285-25; J0282; P9047; Q5106

== ENCOUNTER 2024-04-10 18:49 | Inpatient (IN) | payer OTHER ==
[2024-04-10 20:25] LABS: HEMOGLOBIN 10.6 GM/dL (11.7-16.9); MCH 29.4 pg (25.7-33.7); MCHC 32.1 g/dl (32.0-35.9); MEAN CELL VOLUME 91.6 fl (80-96); PLATELET COUNT 266 10^3/uL (134-434); RDW 16.5 % (11.9-15.9); WHITE BLOOD COUNT 26.1 K/mm3 (4.0-10.0)
[2024-04-10 20:26] LABS: VENOUS O2 SATURATION 64.3 % (70-80); VENOUS PH 7.377 (7.310-7.410)
[2024-04-10 20:35] LABS: INR 1.42 (0.83-1.09); PROTHROMBIN TIME (PATIENT) 15.9 SEC (9.7-13.0)
[2024-04-10 20:38] LABS: ACTIVATED PTT 27.1 SECONDS (25.2-36.5)
[2024-04-10 20:46] LABS: POTASSIUM 5.2 mmol/L (3.5-5.1)
[2024-04-10 20:51] LABS: ALBUMIN 2.4 g/dl (3.4-5.0); CALCIUM 8.7 mg/dL (8.5-10.1); MAGNESIUM 2.4 mg/dL (1.8-2.4)
[2024-04-10 20:54] LABS: CREATININE 6.7 mg/dL (0.55-1.3)
[2024-04-10 20:55] LABS: BILIRUBIN,TOTAL 0.4 mg/dL (0.2-1); PHOSPHOROUS 6.3 mg/dL (2.5-4.9)
[2024-04-10 20:56] LABS: TOT PROT 5.6 g/dl (6.4-8.2)
[2024-04-10 20:59] LABS: N-TERMINAL BNP 8989.3 pg/ml (5-450)
[2024-04-10 21:01] LABS: LACTIC ACID 2.8 mmol/L (0.4-2.0)
[2024-04-10] MEDS ORDERED: KETOROLAC TROMETHAMINE 15 MG/ML VIAL ONE (21:18)
[2024-04-10 21:26] LABS: ANISOCYTOSIS 2+; MACROCYTOSIS 0
[2024-04-10] MEDS: KETOROLAC TROMETHAMINE 15 MG/ML VIAL IVPUSH ONE (22:32)
[2024-04-10] MEDS ORDERED: VANCOMYCIN 500 MG VIAL (RESTRICTED TO ID ONLY) ONE (23:35)
[2024-04-10] MEDS ORDERED: PIPERACILLIN/TAZOB 2.25 GM 2.25 GM/50 ML BAG IVPB ONE (23:36)
[2024-04-10] MEDS: PIPERACILLIN/TAZOB 2.25 GM 2.25 GM in DEXTROSE 5%-WATER - 50 ML IVPB ONE (23:45)
[2024-04-10] MEDS: SODIUM CHLORIDE 0.9% 500 ML INFUS.BAG IV ONE (23:45)
[2024-04-11] MEDS: VANCOMYCIN 500 MG in DEXTROSE 5%-WATER - 100 ML IVPB ONE (00:44)
[2024-04-11 00:56] LABS: PH,URINE 5.5 (5.0-8.0); URINE APPEARANCE TURBID; URINE BILIRUBIN NEGATIVE (NEGATIVE); URINE COLOR RED; URINE GLUCOSE (UA) NEGATIVE (NEGATIVE); URINE KETONE NEGATIVE (NEGATIVE); URINE LEUK ESTERASE 3+ (NEGATIVE); URINE NITRITE POSITIVE (NEGATIVE); URINE PROTEIN 2+ (NEGATIVE); URINE UROBILINOGEN 0.2 mg/dL (0.2-1.0)
[2024-04-11 03:52] LABS: EPI CELLS 298.7 /uL (0-25.1); HYALINE CASTS 26.06 /uL (0-3.1); URINE BACTERIA 1475.2 /uL (0-1359); URINE RBC 20.7 /uL (0-23.9); URINE WBC 337.8 /uL (0-25.8); YEAST NONE SEEN (NEGATIVE)
[2024-04-11] MEDS: INSULIN ASPART SLIDING SCALE (NOVOLOG) 1 VIAL SQ SCH (07:02)
[2024-04-11 08:27] LABS: HEMATOCRIT 27.3 % (35.4-49); HEMOGLOBIN 8.5 GM/dL (11.7-16.9); MCH 28.9 pg (25.7-33.7); MCHC 30.9 g/dl (32.0-35.9); MEAN CELL VOLUME 93.3 fl (80-96); MEAN PLT VOLUME 8.2 fl (7.5-11.1); PLATELET COUNT 240 10^3/uL (134-434); RBC 2.93 M/mm3 (4.00-5.60); RDW 16.2 % (11.9-15.9)
[2024-04-11] MEDS: ALBUTEROL SO4 2.5/IPRATROPIUM 0.5 INH SOL 3 ML VIAL.NEB. NEB SCH (08:45)
[2024-04-11 09:35] LABS: POTASSIUM 4.7 mmol/L (3.5-5.1)
[2024-04-11 09:45] LABS: CALCIUM 8.3 mg/dL (8.5-10.1)
[2024-04-11 09:46] LABS: ALBUMIN 2.1 g/dl (3.4-5.0)
[2024-04-11 09:50] LABS: BILIRUBIN,TOTAL 0.4 mg/dL (0.2-1); TOT PROT 4.7 g/dl (6.4-8.2)
[2024-04-11 09:57] LABS: ANISOCYTOSIS 1+; MACROCYTOSIS 1+
[2024-04-11] MEDS ORDERED: FLUTICASONE/UMECLIDIN/VILANTER(200-62.5-25 TRELEGY ELLIPTA) INAHLER IH SCH (10:00)
[2024-04-11] MEDS: AMIODARONE HCL 200 MG TABLET PO SCH (10:37)
[2024-04-11] MEDS: NICOTINE 14 MG/24 HOURS TOPICAL PATCH TD SCH (10:37)
[2024-04-11] MEDS: TAMSULOSIN HCL 0.4 MG CAP PO SCH (10:37)
[2024-04-11] MEDS: LIDOCAINE 4% PATCH TP SCH (10:37)
[2024-04-11] MEDS: APIXABAN 5 MG TABLET PO SCH (10:38)
[2024-04-11] MEDS: NIFEdipine E.R. 30 MG TABLET PO SCH (10:38)
[2024-04-11] MEDS: LACTATED RINGERS SOLUTION 1,000 ML/1,000 ML INFUS.BAG IV SCH (11:33)
[2024-04-11] MEDS: VANCOMYCIN ORAL SOLUTION 125 MG/2.5 ML PO SCH (12:32)
[2024-04-11] MEDS: methylPREDNISolone NA SUCC 40 MG/1 ML VIAL IVPUSH SCH (13:58)
[2024-04-11] MEDS: PIPERACILLIN/TAZOB 2.25 GM 2.25 GM/50 ML BAG IVPB SCH (14:48)
[2024-04-11] MEDS ORDERED: SODIUM CHLORIDE 250 ML IV PRN (16:15)
[2024-04-11] MEDS: EPOETIN ALFA-EPBX 4,000 UNIT/ML VIAL SQ ONE (20:14)
[2024-04-11] MEDS: MONTELUKAST NA 10 MG TABLET PO SCH (22:25)
[2024-04-11] MEDS: LIDOCAINE PATCH REMOVAL MC SCH (22:26)
[2024-04-11] MEDS: BUDESONIDE/FORMETEROL FUMARATE 160/4.5 mcg INHALER IH SCH (22:28)
[2024-04-12] MEDS: ACETAMINOPHEN 325 MG TABLET (FP) PO ONE (06:39)
[2024-04-12] MEDS ORDERED: VANCOMYCIN/WATER FOR INJ (PEG) 1,000 MG/200 ML BAG IVPB ONE (08:30)
[2024-04-12] MEDS: PIPERACILLIN/TAZOB 2.25 GM 2.25 GM/50 ML BAG IVPB SCH (10:00)
[2024-04-12] MEDS: guaiFENesin/CODEINE 10 ML UNIT-DOSE CUPS PO PRN (10:03)
[2024-04-12] MEDS: VANCOMYCIN/WATER FOR INJ (PEG) 1,000 MG/200 ML BAG IVPB ONE (11:35)
[2024-04-12] MEDS ORDERED: BACITRACIN ZINC 15 GM TUBE TOPICAL OINTMENT TP ONE (22:07)
[2024-04-12] MEDS: BACITRACIN ZINC 15 GM TUBE TOPICAL OINTMENT TP SCH (23:39)
[2024-04-12] MEDS: INSULIN (LEVEMIR) 100 UNITS/ML UNITS SQ SCH (23:41)
[2024-04-13 08:28] LABS: HEMATOCRIT 26.9 % (35.4-49); HEMOGLOBIN 8.7 GM/dL (11.7-16.9); MCH 29.9 pg (25.7-33.7); MCHC 32.5 g/dl (32.0-35.9); MEAN CELL VOLUME 92.1 fl (80-96); MEAN PLT VOLUME 7.5 fl (7.5-11.1); PLATELET COUNT 276 10^3/uL (134-434); RBC 2.92 M/mm3 (4.00-5.60); WHITE BLOOD COUNT 18.9 K/mm3 (4.0-10.0)
[2024-04-13 08:35] LABS: POTASSIUM 5.2 mmol/L (3.5-5.1)
[2024-04-13 08:45] LABS: BLOOD UREA NITROGEN 74.6 mg/dL (7-18); CALCIUM 8.7 mg/dL (8.5-10.1)
[2024-04-13 08:47] LABS: CREATININE 6.1 mg/dL (0.55-1.3)
[2024-04-13 08:49] LABS: BILIRUBIN,TOTAL 0.4 mg/dL (0.2-1)
[2024-04-13 08:50] LABS: TOT PROT 5.2 g/dl (6.4-8.2)
[2024-04-13 09:25] LABS: ANISOCYTOSIS 0; MACROCYTOSIS 0
[2024-04-13] MEDS: NAFCILLIN - 2 GM in DEXTROSE 5%-WATER - 100 ML IVPB SCH (15:08)
[2024-04-13] MEDS ORDERED: SODIUM CHLORIDE 250 ML IV PRN (15:46)
[2024-04-13] MEDS: SODIUM ZIRCONIUM CYCLOSILICATE (LOKELMA) 5 GM PACKET PO SCH (17:45)
[2024-04-14 08:02] LABS: HEMATOCRIT 28.4 % (35.4-49); HEMOGLOBIN 9.2 GM/dL (11.7-16.9); MCH 29.8 pg (25.7-33.7); MCHC 32.4 g/dl (32.0-35.9); MEAN CELL VOLUME 91.9 fl (80-96); MEAN PLT VOLUME 7.3 fl (7.5-11.1); PLATELET COUNT 279 10^3/uL (134-434); RBC 3.09 M/mm3 (4.00-5.60); RDW 16.7 % (11.9-15.9); WHITE BLOOD COUNT 13.2 K/mm3 (4.0-10.0)
[2024-04-14 08:42] LABS: CHLORIDE 92 mmol/L (98-107); SODIUM 131 mmol/L (136-145)
[2024-04-14 08:45] LABS: POTASSIUM 6.3 mmol/L (3.5-5.1)
[2024-04-14 08:50] LABS: ALBUMIN 2.1 g/dl (3.4-5.0); ANION GAP 15 mmol/L (4-13); CALCIUM 8.6 mg/dL (8.5-10.1); CO2 25 mmol/L (21-32)
[2024-04-14 08:51] LABS: BLOOD UREA NITROGEN 95.9 mg/dL (7-18); GLUCOSE,RANDOM 136 mg/dL (74-106)
[2024-04-14 08:53] LABS: CREATININE 7.2 mg/dL (0.55-1.3); SGOT/AST 4 U/L (15-37); SGPT/ALT 12 U/L (13-61)
[2024-04-14 08:54] LABS: TOT PROT 5.5 g/dl (6.4-8.2)
[2024-04-14 08:57] LABS: ALK PHOS 90 U/L (45-117)
[2024-04-14 09:41] LABS: ANISOCYTOSIS 0; MACROCYTOSIS 0
[2024-04-14] MEDS: EPOETIN ALFA-EPBX 10,000 UNIT/ML VIAL IVPUSH ONE (15:19)
[2024-04-15 09:18] LABS: CHLORIDE 97 mmol/L (98-107); POTASSIUM 3.9 mmol/L (3.5-5.1); SODIUM 136 mmol/L (136-145)
[2024-04-15 09:25] LABS: ALBUMIN 1.9 g/dl (3.4-5.0); ANION GAP 12 mmol/L (4-13); CO2 27 mmol/L (21-32)
[2024-04-15 09:28] LABS: CREATININE 4.2 mg/dL (0.55-1.3); SGOT/AST 7 U/L (15-37); SGPT/ALT 12 U/L (13-61)
[2024-04-15 09:29] LABS: BILIRUBIN,TOTAL 0.9 mg/dL (0.2-1)
[2024-04-15 09:31] LABS: ALK PHOS 86 U/L (45-117)
[2024-04-15 09:41] LABS: BLOOD UREA NITROGEN 54.1 mg/dL (7-18); GLUCOSE,RANDOM 45 mg/dL (74-106)
[2024-04-15] MEDS ORDERED: SODIUM CHLORIDE 250 ML IV PRN ×2 (12:34→22:46)
[2024-04-15] MEDS: NAFCILLIN - 2 GM in DEXTROSE 5%-WATER 100 ML IVPB SCH (13:14)
[2024-04-16] MEDS: LIDOCAINE PATCH REMOVAL MC SCH ×2 (01:23→22:16)
[2024-04-16] MEDS: NAFCILLIN - 2 GM in DEXTROSE 5%-WATER 100 ML IVPB SCH (01:39)
[2024-04-16] MEDS: INSULIN (LEVEMIR) 100 UNITS/ML UNITS SQ SCH (06:13)
[2024-04-16] MEDS: INSULIN ASPART SLIDING SCALE (NOVOLOG) 1 VIAL SQ SCH (06:13)
[2024-04-16] MEDS: ALBUTEROL SO4 2.5/IPRATROPIUM 0.5 INH SOL 3 ML VIAL.NEB. NEB SCH (07:50)
[2024-04-16] MEDS: EPOETIN ALFA-EPBX 10,000 UNIT/ML VIAL SQ ONE (10:30)
[2024-04-16] MEDS: ALBUMIN HUMAN 25% 12.5 GM/50 ML VIAL IV SCH (11:03)
[2024-04-16] MEDS ORDERED: KETOROLAC TROMETHAMINE 15 MG/ML VIAL IVPUSH PRN (11:14)
[2024-04-16 11:49] LABS: HEMATOCRIT 21.9 % (35.4-49); MCH 29.2 pg (25.7-33.7); MCHC 31.7 g/dl (32.0-35.9); MEAN CELL VOLUME 92.1 fl (80-96); MEAN PLT VOLUME 7.9 fl (7.5-11.1); PLATELET COUNT 237 10^3/uL (134-434); RBC 2.38 M/mm3 (4.00-5.60); RDW 16.5 % (11.9-15.9); WHITE BLOOD COUNT 8.4 K/mm3 (4.0-10.0)
[2024-04-16 11:53] LABS: HEMOGLOBIN 6.9 GM/dL (11.7-16.9)
[2024-04-16 12:25] LABS: ANISOCYTOSIS 1+; MACROCYTOSIS 2+; OVALOCYTE 1+
[2024-04-16] MEDS ORDERED: EPOETIN ALFA-EPBX 10,000 UNIT/ML VIAL SQ ONE (12:34)
[2024-04-16] MEDS ORDERED: HEPARIN NA (PORCINE) 5,000 UNITS/ML 1ML VIAL IVPUSH ONE (12:34)
[2024-04-16] MEDS ORDERED: ALBUMIN HUMAN 25% 12.5 GM/50 ML VIAL IV SCH (12:45)
[2024-04-16] MEDS: BACITRACIN ZINC 15 GM TUBE TOPICAL OINTMENT TP SCH (12:59)
[2024-04-16] MEDS: NIFEdipine E.R. 30 MG TABLET PO SCH (12:59)
[2024-04-16] MEDS: APIXABAN 5 MG TABLET PO SCH (13:00)
[2024-04-16] MEDS: predniSONE 20 MG TABLET (UD) PO SCH (13:00)
[2024-04-16] MEDS: LIDOCAINE 4% PATCH TP SCH (13:00)
[2024-04-16] MEDS: TAMSULOSIN HCL 0.4 MG CAP PO SCH (13:00)
[2024-04-16] MEDS: NICOTINE 14 MG/24 HOURS TOPICAL PATCH TD SCH (13:00)
[2024-04-16] MEDS: AMIODARONE HCL 200 MG TABLET PO SCH (13:01)
[2024-04-16] MEDS: BUDESONIDE/FORMETEROL FUMARATE 160/4.5 mcg INHALER IH SCH (13:02)
[2024-04-16] MEDS ORDERED: AMIODARONE IN DEXTROSE,ISO-OSM 360 MG/200 ML BAG IV SCH (18:45)
[2024-04-16] MEDS ORDERED: AMIODARONE IN DEXTROSE,ISO-OSM 360 MG/200 ML BAG ONE (19:55)
[2024-04-16] MEDS ORDERED: AMIODARONE IN DEXTROSE,ISO-OSM 150 MG/100 ML BAG ONE (19:59)
[2024-04-16] MEDS: AMIODARONE IN DEXTROSE,ISO-OSM 150 MG/100 ML BAG IVPB ONE (20:03)
[2024-04-16] MEDS: AMIODARONE IN DEXTROSE,ISO-OSM 360 MG/200 ML BAG IV SCH (20:30)
[2024-04-16] MEDS: MONTELUKAST NA 10 MG TABLET PO SCH (21:29)
[2024-04-16] MEDS: CHLORHEXIDINE GLUCONATE 4% CLEANSER FOR DECOLONIZATION TP SCH (21:29)
[2024-04-16] MEDS: MUPIROCIN 2% TOPICAL OINTMENT FOR DECOLONIZATION NS SCH (21:30)
[2024-04-16 23:13] LABS: HEMATOCRIT 24.6 % (35.4-49); HEMOGLOBIN 7.8 GM/dL (11.7-16.9); MCH 29.4 pg (25.7-33.7); MCHC 31.6 g/dl (32.0-35.9); MEAN CELL VOLUME 93.2 fl (80-96); MEAN PLT VOLUME 7.6 fl (7.5-11.1); PLATELET COUNT 214 10^3/uL (134-434); RBC 2.64 M/mm3 (4.00-5.60); WHITE BLOOD COUNT 9.9 K/mm3 (4.0-10.0)
[2024-04-16 23:43] LABS: POTASSIUM 3.6 mmol/L (3.5-5.1)
[2024-04-16 23:45] LABS: ALBUMIN 1.8 g/dl (3.4-5.0); BLOOD UREA NITROGEN 41.6 mg/dL (7-18); CALCIUM 7.3 mg/dL (8.5-10.1)
[2024-04-16 23:48] LABS: ANISOCYTOSIS 2+; CREATININE 3.4 mg/dL (0.55-1.3); MACROCYTOSIS 0; TARGET CELLS 1+
[2024-04-16 23:50] LABS: TOT PROT 4.1 g/dl (6.4-8.2)
[2024-04-17] MEDS: NAFCILLIN - 2 GM in DEXTROSE 5%-WATER 100 ML IVPB SCH (01:40)
[2024-04-17] MEDS: AMIODARONE IN DEXTROSE,ISO-OSM 360 MG/200 ML BAG IV SCH (02:20)
[2024-04-17] MEDS: PANTOPRAZOLE SODIUM 80 MG in SODIUM CHLORIDE 100 ML IVPB SCH (05:16)
[2024-04-17] MEDS: INSULIN ASPART SLIDING SCALE (NOVOLOG) 1 VIAL SQ SCH (06:04)
[2024-04-17] MEDS: INSULIN (LEVEMIR) 100 UNITS/ML UNITS SQ SCH (06:43)
[2024-04-17] MEDS ORDERED: INSULIN ASPART SLIDING SCALE (NOVOLOG) 1 VIAL SQ SCH (07:00)
[2024-04-17] MEDS: ALBUTEROL SO4 2.5/IPRATROPIUM 0.5 INH SOL 3 ML VIAL.NEB. NEB SCH (07:20)
[2024-04-17 07:25] LABS: HEMATOCRIT 24.1 % (35.4-49); HEMOGLOBIN 8.1 GM/dL (11.7-16.9); MCH 30.7 pg (25.7-33.7); MCHC 33.5 g/dl (32.0-35.9); MEAN CELL VOLUME 91.7 fl (80-96); MEAN PLT VOLUME 7.8 fl (7.5-11.1); PLATELET COUNT 190 10^3/uL (134-434); RBC 2.63 M/mm3 (4.00-5.60); WHITE BLOOD COUNT 7.6 K/mm3 (4.0-10.0)
[2024-04-17 07:40] LABS: CHLORIDE 114 mmol/L (98-107); SODIUM 144 mmol/L (136-145)
[2024-04-17 07:44] LABS: BLOOD UREA NITROGEN 34.4 mg/dL (7-18)
[2024-04-17 07:48] LABS: SGPT/ALT 13 U/L (13-61)
[2024-04-17 07:49] LABS: BILIRUBIN,TOTAL 0.9 mg/dL (0.2-1); CO2 21 mmol/L (21-32); TOT PROT 2.9 g/dl (6.4-8.2)
[2024-04-17 07:50] LABS: CREATININE 2.7 mg/dL (0.55-1.3)
[2024-04-17 07:51] LABS: ALK PHOS 37 U/L (45-117); GLUCOSE,RANDOM 84 mg/dL (74-106); SGOT/AST 8 U/L (15-37)
[2024-04-17 07:54] LABS: ALBUMIN 1.3 g/dl (3.4-5.0); ANION GAP 8 mmol/L (4-13); CALCIUM 5.5 mg/dL (8.5-10.1); POTASSIUM 2.5 mmol/L (3.5-5.1)
[2024-04-17] MEDS: KCL 10 MEQ IVPB 10 MEQ/100 ML INFUS.BAG IVPB SCH (08:33)
[2024-04-17] MEDS: TAMSULOSIN HCL 0.4 MG CAP PO SCH (08:34)
[2024-04-17] MEDS ORDERED: KCL 20 MEQ PREMIX BAG 20 MEQ/100 ML INFUS.BAG IVPB SCH (08:45)
[2024-04-17 08:47] LABS: MAGNESIUM 1.3 mg/dL (1.8-2.4)
[2024-04-17] MEDS: MAGNESIUM 1GM/D5W - 1 GM/100 ML IVPB IVPB ONE (09:50)
[2024-04-17] MEDS: LIDOCAINE 4% PATCH TP SCH (10:06)
[2024-04-17] MEDS: predniSONE 20 MG TABLET (UD) PO SCH (10:07)
[2024-04-17] MEDS: BACITRACIN ZINC 15 GM TUBE TOPICAL OINTMENT TP SCH (10:09)
[2024-04-17] MEDS: NICOTINE 14 MG/24 HOURS TOPICAL PATCH TD SCH (10:11)
[2024-04-17] MEDS: BUDESONIDE/FORMETEROL FUMARATE 160/4.5 mcg INHALER IH SCH (10:17)
[2024-04-17] MEDS: MAGNESIUM 2GM/50ML STERILE WATER IVPB IVPB ONE (11:45)
[2024-04-17] MEDS ORDERED: DEXTROSE 50%-WATER 25 GM/50 ML DISP.SYRIN ONE (12:03)
[2024-04-17] MEDS ORDERED: DEXTROSE 50%-WATER - 25 GM/50 ML VIAL IVPUSH ONE (12:05)
[2024-04-17] MEDS: POTASSIUM CHLORIDE ORAL LIQUID 20 MEQ/15 ML PO ONE ×2 (14:22→16:09)
[2024-04-17] MEDS: IRON SUCROSE INJECTION 200 MG in SODIUM CHLORIDE 100 ML IVPB ONE (15:24)
[2024-04-17] MEDS: AMIODARONE HCL 200 MG TABLET PO ONE (15:28)
[2024-04-17] MEDS: MAGNESIUM 1GM/D5W 100ML - 100 ML IVPB IVPB ONE (15:28)
[2024-04-17] MEDS: NIFEdipine E.R. 30 MG TABLET PO ONE (16:53)
[2024-04-17] MEDS ORDERED: INSULIN ASPART SLIDING SCALE (NOVOLOG) 1 VIAL SQ ONE (18:02)
[2024-04-17] MEDS: ACETAMINOPHEN 1000 MG/100 ML BAG IVPB ONE (20:33)
[2024-04-17 21:07] LABS: POTASSIUM 5.1 mmol/L (3.5-5.1)
[2024-04-17 21:10] LABS: BLOOD UREA NITROGEN 52.1 mg/dL (7-18); MAGNESIUM 2.5 mg/dL (1.8-2.4)
[2024-04-17 21:11] LABS: ALBUMIN 1.9 g/dl (3.4-5.0); CALCIUM 7.9 mg/dL (8.5-10.1)
[2024-04-17 21:13] LABS: CREATININE 4.8 mg/dL (0.55-1.3); PHOSPHOROUS 4.5 mg/dL (2.5-4.9)
[2024-04-17 21:14] LABS: BILIRUBIN,TOTAL 1.4 mg/dL (0.2-1); TOT PROT 4.7 g/dl (6.4-8.2)
[2024-04-17] MEDS: MONTELUKAST NA 10 MG TABLET PO SCH (21:53)
[2024-04-17] MEDS: LIDOCAINE PATCH REMOVAL MC SCH (21:54)
[2024-04-17] MEDS: AMIODARONE HCL 200 MG TABLET PO SCH (21:54)
[2024-04-17] MEDS ORDERED: LIDOCAINE PATCH REMOVAL MC SCH (22:00)
[2024-04-18] MEDS: ACETAMINOPHEN 500 MG TABLET (FP) PO ONE (05:53)
[2024-04-18 06:47] LABS: BASO % 0.1 % (0-2.0); EOS % 0.6 % (0-4.5); HEMATOCRIT 28.7 % (35.4-49); HEMOGLOBIN 9.5 GM/dL (11.7-16.9); LYMPH % 7.9 % (8-40); MCH 30.2 pg (25.7-33.7); MCHC 33.1 g/dl (32.0-35.9); MEAN PLT VOLUME 7.6 fl (7.5-11.1); MONO % 2.8 % (3.8-10.2); NEUT % 88.6 % (42.8-82.8); PLATELET COUNT 240 10^3/uL (134-434); RBC 3.15 M/mm3 (4.00-5.60); RDW 15.3 % (11.9-15.9); WHITE BLOOD COUNT 7.1 K/mm3 (4.0-10.0)
[2024-04-18 07:05] LABS: POTASSIUM 4.7 mmol/L (3.5-5.1)
[2024-04-18 07:08] LABS: ALBUMIN 1.8 g/dl (3.4-5.0); BLOOD UREA NITROGEN 57.1 mg/dL (7-18); CALCIUM 7.8 mg/dL (8.5-10.1); MAGNESIUM 2.5 mg/dL (1.8-2.4)
[2024-04-18 07:11] LABS: CREATININE 5.4 mg/dL (0.55-1.3)
[2024-04-18 07:12] LABS: PHOSPHOROUS 4.9 mg/dL (2.5-4.9)
[2024-04-18 07:13] LABS: BILIRUBIN,TOTAL 1.2 mg/dL (0.2-1); TOT PROT 4.3 g/dl (6.4-8.2)
[2024-04-18] MEDS: LIDOCAINE 4% PATCH TP SCH (09:18)
[2024-04-18] MEDS: PANTOPRAZOLE SODIUM 40 MG VIAL IVPUSH SCH (09:23)
[2024-04-18] MEDS: AMIODARONE HCL INJECTION 150 MG in DEXTROSE 5%-WATER - 100 ML IVPB ONE (14:30)
[2024-04-18] MEDS ORDERED: SODIUM CHLORIDE 250 ML IV PRN (14:38)
[2024-04-18] MEDS ORDERED: AMIODARONE IN DEXTROSE,ISO-OSM 150 MG/100 ML BAG ONE ×2 (14:40→18:21)
[2024-04-18] MEDS: EPOETIN ALFA-EPBX 10,000 UNIT/ML VIAL SQ SCH (15:19)
[2024-04-18] MEDS ORDERED: dilTIAZem HCL 125 MG/25 ML - 25 ML VIAL ONE (17:33)
[2024-04-18] MEDS: dilTIAZem HCL 50 MG/10 ML - 10 ML VIAL IVPUSH ONE (17:35)
[2024-04-18] MEDS ORDERED: AMIODARONE IN DEXTROSE,ISO-OSM 360 MG/200 ML BAG ONE (18:03)
[2024-04-18] MEDS: AMIODARONE IN DEXTROSE,ISO-OSM 150 MG/100 ML BAG IVPB ONE (18:20)
[2024-04-18] MEDS: AMIODARONE IN DEXTROSE,ISO-OSM 360 MG/200 ML BAG IV SCH (18:40)
[2024-04-18] MEDS: LIDOCAINE PATCH REMOVAL MC SCH (21:37)
[2024-04-18] MEDS ORDERED: MELATONIN 5 MG TABLETS PO SCH (22:33)
[2024-04-18] MEDS: guaiFENesin 200 MG/10 ML 10 ML UNIT-DOSE CUPS PO PRN (22:51)
[2024-04-18] MEDS: MELATONIN 5 MG TABLETS PO SCH (22:52)
[2024-04-19] MEDS: AMIODARONE IN DEXTROSE,ISO-OSM 360 MG/200 ML BAG IV SCH
[2024-04-19 07:07] LABS: POTASSIUM 3.8 mmol/L (3.5-5.1)
[2024-04-19 07:09] LABS: CALCIUM 7.8 mg/dL (8.5-10.1)
[2024-04-19 07:10] LABS: ALBUMIN 1.7 g/dl (3.4-5.0); BLOOD UREA NITROGEN 36.3 mg/dL (7-18); MAGNESIUM 2.3 mg/dL (1.8-2.4)
[2024-04-19 07:13] LABS: CREATININE 4.5 mg/dL (0.55-1.3); PHOSPHOROUS 4.8 mg/dL (2.5-4.9)
[2024-04-19 07:14] LABS: BILIRUBIN,TOTAL 1.3 mg/dL (0.2-1); TOT PROT 4.4 g/dl (6.4-8.2)
[2024-04-19 07:18] LABS: BASO % 0.7 % (0-2.0); EOS % 0.5 % (0-4.5); HEMATOCRIT 29.5 % (35.4-49); HEMOGLOBIN 9.8 GM/dL (11.7-16.9); LYMPH % 12.8 % (8-40); MCH 30.5 pg (25.7-33.7); MCHC 33.2 g/dl (32.0-35.9); MEAN CELL VOLUME 91.9 fl (80-96); MEAN PLT VOLUME 7.8 fl (7.5-11.1); MONO % 3.4 % (3.8-10.2); NEUT % 82.6 % (42.8-82.8); PLATELET COUNT 230 10^3/uL (134-434); RBC 3.21 M/mm3 (4.00-5.60); RDW 15.6 % (11.9-15.9); WHITE BLOOD COUNT 8.3 K/mm3 (4.0-10.0)
[2024-04-19] MEDS ORDERED: MELATONIN 5 MG TABLETS PO SCH (22:00)
[2024-04-20 07:00] LABS: BASO % 0.3 % (0-2.0); EOS % 1.3 % (0-4.5); HEMATOCRIT 29.3 % (35.4-49); HEMOGLOBIN 9.9 GM/dL (11.7-16.9); LYMPH % 7.9 % (8-40); MCH 30.7 pg (25.7-33.7); MCHC 33.6 g/dl (32.0-35.9); MEAN CELL VOLUME 91.4 fl (80-96); MEAN PLT VOLUME 7.8 fl (7.5-11.1); MONO % 2.1 % (3.8-10.2); NEUT % 88.4 % (42.8-82.8); PLATELET COUNT 224 10^3/uL (134-434); RBC 3.21 M/mm3 (4.00-5.60); WHITE BLOOD COUNT 6.3 K/mm3 (4.0-10.0)
[2024-04-20 07:02] LABS: POTASSIUM 3.7 mmol/L (3.5-5.1)
[2024-04-20 07:04] LABS: ALBUMIN 1.6 g/dl (3.4-5.0); CALCIUM 7.5 mg/dL (8.5-10.1)
[2024-04-20 07:05] LABS: MAGNESIUM 2.1 mg/dL (1.8-2.4)
[2024-04-20 07:07] LABS: CREATININE 5.8 mg/dL (0.55-1.3)
[2024-04-20 07:08] LABS: PHOSPHOROUS 5.2 mg/dL (2.5-4.9)
[2024-04-20 07:09] LABS: BILIRUBIN,TOTAL 1.2 mg/dL (0.2-1); TOT PROT 4.6 g/dl (6.4-8.2)
[2024-04-20] MEDS: ALBUTEROL SO4 2.5/IPRATROPIUM 0.5 INH SOL 3 ML VIAL.NEB. NEB SCH (07:30)
[2024-04-20] MEDS ORDERED: AMIODARONE IN DEXTROSE,ISO-OSM 360 MG/200 ML BAG IV SCH (07:35)
[2024-04-20] MEDS: AMIODARONE HCL 200 MG TABLET PO SCH (09:55)
[2024-04-20] MEDS: NIFEdipine E.R. 30 MG TABLET PO SCH ×2 (09:55→14:19)
[2024-04-20] MEDS: TAMSULOSIN HCL 0.4 MG CAP PO SCH (09:55)
[2024-04-20] MEDS: NAFCILLIN - 2 GM in DEXTROSE 5%-WATER 100 ML IVPB SCH (09:55)
[2024-04-20] MEDS: predniSONE 20 MG TABLET (UD) PO SCH (09:55)
[2024-04-20] MEDS: PANTOPRAZOLE SODIUM 40 MG VIAL IVPUSH SCH (09:55)
[2024-04-20] MEDS: LIDOCAINE 4% PATCH TP SCH ×2 (09:56)
[2024-04-20] MEDS: BUDESONIDE/FORMETEROL FUMARATE 160/4.5 mcg INHALER IH SCH (09:56)
[2024-04-20] MEDS: BACITRACIN ZINC 15 GM TUBE TOPICAL OINTMENT TP SCH (09:57)
[2024-04-20] MEDS: NICOTINE 14 MG/24 HOURS TOPICAL PATCH TD SCH (09:57)
[2024-04-20] MEDS: INSULIN ASPART SLIDING SCALE (NOVOLOG) 1 VIAL SQ SCH (11:50)
[2024-04-20] MEDS ORDERED: SODIUM CHLORIDE 250 ML IV PRN (13:45)
[2024-04-20 15:16] VITALS: BMI 24.7
[2024-04-20] MEDS ORDERED: METOPROLOL TARTRATE 5 MG/5 ML VIAL IVPUSH PRN (16:16)
[2024-04-20] MEDS: NYSTATIN 500,000 UNITS/5 ML SUSPENSION PO SCH (18:14)
[2024-04-20 18:48] LABS: EPI CELLS 4 /uL (0-25.1); HYALINE CASTS 0 /uL (0-3.1); URINE APPEARANCE CLEAR; URINE BACTERIA 7 /uL (0-1359); URINE BILIRUBIN NEGATIVE (NEGATIVE); URINE COLOR YELLOW; URINE GLUCOSE (UA) NEGATIVE (NEGATIVE); URINE KETONE NEGATIVE (NEGATIVE); URINE LEUK ESTERASE 2+ (NEGATIVE); URINE NITRITE NEGATIVE (NEGATIVE); URINE PROTEIN 2+ (NEGATIVE); URINE RBC 22 /uL (0-23.9); URINE UROBILINOGEN 0.2 mg/dL (0.2-1.0); URINE WBC 87 /uL (0-25.8)
[2024-04-20] MEDS: INSULIN (LEVEMIR) 100 UNITS/ML UNITS SQ SCH (21:41)
[2024-04-20] MEDS: METOPROLOL TARTRATE 25 MG TABLET (FP) PO SCH (21:55)
[2024-04-20] MEDS: guaiFENesin 200 MG/10 ML 10 ML UNIT-DOSE CUPS PO PRN (21:56)
[2024-04-20] MEDS: MONTELUKAST NA 10 MG TABLET PO SCH (21:56)
[2024-04-20] MEDS: MELATONIN 5 MG TABLETS PO SCH (21:56)
[2024-04-20] MEDS: LIDOCAINE PATCH REMOVAL MC SCH ×3 (21:56)
[2024-04-21 07:47] LABS: BASO % 0.2 % (0-2.0); EOS % 0.7 % (0-4.5); HEMATOCRIT 27.1 % (35.4-49); HEMOGLOBIN 9.2 GM/dL (11.7-16.9); LYMPH % 8.5 % (8-40); MCH 30.9 pg (25.7-33.7); MCHC 33.8 g/dl (32.0-35.9); MEAN CELL VOLUME 91.2 fl (80-96); MEAN PLT VOLUME 7.6 fl (7.5-11.1); MONO % 4.4 % (3.8-10.2); NEUT % 86.2 % (42.8-82.8); PLATELET COUNT 202 10^3/uL (134-434); RBC 2.97 M/mm3 (4.00-5.60); RDW 16.1 % (11.9-15.9); WHITE BLOOD COUNT 5.9 K/mm3 (4.0-10.0)
[2024-04-21 07:55] LABS: POTASSIUM 3.6 mmol/L (3.5-5.1)
[2024-04-21 08:03] LABS: ALBUMIN 1.4 g/dl (3.4-5.0); BLOOD UREA NITROGEN 52.7 mg/dL (7-18)
[2024-04-21 08:05] LABS: BILIRUBIN,TOTAL 1.1 mg/dL (0.2-1); TOT PROT 4.1 g/dl (6.4-8.2)
[2024-04-21 08:06] LABS: CALCIUM 7.5 mg/dL (8.5-10.1)
[2024-04-21 08:07] LABS: CREATININE 7.1 mg/dL (0.55-1.3); MAGNESIUM 2.2 mg/dL (1.8-2.4); PHOSPHOROUS 6.6 mg/dL (2.5-4.9)
[2024-04-21] MEDS: ALBUMIN HUMAN 25% 12.5 GM/50 ML VIAL IV SCH (09:43)
[2024-04-21] MEDS: EPOETIN ALFA-EPBX 10,000 UNIT/ML VIAL IVPUSH ONE (09:44)
[2024-04-21 11:41] LABS: N-TERMINAL BNP 5324.4 pg/ml (5-450)
[2024-04-22] MEDS: MAG HYDROX/ALH/SMC/DPHA/LIDO 240 ML MOUTHWASH MM SCH (13:06)
[2024-04-23] MEDS ORDERED: SODIUM CHLORIDE 250 ML IV PRN (15:12)
[2024-04-23 15:15] LABS: HEMATOCRIT 27.3 % (35.4-49); HEMOGLOBIN 8.9 GM/dL (11.7-16.9); MCH 30.2 pg (25.7-33.7); MCHC 32.6 g/dl (32.0-35.9); MEAN CELL VOLUME 92.6 fl (80-96); PLATELET COUNT 196 10^3/uL (134-434); RBC 2.94 M/mm3 (4.00-5.60); RDW 17.2 % (11.9-15.9); WHITE BLOOD COUNT 7.3 K/mm3 (4.0-10.0)
[2024-04-23 15:41] LABS: POTASSIUM 3.3 mmol/L (3.5-5.1)
[2024-04-23 15:42] LABS: ALBUMIN 1.3 g/dl (3.4-5.0); CALCIUM 7.4 mg/dL (8.5-10.1)
[2024-04-23 15:44] LABS: BLOOD UREA NITROGEN 42.8 mg/dL (7-18)
[2024-04-23 15:48] LABS: BILIRUBIN,TOTAL 1.2 mg/dL (0.2-1); TOT PROT 4.2 g/dl (6.4-8.2)
[2024-04-23] MEDS: EPOETIN ALFA-EPBX 10,000 UNIT/ML VIAL SQ ONE (17:24)
[2024-04-23] MEDS: VITAMIN B COMP W-C 1 EA TABLET (NEPHRO-VITE) PO SCH (18:37)
[2024-04-23] MEDS: AMINO ACIDS/PROTEIN HYDROLYS 30 ML LIQUID.PKT PO SCH (18:37)
[2024-04-24] MEDS: ACETAMINOPHEN 1000 MG/100 ML BAG IVPB ONE (02:51)
[2024-04-24] MEDS: DEXTROSE 50%-WATER 25 GM/50 ML DISP.SYRIN IVPUSH ONE (06:33)
[2024-04-24] MEDS: DEXTROSE 50%-WATER - 25 GM/50 ML VIAL IVPUSH ONE (08:06)
[2024-04-24] MEDS: AMIODARONE HCL 200 MG TABLET PO SCH (10:35)
[2024-04-24] MEDS ORDERED: SODIUM CHLORIDE 250 ML IV PRN (14:40)
[2024-04-25] MEDS: DEXTROSE 50%-WATER - 25 GM/50 ML VIAL IVPUSH ONE (05:43)
[2024-04-25] MEDS ORDERED: DEXTROSE 50%-WATER 25 GM/50 ML DISP.SYRIN ONE (05:43)
[2024-04-25 10:01] LABS: HEMATOCRIT 27.7 % (35.4-49); HEMOGLOBIN 9.1 GM/dL (11.7-16.9); MCH 30.3 pg (25.7-33.7); MCHC 32.7 g/dl (32.0-35.9); MEAN CELL VOLUME 92.6 fl (80-96); MEAN PLT VOLUME 7.8 fl (7.5-11.1); PLATELET COUNT 159 10^3/uL (134-434); RDW 17.3 % (11.9-15.9); WHITE BLOOD COUNT 6.9 K/mm3 (4.0-10.0)
[2024-04-25 10:11] LABS: CHLORIDE 99 mmol/L (98-107); POTASSIUM 2.8 mmol/L (3.5-5.1); SODIUM 136 mmol/L (136-145)
[2024-04-25] MEDS: EPOETIN ALFA-EPBX 10,000 UNIT/ML VIAL SQ ONE (10:17)
[2024-04-25 10:26] LABS: CALCIUM 7.6 mg/dL (8.5-10.1)
[2024-04-25 10:28] LABS: ALBUMIN 1.3 g/dl (3.4-5.0); ANION GAP 9 mmol/L (4-13); BLOOD UREA NITROGEN 37.2 mg/dL (7-18); CO2 28 mmol/L (21-32); GLUCOSE,RANDOM 87 mg/dL (74-106)
[2024-04-25 10:30] LABS: CREATININE 5.7 mg/dL (0.55-1.3); SGOT/AST 8 U/L (15-37); SGPT/ALT 11 U/L (13-61)
[2024-04-25 10:31] LABS: BILIRUBIN,TOTAL 1.1 mg/dL (0.2-1)
[2024-04-25 10:32] LABS: TOT PROT 4.3 g/dl (6.4-8.2)
[2024-04-25 10:33] LABS: ALK PHOS 76 U/L (45-117)
[2024-04-25] MEDS ORDERED: SODIUM CHLORIDE 250 ML IV PRN (11:47)
[2024-04-25] MEDS ORDERED: EPOETIN ALFA-EPBX 10,000 UNIT/ML VIAL SQ ONE (14:40)
[2024-04-25] MEDS: POTASSIUM CHLORIDE ORAL LIQUID 20 MEQ/15 ML PO ONE (14:49)
[2024-04-25 15:05] LABS: MAGNESIUM 1.8 mg/dL (1.8-2.4)
[2024-04-25 15:10] LABS: PHOSPHOROUS 3.5 mg/dL (2.5-4.9)
[2024-04-25] MEDS: MEROPENEM-0.9% SODIUM CHLORIDE 500 MG/50 ML BAG IVPB ONE (23:32)
[2024-04-26 11:41] LABS: POTASSIUM 3.7 mmol/L (3.5-5.1)
[2024-04-26 11:42] LABS: BLOOD UREA NITROGEN 34.2 mg/dL (7-18)
[2024-04-26 11:43] LABS: CALCIUM 7.6 mg/dL (8.5-10.1)
[2024-04-26 11:45] LABS: CREATININE 5.3 mg/dL (0.55-1.3)
[2024-04-27 00:04] VITALS: RESP 18
[2024-04-27] MEDS: APIXABAN 5 MG TABLET PO SCH ×2 (09:01→15:04)
[2024-04-27] MEDS ORDERED: SODIUM CHLORIDE 250 ML IV PRN (14:58)
[2024-04-27] MEDS: AMINO ACIDS/PROTEIN HYDROLYS 30 ML LIQUID.PKT PO SCH (17:59)
[2024-04-28 12:44] LABS: CHLORIDE 97 mmol/L (98-107); POTASSIUM 3.5 mmol/L (3.5-5.1); SODIUM 135 mmol/L (136-145)
[2024-04-28 12:46] LABS: CALCIUM 7.7 mg/dL (8.5-10.1)
[2024-04-28 12:47] LABS: ALBUMIN 1.2 g/dl (3.4-5.0); ANION GAP 11 mmol/L (4-13); BLOOD UREA NITROGEN 57.5 mg/dL (7-18); CO2 27 mmol/L (21-32); GLUCOSE,RANDOM 92 mg/dL (74-106)
[2024-04-28 12:50] LABS: SGOT/AST 9 U/L (15-37); SGPT/ALT 13 U/L (13-61)
[2024-04-28 12:51] LABS: BILIRUBIN,TOTAL 1.1 mg/dL (0.2-1); CREATININE 7.9 mg/dL (0.55-1.3)
[2024-04-28 12:52] LABS: TOT PROT 4.4 g/dl (6.4-8.2)
[2024-04-28 12:53] LABS: ALK PHOS 74 U/L (45-117)
[2024-04-28] MEDS: APIXABAN 5 MG TABLET PO SCH (13:43)
[2024-04-28] MEDS ORDERED: EPOETIN ALFA-EPBX 10,000 UNIT/ML VIAL SQ ONE (14:58)
[2024-04-28] MEDS: POTASSIUM CHLORIDE ORAL LIQUID 20 MEQ/15 ML PO ONE (17:02)
[2024-04-28] MEDS: METOPROLOL TARTRATE 25 MG TABLET (FP) PO ONE (17:02)
[2024-04-28 19:52] VITALS: BP 118/56; PULSE 74; TEMP 97.5
== END 2024-04-28 19:45 | DRG 189 ==
LOC: JER 18:49 → JERBED 23:40 → J4W 04-11 04:06 → J6S 04-15 22:40 → JICU 04-16 19:37 → J2W 04-19 21:03 → J4S 04-23 00:40
PROVIDERS: ADMIT Family Medicine; ATTEND Family Medicine
PROC: 5A1D70Z Performance of Urinary Filtration, Intermittent, Less than 6 Hours Per Day (ICD-10-PCS; 2024-04-11)
PROC: 5A1D70Z Performance of Urinary Filtration, Intermittent, Less than 6 Hours Per Day (ICD-10-PCS; 2024-04-14)
PROC: 30233N1 Transfusion of Nonautologous Red Blood Cells into Peripheral Vein, Percutaneous Approach (ICD-10-PCS; 2024-04-16)
PROC: 5A1D70Z Performance of Urinary Filtration, Intermittent, Less than 6 Hours Per Day (ICD-10-PCS; 2024-04-16)
PROC: 05HB33Z Insertion of Infusion Device into Right Basilic Vein, Percutaneous Approach (ICD-10-PCS; principal; 2024-04-17)
PROC: 5A1D70Z Performance of Urinary Filtration, Intermittent, Less than 6 Hours Per Day (ICD-10-PCS; 2024-04-18)
PROC: 5A1D70Z Performance of Urinary Filtration, Intermittent, Less than 6 Hours Per Day (ICD-10-PCS; 2024-04-21)
PROC: 5A1D70Z Performance of Urinary Filtration, Intermittent, Less than 6 Hours Per Day (ICD-10-PCS; 2024-04-23)
PROC: 5A1D70Z Performance of Urinary Filtration, Intermittent, Less than 6 Hours Per Day (ICD-10-PCS; 2024-04-25)
PROC: 5A1D70Z Performance of Urinary Filtration, Intermittent, Less than 6 Hours Per Day (ICD-10-PCS; 2024-04-28)
DX: J96.21 Acute and chronic respiratory failure with hypoxia (principal); J10.08 Influenza due to other identified influenza virus with other specified pneumonia; N18.6 End stage renal disease; A41.01 Sepsis due to Methicillin susceptible Staphylococcus aureus; J44.1 Chronic obstructive pulmonary disease with (acute) exacerbation; J44.0 Chronic obstructive pulmonary disease with (acute) lower respiratory infection; I24.89 Other forms of acute ischemic heart disease; B37.0 Candidal stomatitis; I12.0 Hypertensive chronic kidney disease with stage 5 chronic kidney disease or end stage renal disease; N39.0 Urinary tract infection, site not specified; E87.20 Acidosis, unspecified; D72.829 Elevated white blood cell count, unspecified; N40.0 Benign prostatic hyperplasia without lower urinary tract symptoms; E88.09 Other disorders of plasma-protein metabolism, not elsewhere classified; R19.5 Other fecal abnormalities; E11.22 Type 2 diabetes mellitus with diabetic chronic kidney disease; F41.9 Anxiety disorder, unspecified; R26.81 Unsteadiness on feet; D64.9 Anemia, unspecified; R68.0 Hypothermia, not associated with low environmental temperature; E87.5 Hyperkalemia; B95.61 Methicillin susceptible Staphylococcus aureus infection as the cause of diseases classified elsewhere; I48.0 Paroxysmal atrial fibrillation; R13.10 Dysphagia, unspecified; Z99.81 Dependence on supplemental oxygen
CPT/HCPCS: 0241U-QW; 36415; 36430; 71045-TC-FY; 72148-TC; 74176-TC; 76775-TC; 76856-TC; 80048; 80053; 81003; 82272; 82728; 82803; 82962; 83540; 83550; 83605; 83735; 83880; 84100; 84466; 84484; 85025; 85027; 85610; 85730; 86922; 87040; 87086; 87186; 87340; 87481; 87899; 93005; 93010; 93306-TC; 93971; 94640; 94660; 97116-GP; 97162-GP; 99285-25; G0480; J0131; J0282; J1756; P9047; P9058; Q5106

== ENCOUNTER 2024-07-07 11:57 | Inpatient (IN) | payer OTHER ==
[2024-07-07 13:06] LABS: HEMATOCRIT 32.7 % (40.1-51.0); HEMOGLOBIN 9.8 g/dL (13.7-17.5); MEAN CELL VOLUME 90.1 fl (79.0-92.2); PLATELET COUNT 310 x10^3/uL (163-337); RDW 20.6 % (12.2-16.6)
[2024-07-07 13:13] LABS: INR 0.94 (0.83-1.09); PROTHROMBIN TIME (PATIENT) 10.2 SEC (9.7-13.0)
[2024-07-07 13:16] LABS: ACTIVATED PTT 23.5 SECONDS (25.2-36.5)
[2024-07-07] MEDS ORDERED: HEPARIN NA (PORCINE) 5,000 UNITS/ML 1ML VIAL ONE (13:27)
[2024-07-07 13:38] LABS: CHLORIDE 102 mmol/L (98-107); POTASSIUM 3.6 mmol/L (3.5-5.1); SODIUM 140 mmol/L (136-145)
[2024-07-07 13:40] LABS: ALBUMIN 2.8 g/dl (3.4-5.0); CALCIUM 8.5 mg/dL (8.5-10.1)
[2024-07-07 13:41] LABS: ANION GAP 11 mmol/L (4-13); CO2 27 mmol/L (21-32); GLUCOSE,RANDOM 111 mg/dL (74-106)
[2024-07-07] MEDS ORDERED: LIDOCAINE HCL 1%, 10 MG/ML (20ML VIAL) ONE (13:41)
[2024-07-07 13:43] LABS: BLOOD UREA NITROGEN 62.1 mg/dL (7-18)
[2024-07-07 13:44] LABS: SGOT/AST 18 U/L (15-37); SGPT/ALT 18 U/L (13-61)
[2024-07-07 13:45] LABS: BILIRUBIN,TOTAL 0.4 mg/dL (0.2-1); TOT PROT 5.9 g/dl (6.4-8.2)
[2024-07-07 13:47] LABS: ALK PHOS 89 U/L (45-117)
[2024-07-07] MEDS: ceFAZolin SODIUM 1 GM VIAL IVPB ONE (15:00)
[2024-07-07] MEDS: LIDOCAINE HCL 1%, 10 MG/ML (20ML VIAL) NR ONE ×2 (15:06)
[2024-07-07 18:30] VITALS: BMI 26.4
[2024-07-08] MEDS: ACETAMINOPHEN WITH CODEINE 300MG/30MG TABLET PO PRN (09:17)
[2024-07-08] MEDS ORDERED: SODIUM CHLORIDE 250 ML IV PRN (09:55)
[2024-07-08 09:57] LABS: ABSOLUTE IMMATURE GRANULOCYTES 0.05 x10^3/uL (0.0-0.031); BASOPHILS # 0.01 x10^3/uL (0.01-0.08); EOSINOPHIL % 2.7 % (0.8-7.0); EOSINOPHILS # 0.28 x10^3/uL (0.04-0.54); HEMATOCRIT 29.3 % (40.1-51.0); HEMOGLOBIN 9.3 g/dL (13.7-17.5); MCHC 31.7 g/dl (32.3-36.5); MEAN PLT VOLUME 8.9 fl (9.4-12.4); MONOCYTE % 11.5 % (5.3-12.2); PLATELET COUNT 267 x10^3/uL (163-337); RDW 20.3 % (12.2-16.6)
[2024-07-08] MEDS: BUDESONIDE/FORMETEROL FUMARATE 160/4.5 mcg INHALER IH SCH (10:11)
[2024-07-08] MEDS: INSULIN GLARGINE (LANTUS) 100 UNITS/ML UNITS SQ SCH (10:11)
[2024-07-08 10:35] LABS: CHLORIDE 103 mmol/L (98-107); POTASSIUM 3.1 mmol/L (3.5-5.1); SODIUM 141 mmol/L (136-145)
[2024-07-08] MEDS: EPOETIN ALFA-EPBX 10,000 UNIT/ML VIAL SQ ONE (10:39)
[2024-07-08 10:43] LABS: ANION GAP 11 mmol/L (4-13); CALCIUM 8.2 mg/dL (8.5-10.1); CO2 26 mmol/L (21-32); MAGNESIUM 1.9 mg/dL (1.8-2.4)
[2024-07-08 10:44] LABS: ALBUMIN 2.3 g/dl (3.4-5.0); GLUCOSE,RANDOM 119 mg/dL (74-106)
[2024-07-08 10:46] LABS: PHOSPHOROUS 4.4 mg/dL (2.5-4.9); SGOT/AST 8 U/L (15-37); SGPT/ALT 10 U/L (13-61)
[2024-07-08 10:47] LABS: BLOOD UREA NITROGEN 64.9 mg/dL (7-18)
[2024-07-08 10:48] LABS: BILIRUBIN,TOTAL 0.4 mg/dL (0.2-1); TOT PROT 5.5 g/dl (6.4-8.2)
[2024-07-08 10:49] LABS: ALK PHOS 63 U/L (45-117)
[2024-07-08] MEDS: INSULIN ASPART SLIDING SCALE (NOVOLOG) 1 VIAL SQ SCH (11:05)
[2024-07-08] MEDS: VANCOMYCIN/WATER FOR INJ (PEG) 1,000 MG/200 ML BAG IVPB ONE (13:00)
[2024-07-08] MEDS: SEVELAMER CARBONATE 800 MG TAB (FP) PO SCH (13:03)
[2024-07-08] MEDS: FUROSEMIDE 20 MG TABLET (FP) PO SCH (13:04)
[2024-07-08] MEDS: PANTOPRAZOLE 40 MG TABLET PO SCH (13:04)
[2024-07-08] MEDS: POTASSIUM CHLORIDE ORAL LIQUID 20 MEQ/15 ML PO ONE (13:08)
[2024-07-08] MEDS: AMIODARONE HCL 100 MG TABLET PO SCH (13:08)
[2024-07-08] MEDS: ALBUTEROL SO4 2.5/IPRATROPIUM 0.5 INH SOL 3 ML VIAL.NEB. NEB PRN (17:40)
[2024-07-09] MEDS: DEXTROSE 50%-WATER 25 GM/50 ML DISP.SYRIN IVPUSH ONE (06:46)
[2024-07-09] MEDS: GLUCAGON 1 MG KIT IM ONE (07:21)
[2024-07-09] MEDS ORDERED: GlUCAGON HUMAN RECOMBINANT 1 MG/VIAL IM PRN (07:56)
[2024-07-09] MEDS: TAMSULOSIN HCL 0.4 MG CAP PO SCH (08:45)
[2024-07-09] MEDS: DEXTROSE 5%-NORMAL SALINE 1,000 ML IV SCH (13:14)
[2024-07-09] MEDS ORDERED: SODIUM CHLORIDE 250 ML IV PRN (16:23)
[2024-07-09] MEDS: VANCOMYCIN/WATER FOR INJ (PEG) 1,000 MG/200 ML BAG IVPB ONE (17:08)
[2024-07-10] MEDS: GLUCAGON 1 MG KIT IM PRN (05:56)
[2024-07-10 08:10] LABS: HEMATOCRIT 33.7 % (40.1-51.0); HEMOGLOBIN 10.2 g/dL (13.7-17.5); MCHC 30.3 g/dl (32.3-36.5); MEAN CELL VOLUME 90.3 fl (79.0-92.2); MEAN PLT VOLUME 9.7 fl (9.4-12.4); PLATELET COUNT 208 x10^3/uL (163-337); RDW 20.2 % (12.2-16.6)
[2024-07-10] MEDS: HEPARIN NA (PORCINE) 5,000 UNITS/ML 1ML VIAL IVPUSH ONE (11:00)
[2024-07-10 12:00] LABS: CHLORIDE 101 mmol/L (98-107); POTASSIUM 3.9 mmol/L (3.5-5.1); SODIUM 137 mmol/L (136-145)
[2024-07-10 12:03] LABS: CALCIUM 8.1 mg/dL (8.5-10.1)
[2024-07-10 12:04] LABS: ANION GAP 7 mmol/L (4-13); CO2 29 mmol/L (21-32); GLUCOSE,RANDOM 110 mg/dL (74-106)
[2024-07-10 12:07] LABS: CREATININE 5.5 mg/dL (0.55-1.3); SGOT/AST 10 U/L (15-37); SGPT/ALT < 6 U/L (13-61)
[2024-07-10 12:08] LABS: BILIRUBIN,TOTAL 0.3 mg/dL (0.2-1)
[2024-07-10 12:09] LABS: TOT PROT 4.6 g/dl (6.4-8.2)
[2024-07-10 12:10] LABS: ALK PHOS 64 U/L (45-117)
[2024-07-10] MEDS: EPOETIN ALFA-EPBX 10,000 UNIT/ML VIAL SQ ONE (12:16)
[2024-07-10] MEDS: ALBUTEROL SO4 0.083% IH SOL 2.5 MG/3 ML VIAL.NEB. NEB PRN (15:35)
[2024-07-10] MEDS ORDERED: SODIUM CHLORIDE 250 ML IV PRN (16:10)
[2024-07-10] MEDS: oxyCODONE HCL 5 MG TABLET PO PRN (22:05)
[2024-07-11 08:40] LABS: HEMATOCRIT 34.7 % (40.1-51.0); HEMOGLOBIN 10.2 g/dL (13.7-17.5); MCHC 29.4 g/dl (32.3-36.5); MEAN CELL VOLUME 90.6 fl (79.0-92.2); MEAN PLT VOLUME 9.9 fl (9.4-12.4); PLATELET COUNT 233 x10^3/uL (163-337); RDW 20.1 % (12.2-16.6)
[2024-07-11 08:50] LABS: CHLORIDE 100 mmol/L (98-107); POTASSIUM 4.1 mmol/L (3.5-5.1); SODIUM 137 mmol/L (136-145)
[2024-07-11 08:53] LABS: CALCIUM 8.2 mg/dL (8.5-10.1)
[2024-07-11 08:54] LABS: ALBUMIN 2.2 g/dl (3.4-5.0); ANION GAP 4 mmol/L (4-13); CO2 32 mmol/L (21-32); GLUCOSE,RANDOM 110 mg/dL (74-106)
[2024-07-11 08:57] LABS: CREATININE 4.7 mg/dL (0.55-1.3); SGOT/AST 12 U/L (15-37); SGPT/ALT < 6 U/L (13-61)
[2024-07-11 08:58] LABS: BILIRUBIN,TOTAL 0.3 mg/dL (0.2-1)
[2024-07-11 08:59] LABS: TOT PROT 5.2 g/dl (6.4-8.2)
[2024-07-11 09:00] LABS: ALK PHOS 66 U/L (45-117)
[2024-07-12] MEDS: EPOETIN ALFA-EPBX 10,000 UNIT/ML VIAL SQ ONE (02:58)
[2024-07-12] MEDS: guaiFENesin/D-METHORPHAN HB 10 ML UNIT-DOSE CUPS PO PRN (20:50)
[2024-07-13] MEDS ORDERED: DEXTROSE 50%-WATER 25 GM/50 ML DISP.SYRIN ONE ×2 (00:17→02:48)
[2024-07-13] MEDS: DEXTROSE 5%-WATER - 1,000 ML IV SCH ×2 (00:43→02:44)
[2024-07-13] MEDS: DEXTROSE 50%-WATER 25 GM/50 ML DISP.SYRIN IVPUSH ONE (00:43)
[2024-07-13] MEDS: DEXTROSE 25 % IN WATER 2.5 GM/10 ML SYRINGE IVPB ONE (01:07)
[2024-07-13] MEDS: DEXTROSE 50%-WATER 25 GM/50 ML DISP.SYRIN IVPUSH PRN (02:51)
[2024-07-13] MEDS: DEXTROSE 50%-WATER - 25 GM/50 ML VIAL IVPUSH ONE (02:59)
[2024-07-13] MEDS ORDERED: VANCOMYCIN/WATER FOR INJ (PEG) 1,000 MG/200 ML BAG IVPB ONE (10:00)
[2024-07-13] MEDS: VANCOMYCIN 1 GM PREMIX (F) 1,000 MG/200 ML BAG IVPB ONE (13:55)
[2024-07-13] MEDS ORDERED: SODIUM CHLORIDE 250 ML IV PRN (15:12)
[2024-07-13] MEDS: INSULIN ASPART SLIDING SCALE (NOVOLOG) 1 VIAL SQ SCH (21:20)
[2024-07-14] MEDS: ACETAMINOPHEN 325 MG TABLET (FP) PO PRN (08:38)
[2024-07-14 08:54] LABS: HEMATOCRIT 31.4 % (40.1-51.0); HEMOGLOBIN 9.4 g/dL (13.7-17.5); MCHC 29.9 g/dl (32.3-36.5); MEAN PLT VOLUME 9.7 fl (9.4-12.4); PLATELET COUNT 214 x10^3/uL (163-337); RDW 19.9 % (12.2-16.6)
[2024-07-14 09:17] LABS: CHLORIDE 91 mmol/L (98-107); POTASSIUM 4.6 mmol/L (3.5-5.1); SODIUM 127 mmol/L (136-145)
[2024-07-14 09:46] LABS: ALBUMIN 1.9 g/dl (3.4-5.0)
[2024-07-14 09:48] LABS: CALCIUM 8.2 mg/dL (8.5-10.1)
[2024-07-14 09:49] LABS: ANION GAP 10 mmol/L (4-13); BLOOD UREA NITROGEN 26.7 mg/dL (7-18); CO2 26 mmol/L (21-32); GLUCOSE,RANDOM 86 mg/dL (74-106)
[2024-07-14 09:51] LABS: CREATININE 5.9 mg/dL (0.55-1.3); SGOT/AST 15 U/L (15-37); SGPT/ALT < 6 U/L (13-61)
[2024-07-14 09:53] LABS: TOT PROT 4.7 g/dl (6.4-8.2)
[2024-07-14 09:54] LABS: BILIRUBIN,TOTAL 0.4 mg/dL (0.2-1)
[2024-07-14 09:55] LABS: ALK PHOS 70 U/L (45-117)
[2024-07-14] MEDS: EPOETIN ALFA-EPBX 10,000 UNIT/ML VIAL IVPUSH ONE (16:06)
[2024-07-14 17:21] VITALS: BP 133/73; PULSE 66; RESP 20; TEMP 97.7
== END 2024-07-14 18:10 | DRG 314 ==
LOC: JER 11:57 → JERBED 12:36 → OBSVTOIN 15:23 → J6S 16:40
PROVIDERS: ADMIT Internal Medicine; ATTEND Internal Medicine
PROC: 02HV33Z Insertion of Infusion Device into Superior Vena Cava, Percutaneous Approach (ICD-10-PCS; 2024-07-07)
PROC: 0JH63XZ Insertion of Tunneled Vascular Access Device into Chest Subcutaneous Tissue and Fascia, Percutaneous Approach (ICD-10-PCS; principal; 2024-07-07 14:30)
PROC: 5A1D70Z Performance of Urinary Filtration, Intermittent, Less than 6 Hours Per Day (ICD-10-PCS; 2024-07-14)
DX: T82.590A Other mechanical complication of surgically created arteriovenous fistula, initial encounter (principal); J18.9 Pneumonia, unspecified organism; N18.6 End stage renal disease; I13.2 Hypertensive heart and chronic kidney disease with heart failure and with stage 5 chronic kidney disease, or end stage renal disease; I50.32 Chronic diastolic (congestive) heart failure; E87.1 Hypo-osmolality and hyponatremia; E11.22 Type 2 diabetes mellitus with diabetic chronic kidney disease; D64.9 Anemia, unspecified; I48.0 Paroxysmal atrial fibrillation; T82.7XXA Infection and inflammatory reaction due to other cardiac and vascular devices, implants and grafts, initial encounter; Y83.9 Surgical procedure, unspecified as the cause of abnormal reaction of the patient, or of later complication, without mention of misadventure at the time of the procedure; E11.649 Type 2 diabetes mellitus with hypoglycemia without coma; Z99.2 Dependence on renal dialysis
CPT/HCPCS: 36415; 71045-TC-FY; 76000-TC-FY; 80053; 82533; 82962; 83735; 84100; 85025; 85027; 85610; 85730; 86850; 86900; 86901; 87040; 93005; 93010; 93985; 94640; 94760; 97116-GP; 97161-GP; 99285-25; C1750; G0378; G0480; J1644; Q5106

== ENCOUNTER 2024-09-03 06:29 | Day surgery (SDC) | payer OTHER ==
[2024-09-03] MEDS ORDERED: PAPAVERINE HCL 30 MG/1 ML 10 ML VIAL NR ONE (07:15)
[2024-09-03] MEDS ORDERED: HEPARIN NA (PORCINE) 5,000 UNITS/ML 1ML VIAL ONE (07:15)
[2024-09-03] MEDS ORDERED: POVIDONE-IODINE OINTMENT 10% - 28.4 GM TUBE ONE (07:15)
[2024-09-03] MEDS ORDERED: LIDOCAINE HCL 1%, 10 MG/ML (20ML VIAL) ONE (07:15)
[2024-09-03] MEDS ORDERED: DEXMEDETOMIDINE HCL 200 MCG/2 ML IVPB ONE (07:58)
[2024-09-03] MEDS: ceFAZolin SODIUM 1 GM VIAL IVPB ONE ×3 (08:02)
[2024-09-03] MEDS ORDERED: ceFAZolin SODIUM 1 GM VIAL ONE (08:03)
[2024-09-03] MEDS: LIDOCAINE HCL 1%, 10 MG/ML (20ML VIAL) INF ONE ×3 (08:16)
[2024-09-03] MEDS: POVIDONE-IODINE OINTMENT 10% - 28.4 GM TUBE TP ONE ×2 (09:38)
[2024-09-03] MEDS ORDERED: ONDANSETRON 4 MG/2 ML VIAL IVPUSH PRN (09:51)
[2024-09-03] MEDS: LACTATED RINGERS SOLUTION 1,000 ML IV SCH (10:23)
[2024-09-03 11:15] VITALS: RESP 16; TEMP 97.6
[2024-09-03 12:21] VITALS: BP 150/70; PULSE 62
== END 2024-09-03 12:23 | disposition home or self-care (01) ==
LOC: JASU-SURG 06:29
PROVIDERS: ATTEND Surgery
PROC: 03180JF Bypass Left Brachial Artery to Lower Arm Vein with Synthetic Substitute, Open Approach (ICD-10-PCS; principal; 2024-09-03 08:00)
DX: N18.6 End stage renal disease (principal); I13.2 Hypertensive heart and chronic kidney disease with heart failure and with stage 5 chronic kidney disease, or end stage renal disease; E11.22 Type 2 diabetes mellitus with diabetic chronic kidney disease; I50.9 Heart failure, unspecified; N17.9 Acute kidney failure, unspecified; Z99.2 Dependence on renal dialysis; Z79.4 Long term (current) use of insulin
CPT/HCPCS: 82962; 94760

== ENCOUNTER 2024-10-20 13:32 | Inpatient (IN) | payer OTHER ==
[2024-10-20 14:15] VITALS: BMI 22.7
[2024-10-20] MEDS ORDERED: methylPREDNISolone NA SUCC 125 MG/2 ML VIAL ONE (14:27)
[2024-10-20] MEDS ORDERED: ALBUTEROL SO4 2.5/IPRATROPIUM 0.5 INH SOL 3 ML VIAL.NEB. NEB ONE ×2 (14:27→14:43)
[2024-10-20] MEDS: ALBUTEROL SO4 2.5/IPRATROPIUM 0.5 INH SOL 3 ML VIAL.NEB. NEB SCH (14:36)
[2024-10-20] MEDS: methylPREDNISolone NA SUCC 125 MG/2 ML VIAL IVPB ONE (14:39)
[2024-10-20 15:21] LABS: ABSOLUTE IMMATURE GRANULOCYTES 0.04 x10^3/uL (0.0-0.031); BASOPHILS # 0.02 x10^3/uL (0.01-0.08); EOSINOPHIL % 7.2 % (0.8-7.0); EOSINOPHILS # 0.75 x10^3/uL (0.04-0.54); MCHC 30.1 g/dl (32.3-36.5); MEAN CELL VOLUME 89.4 fl (79.0-92.2); MEAN PLT VOLUME 8.4 fl (9.4-12.4); MONOCYTE # 0.88 x10^3/uL (0.30-0.82); MONOCYTE % 8.5 % (5.3-12.2); RDW 19.3 % (12.2-16.6)
[2024-10-20 15:30] LABS: INR 1.02 (0.83-1.09); PROTHROMBIN TIME (PATIENT) 11.1 SEC (9.7-13.0)
[2024-10-20 15:33] LABS: ACTIVATED PTT 34.5 SECONDS (25.2-36.5)
[2024-10-20 15:40] LABS: CO2 29.0 mmol/L (21-32); GLUCOSE,RANDOM 83.0 mg/dL (74-106)
[2024-10-20 15:43] LABS: BG HCT 34.0 % (35.4-49); VENOUS BASE EXCESS 0.7 mmol/L (-2-2); VENOUS O2 SATURATION 45.4 % (70-80); VENOUS PCO2 58.7 mmHg (38-52); VENOUS PH 7.298 (7.310-7.410)
[2024-10-20 15:43] LABS: CREATININE 5.9 mg/dL (0.55-1.3); SGOT/AST 15.0 U/L (15-37); SGPT/ALT 15.0 U/L (13-61)
[2024-10-20 15:45] LABS: TOT PROT 6.2 g/dl (6.4-8.2)
[2024-10-20 15:46] LABS: ALK PHOS 99.0 U/L (45-117)
[2024-10-20 15:48] LABS: N-TERMINAL BNP 3140.4 pg/ml (5-450)
[2024-10-20 18:04] LABS: HCV DIAGNOSTIC IN-HOUSE W/RFLX NON-REACTIVE (NONREACTIVE)
[2024-10-20 18:05] LABS: HIV INTERPRETATION NEGATIVE (NEGATIVE)
[2024-10-20] MEDS ORDERED: HEPARIN NA (PORCINE) 5,000 UNITS/ML 1ML VIAL SQ ONE (20:01)
[2024-10-20] MEDS: methylPREDNISolone NA SUCC 40 MG/1 ML VIAL IVPUSH SCH (21:44)
[2024-10-21] MEDS: PIPERACILLIN/TAZOB 2.25 GM 2.25 GM in DEXTROSE 5%-WATER - 50 ML IVPB SCH ×3 (02:07→19:59)
[2024-10-21] MEDS: AZITHROMYCIN IVPB 500 MG/250 ML BAG IVPB SCH (02:47)
[2024-10-21] MEDS: INSULIN ASPART SLIDING SCALE (NOVOLOG) 1 VIAL SQ SCH (06:23)
[2024-10-21] MEDS: BUDESONIDE 0.5 MG/2 ML INH SUSP VIAL NEB SCH (07:59)
[2024-10-21 08:30] LABS: MCHC 29.5 g/dl (32.3-36.5); MEAN CELL VOLUME 89.6 fl (79.0-92.2); MEAN PLT VOLUME 9.0 fl (9.4-12.4); RDW 19.0 % (12.2-16.6)
[2024-10-21 09:01] LABS: CO2 27.0 mmol/L (21-32); GLUCOSE,RANDOM 152.0 mg/dL (74-106)
[2024-10-21 09:03] LABS: CREATININE 7.4 mg/dL (0.55-1.3)
[2024-10-21 09:04] LABS: SGOT/AST 25.0 U/L (15-37); SGPT/ALT 13.0 U/L (13-61)
[2024-10-21 09:05] LABS: TOT PROT 6.2 g/dl (6.4-8.2)
[2024-10-21 09:07] LABS: ALK PHOS 99.0 U/L (45-117)
[2024-10-21] MEDS: AMIODARONE HCL 100 MG TABLET PO SCH (10:13)
[2024-10-21] MEDS: SEVELAMER CARBONATE 800 MG TAB (FP) PO SCH (10:13)
[2024-10-21] MEDS: TAMSULOSIN HCL 0.4 MG CAP PO SCH (10:13)
[2024-10-21] MEDS: FUROSEMIDE 20 MG TABLET (FP) PO SCH (10:13)
[2024-10-21] MEDS: PANTOPRAZOLE 40 MG TABLET PO SCH (10:13)
[2024-10-21] MEDS: NICOTINE 7 MG/24 HOURS TOPICAL PATCH TD SCH (10:13)
[2024-10-21 11:38] VITALS: RESP 18
[2024-10-21] MEDS ORDERED: SODIUM CHLORIDE 250 ML IV PRN (12:43)
[2024-10-21] MEDS: EPOETIN ALFA-EPBX 10,000 UNIT/ML VIAL IVPUSH ONE (16:12)
[2024-10-21] MEDS ORDERED: PIPERACILLIN/TAZOBACTAM 2.25 GM VIAL IVPB ONE (19:04)
[2024-10-21 20:07] LABS: CO2 32.0 mmol/L (21-32); GLUCOSE,RANDOM 181.0 mg/dL (74-106)
[2024-10-21 20:10] LABS: CREATININE 3.1 mg/dL (0.55-1.3); SGOT/AST 32.0 U/L (15-37); SGPT/ALT 14.0 U/L (13-61)
[2024-10-21 20:12] LABS: TOT PROT 5.9 g/dl (6.4-8.2)
[2024-10-21 20:13] LABS: ALK PHOS 87.0 U/L (45-117)
[2024-10-21] MEDS: ALBUTEROL SO4 2.5/IPRATROPIUM 0.5 INH SOL 3 ML VIAL.NEB. NEB PRN (20:43)
[2024-10-21] MEDS: BENZOCAINE/MENTH/CETYLPYRD CL 1 EACH LOZENGE MM ONE (21:13)
[2024-10-21] MEDS: MONTELUKAST NA 10 MG TABLET PO SCH (21:13)
[2024-10-21] MEDS: MOMETASONE FUROATE 220 MCG/IH INHALER IH SCH (21:14)
[2024-10-21] MEDS: guaiFENesin/D-METHORPHAN HB 10 ML UNIT-DOSE CUPS PO ONE (21:14)
[2024-10-22 09:06] LABS: ABSOLUTE IMMATURE GRANULOCYTES 0.15 x10^3/uL (0.0-0.031); BASOPHILS # 0.02 x10^3/uL (0.01-0.08); EOSINOPHIL % 0.0 % (0.8-7.0); EOSINOPHILS # 0.00 x10^3/uL (0.04-0.54); MCHC 30.6 g/dl (32.3-36.5); MEAN CELL VOLUME 88.2 fl (79.0-92.2); MEAN PLT VOLUME 8.9 fl (9.4-12.4); MONOCYTE # 1.46 x10^3/uL (0.30-0.82); MONOCYTE % 9.5 % (5.3-12.2); RDW 19.1 % (12.2-16.6)
[2024-10-22 09:44] LABS: CO2 35.0 mmol/L (21-32); GLUCOSE,RANDOM 112.0 mg/dL (74-106)
[2024-10-22 09:47] LABS: ALK PHOS 76.0 U/L (45-117); CREATININE 4.6 mg/dL (0.55-1.3); SGOT/AST 23.0 U/L (15-37); SGPT/ALT 13.0 U/L (13-61)
[2024-10-22 09:48] LABS: TOT PROT 5.6 g/dl (6.4-8.2)
[2024-10-22] MEDS: predniSONE 20 MG TABLET (UD) PO SCH (09:52)
[2024-10-22] MEDS: CALCITRIOL 0.25 MCG CAPSULE (FP) PO SCH (09:52)
[2024-10-22] MEDS: AZITHROMYCIN 250 MG TABLET PO SCH (09:52)
[2024-10-22] MEDS: guaiFENesin 200 MG/10 ML 10 ML UNIT-DOSE CUPS PO PRN (11:40)
[2024-10-22] MEDS: ALBUTEROL SO4 2.5/IPRATROPIUM 0.5 INH SOL 3 ML VIAL.NEB. NEB ONE (15:19)
[2024-10-22 16:52] VITALS: BP 137/72; PULSE 78; TEMP 98.6
== END 2024-10-22 16:57 | DRG 193 ==
LOC: JER 13:32 → JERBED 16:33 → J5S 17:38
PROVIDERS: ADMIT Family Medicine; ATTEND Internal Medicine
PROC: 5A1D70Z Performance of Urinary Filtration, Intermittent, Less than 6 Hours Per Day (ICD-10-PCS; principal; 2024-10-21)
DX: J18.9 Pneumonia, unspecified organism (principal); N18.6 End stage renal disease; I13.2 Hypertensive heart and chronic kidney disease with heart failure and with stage 5 chronic kidney disease, or end stage renal disease; J44.1 Chronic obstructive pulmonary disease with (acute) exacerbation; I50.32 Chronic diastolic (congestive) heart failure; J44.0 Chronic obstructive pulmonary disease with (acute) lower respiratory infection; J96.11 Chronic respiratory failure with hypoxia; E11.22 Type 2 diabetes mellitus with diabetic chronic kidney disease; E87.5 Hyperkalemia; Z99.2 Dependence on renal dialysis
CPT/HCPCS: 36415; 71045-TC-FY; 71250-TC; 80053; 82803; 82962; 83735; 83880; 84100; 84484; 85025; 85610; 85730; 86803; 87081; 87340; 87389; 87637-QW; 87899; 93005; 93010; 94640; 97116-GP; 97161-GP; 99291; Q5106

== ENCOUNTER 2024-11-26 15:20 | Inpatient (IN) | payer OTHER ==
[2024-11-26 15:53] VITALS: RESP 18
[2024-11-26 17:41] LABS: ABSOLUTE IMMATURE GRANULOCYTES 0.60 x10^3/uL (0.0-0.031); BASOPHILS # 0.06 x10^3/uL (0.01-0.08); EOSINOPHIL % 0.0 % (0.8-7.0); EOSINOPHILS # 0.00 x10^3/uL (0.04-0.54); MCHC 30.6 g/dl (32.3-36.5); MEAN CELL VOLUME 89.6 fl (79.0-92.2); MEAN PLT VOLUME 8.8 fl (9.4-12.4); MONOCYTE # 0.71 x10^3/uL (0.30-0.82); MONOCYTE % 5.3 % (5.3-12.2); RDW 20.5 % (12.2-16.6)
[2024-11-26 17:51] LABS: INR 0.97 (0.83-1.09); PROTHROMBIN TIME (PATIENT) 10.7 SEC (9.7-13.0)
[2024-11-26 17:54] LABS: ACTIVATED PTT 28.3 SECONDS (25.2-36.5)
[2024-11-26 18:25] LABS: HIV INTERPRETATION NEGATIVE (NEGATIVE)
[2024-11-26 18:26] LABS: HCV DIAGNOSTIC IN-HOUSE W/RFLX NON-REACTIVE (NONREACTIVE)
[2024-11-26 18:45] LABS: GLUCOSE,RANDOM 125.0 mg/dL (74-106)
[2024-11-26 18:46] LABS: TOT PROT 6.8 g/dl (6.4-8.2)
[2024-11-26 18:47] LABS: CO2 25.0 mmol/L (21-32)
[2024-11-26 18:49] LABS: ALK PHOS 103.0 U/L (40-150)
[2024-11-26 18:51] LABS: SGOT/AST 15.0 U/L (5-34); SGPT/ALT 6.0 U/L (0-55)
[2024-11-26 18:52] LABS: CREATININE 5.17 mg/dL (0.55-1.3)
[2024-11-27] MEDS ORDERED: ALBUTEROL SO4 2.5/IPRATROPIUM 0.5 INH SOL 3 ML VIAL.NEB. NEB SCH (01:00)
[2024-11-27] MEDS ORDERED: diphenhydrAMINE HCL 25 MG CAPSULE (FP) PO ONE (02:15)
[2024-11-27] MEDS ORDERED: INSULIN ASPART SLIDING SCALE (NOVOLOG) 1 VIAL SQ ONE (02:16)
[2024-11-27] MEDS: INSULIN ASPART SLIDING SCALE (NOVOLOG) 1 VIAL SQ SCH (02:22)
[2024-11-27] MEDS: diphenhydrAMINE HCL 25 MG CAPSULE (FP) PO SCH (02:22)
[2024-11-27 03:51] VITALS: BMI 21.9
[2024-11-27] MEDS: BUDESONIDE 0.5 MG/2 ML INH SUSP VIAL NEB SCH (07:35)
[2024-11-27 07:38] LABS: MCHC 30.8 g/dl (32.3-36.5); MEAN CELL VOLUME 89.0 fl (79.0-92.2); MEAN PLT VOLUME 9.1 fl (9.4-12.4); RDW 19.7 % (12.2-16.6)
[2024-11-27] MEDS: ALBUTEROL SO4 2.5/IPRATROPIUM 0.5 INH SOL 3 ML VIAL.NEB. NEB PRN (07:42)
[2024-11-27 08:28] LABS: GLUCOSE,RANDOM 77 mg/dL (74-106)
[2024-11-27 08:29] LABS: CO2 26 mmol/L (21-32); TOT PROT 4.7 g/dl (6.4-8.2)
[2024-11-27] MEDS ORDERED: TAMSULOSIN HCL 0.4 MG CAP PO SCH (08:30)
[2024-11-27 08:31] LABS: ALK PHOS 64 U/L (40-150)
[2024-11-27 08:34] LABS: CREATININE 6.76 mg/dL (0.55-1.3); SGOT/AST 10 U/L (5-34); SGPT/ALT < 6 U/L (0-55)
[2024-11-27] MEDS: FUROSEMIDE 20 MG TABLET (FP) PO SCH (10:38)
[2024-11-27] MEDS: TAMSULOSIN HCL 0.4 MG CAP PO SCH (10:38)
[2024-11-27] MEDS: PANTOPRAZOLE 40 MG TABLET PO SCH (10:38)
[2024-11-27] MEDS ORDERED: SODIUM CHLORIDE 250 ML IV PRN (14:51)
[2024-11-27 15:24] VITALS: TEMP 97.8
[2024-11-27] MEDS: AMIODARONE HCL 100 MG TABLET PO SCH (17:08)
[2024-11-27] MEDS: DEXTROSE 10%-WATER - 1,000 ML IV SCH (17:08)
[2024-11-27 18:04] VITALS: PULSE 60
[2024-11-27 18:05] VITALS: BP 109/66
[2024-11-27] MEDS: MAGNESIUM OXIDE 400 MG TABLET (FP) PO ONE (20:40)
[2024-11-27] MEDS: MONTELUKAST NA 10 MG TABLET PO SCH (21:30)
== END 2024-11-27 23:50 | DRG 314 ==
LOC: JER 15:20 → JERBED 17:32 → J7W 11-27 02:44
PROVIDERS: ADMIT Internal Medicine; ATTEND Student in an Organized Health Care Education/Training Program
PROC: 02HV33Z Insertion of Infusion Device into Superior Vena Cava, Percutaneous Approach (ICD-10-PCS; principal; 2024-11-27)
PROC: B548ZZA Ultrasonography of Superior Vena Cava, Guidance (ICD-10-PCS; 2024-11-27)
PROC: 05PYX3Z Removal of Infusion Device from Upper Vein, External Approach (ICD-10-PCS; 2024-11-27)
PROC: 5A1D70Z Performance of Urinary Filtration, Intermittent, Less than 6 Hours Per Day (ICD-10-PCS; 2024-11-27)
DX: T82.594A Other mechanical complication of infusion catheter, initial encounter (principal); N18.6 End stage renal disease; I12.0 Hypertensive chronic kidney disease with stage 5 chronic kidney disease or end stage renal disease; J44.9 Chronic obstructive pulmonary disease, unspecified; Z99.81 Dependence on supplemental oxygen; E11.9 Type 2 diabetes mellitus without complications; E11.22 Type 2 diabetes mellitus with diabetic chronic kidney disease; Z99.2 Dependence on renal dialysis; Y83.8 Other surgical procedures as the cause of abnormal reaction of the patient, or of later complication, without mention of misadventure at the time of the procedure; I48.0 Paroxysmal atrial fibrillation
CPT/HCPCS: 36415; 36581; 71045-TC-FY; 80053; 82962; 83735; 84100; 85025; 85027; 85610; 85730; 86803; 86850; 86900; 86901; 87340; 87389; 93005; 93010; 94640; 94760; 99285-25